=== PATIENT | female | born 1950 | race Caucasian/White ===

== ENCOUNTER 2019-10-27 09:37 | Outpatient (CLI) | payer MEDICARE, SELFPAY ==
[2019-10-27 09:59] LABS: Appearance Urine Clear (Clear); Bilirubin Urine Negative (Negative); Color Urine Yellow (Yellow); Glucose Urine UA Negative (Negative); Ketones Urine Negative (Negative); Leukocyte Esterase Ur 1+ (Negative); Nitrate Urine Negative (Negative); Protein Urine Negative (Negative); Specific Grav Ur 1.025 (1.010-1.020); Urobilinogen Urine 0.2 mg/dL (0.2-1.0); pH Urine 5.5 (5.0-8.0)
[2019-10-27 10:12] LABS: Add Urine Microscopic? YES; Blood Urine Trace (Negative); RBC Urine 0-2 /hpf (0-2)
[2019-10-27 10:13] LABS: Bacteria Urine Trace /hpf; Squamous Epithelial Cell Urine Few /hpf (Few)
[2019-10-27 10:50] LABS: Alanine Aminotransferase 30 U/L (14-59); Albumin Level 3.7 g/dL (3.4-5.0); Alkaline Phosphatase 85 U/L (46-116); Anion Gap 8 mmol/L (8-16); Aspartate Amino Transferase 23 U/L (15-37); Bilirubin,Total 0.8 mg/dL (0.00-1.00); Blood Urea Nitrogen 20 mg/dL (7-18); Calcium 9.7 mg/dL (8.5-10.1); Carbon Dioxide 28 mmol/L (21-32); Chloride 105 mmol/L (98-108); Cholesterol 165 mg/dL (0-200); Creatine Kinase 69 U/L (26-192); Estimated Glomerular Filt Rate 40; Glucose 103 mg/dL (70-99); HDL Direct 41 mg/dL (40-60); LDL Cholesterol Calculated 94 mg/dL (<130); Osmolality Calculated 294 mOsm/kg (285-295); Potassium 4.4 mmol/L (3.5-5.1); Sodium 141 mmol/L (136-145); Total Protein 6.5 g/dL (6.4-8.2); Triglycerides 152 mg/dL (0-150)
== END 2019-10-27 09:38 | disposition home or self-care (01) ==
LOC: CHSLAB 09:40
PROVIDERS: PCP Internal Medicine; Visit Provider Internal Medicine
DX: N18.2 Chronic kidney disease, stage 2 (mild) (principal); I12.9 Hypertensive chronic kidney disease with stage 1 through stage 4 chronic kidney disease, or unspecified chronic kidney disease; E78.2 Mixed hyperlipidemia; R73.01 Impaired fasting glucose
CPT/HCPCS: 36415; 80053; 80061; 81001; 82550; 83036

== ENCOUNTER 2020-05-10 10:01 | Outpatient (CLI) | payer MEDICARE, SELFPAY ==
[2020-05-10 10:23] LABS: Basophils Absolute Auto 0.07 K/mm3 (0.00-0.10); Eosinophils Absolute Auto 0.27 K/mm3 (0.02-0.50); Hematocrit 42.9 % (35.0-42.0); Hemoglobin 14.4 g/dL (11.7-13.8); Immature Granulocyte Absolute 0.02 K/mm3 (0.00-0.00); Immature Granulocyte Percent A 0.3 % (0.0-0.0); Lymphocytes Absolute Auto 1.61 K/mm3 (1.10-4.50); Lymphocytes Percent Auto 23.9 % (18.0-42.0); Mean Corpuscular HGB Conc 33.6 g/dL (32.0-36.0); Mean Corpuscular Volume 89.4 fL (78.0-102.0); Monocytes Absolute Auto 0.53 K/mm3 (0.10-0.90); Monocytes Percent Auto 7.9 % (2.0-11.0); Neutrophils Absolute Auto 4.2 K/mm3 (1.7-7.2); Neutrophils Percent Auto 62.9 % (50.0-70.0); Platelet Count Result 168 K/mm3 (150-420); Red Cell Distribution Width 13.3 % (11.6-14.4); White Blood Count 6.7 K/mm3 (4.8-10.8)
[2020-05-10 10:33] LABS: Hemoglobin A1C 5.4 % (<5.7)
[2020-05-10 10:40] LABS: Add Urine Microscopic? NO; Appearance Urine Clear (Clear); Bilirubin Urine Negative (Negative); Blood Urine Negative (Negative); Color Urine Yellow (Yellow); Glucose Urine UA Negative (Negative); Ketones Urine Negative (Negative); Leukocyte Esterase Ur Negative (Negative); Nitrate Urine Negative (Negative); Protein Urine Negative (Negative); Specific Grav Ur 1.015 (1.010-1.020); Urobilinogen Urine 0.2 mg/dL (0.2-1.0)
[2020-05-10 11:13] LABS: Alanine Aminotransferase 29 U/L (14-59); Albumin Level 3.9 g/dL (3.4-5.0); Alkaline Phosphatase 87 U/L (46-116); Anion Gap 6 mmol/L (8-16); Aspartate Amino Transferase 16 U/L (15-37); Bilirubin,Total 0.8 mg/dL (0.00-1.00); Blood Urea Nitrogen 15 mg/dL (7-18); Calcium 10.2 mg/dL (8.5-10.1); Carbon Dioxide 32 mmol/L (21-32); Chloride 103 mmol/L (98-108); Cholesterol 168 mg/dL (0-200); Creatine Kinase 52 U/L (26-192); Estimated Glomerular Filt Rate 47; Glucose 106 mg/dL (70-99); HDL Direct 41 mg/dL (40-60); LDL Cholesterol Calculated 98 mg/dL (<130); Osmolality Calculated 292 mOsm/kg (285-295); Potassium 4.7 mmol/L (3.5-5.1); Sodium 141 mmol/L (136-145); Total Protein 6.4 g/dL (6.4-8.2); Triglycerides 143 mg/dL (0-150)
[2020-05-14 12:11] LABS: Parathyroid Intact 49 pg/mL (14-64)
== END 2020-05-10 10:02 | disposition home or self-care (01) ==
LOC: CHSLAB 10:05
PROVIDERS: PCP Internal Medicine; Visit Provider Internal Medicine
DX: E78.2 Mixed hyperlipidemia (principal); R73.01 Impaired fasting glucose; I12.9 Hypertensive chronic kidney disease with stage 1 through stage 4 chronic kidney disease, or unspecified chronic kidney disease; E21.0 Primary hyperparathyroidism; N18.2 Chronic kidney disease, stage 2 (mild)
CPT/HCPCS: 36415; 80053; 80061; 81003; 82550; 83036; 83970; 85025

== ENCOUNTER 2021-01-13 10:59 | Outpatient (CLI) | payer MEDICARE, SELFPAY ==
[2021-01-13 11:27] LABS: Hemoglobin A1C 5.7 % (<5.7)
[2021-01-13 11:39] LABS: Add Urine Microscopic? YES; Appearance Urine Clear (Clear); Bilirubin Urine Negative (Negative); Blood Urine Negative (Negative); Color Urine Light Yellow (Yellow); Glucose Urine UA Negative (Negative); Ketones Urine Negative (Negative); Leukocyte Esterase Ur 2+ (Negative); Nitrate Urine Negative (Negative); Protein Urine Negative (Negative); Urobilinogen Urine 0.2 mg/dL (0.2-1.0)
[2021-01-13 11:45] LABS: RBC Urine None seen /hpf (0-2); Squamous Epithelial Cell Urine Moderate /hpf (Few)
[2021-01-13 11:46] LABS: Bacteria Urine Trace /hpf
[2021-01-13 11:54] LABS: Alanine Aminotransferase 36 U/L (14-59); Albumin Level 3.9 g/dL (3.4-5.0); Alkaline Phosphatase 98 U/L (46-116); Anion Gap 7 mmol/L (8-16); Aspartate Amino Transferase 22 U/L (15-37); Bilirubin,Total 0.9 mg/dL (0.00-1.00); Blood Urea Nitrogen 17 mg/dL (7-18); Calcium 10.1 mg/dL (8.5-10.1); Carbon Dioxide 30 mmol/L (21-32); Chloride 103 mmol/L (98-108); Cholesterol 175 mg/dL (0-200); Creatine Kinase 50 U/L (26-192); Estimated Glomerular Filt Rate 44; Glucose 100 mg/dL (70-99); HDL Direct 40 mg/dL (40-60); LDL Cholesterol Calculated 105 mg/dL (<130); Osmolality Calculated 291 mOsm/kg (285-295); Potassium 4.3 mmol/L (3.5-5.1); Sodium 140 mmol/L (136-145); Total Protein 6.5 g/dL (6.4-8.2); Triglycerides 148 mg/dL (0-150)
[2021-01-16 11:58] LABS: Parathyroid Intact 58 pg/mL (14-64)
== END 2021-01-13 11:00 | disposition home or self-care (01) ==
LOC: CHSLAB 11:02
PROVIDERS: PCP Internal Medicine; Visit Provider Internal Medicine
DX: R73.01 Impaired fasting glucose (principal); I12.9 Hypertensive chronic kidney disease with stage 1 through stage 4 chronic kidney disease, or unspecified chronic kidney disease; N18.2 Chronic kidney disease, stage 2 (mild); E21.0 Primary hyperparathyroidism
CPT/HCPCS: 36415; 80053; 80061; 81001; 82550; 83036; 83970

== ENCOUNTER 2021-02-04 08:20 | Outpatient (CLI) | payer MEDICARE, SELFPAY ==
--- NOTE | ~2021-02-04 | MM_ITS ---
EXAMINATION: MM screening edward BI w maribel HISTORY: Screening mammogram TECHNIQUE: Craniocaudal and mediolateral oblique 3-D tomosynthesis images were obtained and synthetic 2-D images were generated. CAD analysis was submitted and interpreted. COMPARISON: 09/14/2018, 09/13/2017 screening mammogram examinations BREAST PARENCHYMAL COMPOSITION: The breasts are heterogeneously dense, which may obscure small masses . FINDINGS: There is no evidence of suspicious mass, calcification, or architectural distortion to sugg est malignancy in either breast. There has been no suspicious interval change. IMPRESSION: 1. No mammographic evidence of malignancy. 2. Recommend routine screening mammography in one year. BI-RADS Category 1: Negative Reviewed, dictated and finalized at location A. 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
== END 2021-02-04 08:21 | disposition home or self-care (01) ==
LOC: CHSIMG 08:22
PROVIDERS: PCP Internal Medicine; Visit Provider Internal Medicine
DX: Z12.31 Encounter for screening mammogram for malignant neoplasm of breast (principal)
CPT/HCPCS: 77063; 77067

== ENCOUNTER 2021-08-10 09:46 | Outpatient (CLI) | payer MEDICARE, SELFPAY ==
[2021-08-10 10:06] LABS: Add Urine Microscopic? NO; Appearance Urine Clear (Clear); Bilirubin Urine Negative (Negative); Blood Urine Negative (Negative); Color Urine Light Yellow (Yellow); Glucose Urine UA Negative (Negative); Ketones Urine Negative (Negative); Leukocyte Esterase Ur Negative (Negative); Nitrate Urine Negative (Negative); Protein Urine Negative (Negative); Specific Grav Ur 1.015 (1.010-1.020); Urobilinogen Urine 0.2 mg/dL (0.2-1.0)
[2021-08-10 10:15] LABS: Hemoglobin A1C 5.8 % (<5.7)
[2021-08-10 10:19] LABS: Alanine Aminotransferase 25 U/L (14-59); Albumin Level 3.7 g/dL (3.4-5.0); Alkaline Phosphatase 88 U/L (46-116); Anion Gap 5 mmol/L (8-16); Aspartate Amino Transferase 28 U/L (15-37); Bilirubin,Total 0.7 mg/dL (0.00-1.00); Blood Urea Nitrogen 24 mg/dL (7-18); Calcium 9.8 mg/dL (8.5-10.1); Carbon Dioxide 29 mmol/L (21-32); Chloride 104 mmol/L (98-108); Estimated Glomerular Filt Rate 44; Glucose 111 mg/dL (70-99); Osmolality Calculated 291 mOsm/kg (285-295); Potassium 4.1 mmol/L (3.5-5.1); Sodium 138 mmol/L (136-145); Total Protein 6.9 g/dL (6.4-8.2)
[2021-08-13 15:25] LABS: Parathyroid Intact 89 pg/mL (14-64)
== END 2021-08-10 09:47 | disposition home or self-care (01) ==
LOC: CHSLAB 09:49
PROVIDERS: PCP Internal Medicine; Visit Provider Internal Medicine
DX: R73.01 Impaired fasting glucose (principal); I10 Essential (primary) hypertension; E21.0 Primary hyperparathyroidism
CPT/HCPCS: 36415; 80053; 81003; 83036; 83970

== ENCOUNTER 2022-03-02 12:01 | Outpatient (CLI) | payer MEDICARE, SELFPAY ==
--- NOTE | ~2022-03-02 | MM_ITS ---
EXAMINATION: MM screening edward BI w maribel HISTORY: Screening mammogram TECHNIQUE: Craniocaudal and mediolateral oblique 3-D tomosynthesis images were obtained and synthetic 2-D images were generated. CAD analysis was submitted and interpreted. COMPARISON: 02/04/2021, 09/14/2018, 09/13/2017 bilateral screening mammogram examinations BREAST PARENCHYMAL COMPOSITION: The breasts are heterogeneously dense, which may obscure small masses . FINDINGS: There is no evidence of suspicious mass, calcification, or architectural distortion to sugg est malignancy in either breast. There has been no suspicious interval change. IMPRESSION: 1. No mammographic evidence of malignancy. 2. Recommend routine screening mammography in one year. BI-RADS Category 1: Negative Reviewed, dictated and finalized at location A. 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
--- NOTE | ~2022-03-02 | DEXA_ITS ---
Bone Density Report Name: PEYMAN LOJA Age: 71 Sex: Female Ethnicity: White Date of : 1950 Indication: postmenopausal; screening for osteoporosis; height loss; hysterectomy; Referring Provider: Jayashree Alan Study: Bone densitometry was performed. Exam Date: March 02, 2022 Accession number: [id number] Bone Density: Region BMD T-score Z-score Classification AP Spine(L1, L2, L3) 1.116 0.9 3.1 Normal Femoral Neck (Left) 0.689 -1.4 0.5 Osteopenia Total Hip (Left) 0.854 -0.7 1.0 Normal Femoral Neck (Right) 0.758 -0.8 1.2 Normal Total Hip (Right) 0.863 -0.7 1.0 Normal Femoral Neck Mean 0.723 -1.1 0.9 Osteopenia Total Hip Mean 0.858 -0.7 1.0 Normal World Health Organization criteria for BMD impression classify patients as: Normal (T-score at or above -1.0), Osteopenia (T-score between -1.0 and -2.5), or Osteoporosis (T-score at or below -2.5). 10-year Fracture Risk(1): Major Osteoporotic Fracture 9.5% Hip Fracture 1.5% Reported Risk Factors: [place] (), Neck BMD=0.689, BMI=38.6 (1) FRAX(R) Version 3.08. Fracture probability calculated for an untreated patient. Fracture probability may be lower if the patient has received treatment. Clinical Information Provided by Patient: Has used the following medications: Vitamin D, multivit Has the following medical conditions: Hysterectomy Patient maximum height was 65 Menopause Age: 48 No regular weight bearing exercise Drinks caffeinated beverages Onset of menses at age 12 Number of children 3 Missed period for more than 6 months in a row Impression: The patient has low bone mass, based on the Left Femoral Neck T-score. Discussion: BONE DENSITY IS LOW AT ONE OR MORE SKELETAL SITES. This patient's lowest T-score is low at one or more skeletal sites. It meets the World Health Organization's (WHO) criteria for ?low bone mass? (T-score between -1.0 and -2.5). The patient's 10-year risk of fracture as calculated by FRAX is less than the threshold where pharmacological therapy is recommended by the National Osteoporosis Foundation (NOF). However, all treatment decisions require clinical judgment and consideration of individual patient factors, including patient preferences, comorbidities, previous drug use, risk factors not captured in the FRAX model (e.g., frailty, falls, vitamin D deficiency, increased bone turnover, interval significant decline in bone density) and possible under or overestimation of fracture risk by FRAX. The patient should follow a healthful lifestyle (good nutrition with adequate calcium and vitamin D, and appropriate weight-bearing exercise). Follow-Up: Consider repeating this study in 2 to 3 years to reassess this patient's status, or sooner if there is some new clinical indica
[2022-03-02 12:39] LABS: Add Urine Microscopic? YES; Appearance Urine Clear (Clear); Basophils Absolute Auto 0.04 K/mm3 (0.00-0.10); Basophils Percent Auto 0.7 % (0.0-1.0); Bilirubin Urine Negative (Negative); Blood Urine Trace-Intact (Negative); Color Urine Light Yellow (Yellow); Eosinophils Absolute Auto 0.24 K/mm3 (0.02-0.50); Eosinophils Percent Auto 3.9 % (1.0-6.0); Glucose Urine UA Negative (Negative); Hematocrit 41.3 % (35.0-42.0); Immature Granulocyte Absolute 0.04 K/mm3 (0.00-0.00); Immature Granulocyte Percent A 0.7 % (0.0-0.0); Ketones Urine Negative (Negative); Leukocyte Esterase Ur 1+ (Negative); Lymphocytes Absolute Auto 1.56 K/mm3 (1.10-4.50); Lymphocytes Percent Auto 25.7 % (18.0-42.0); Mean Corpuscular HGB Conc 33.9 g/dL (32.0-36.0); Mean Corpuscular Hemoglobin 30.4 pg (27.0-31.0); Mean Corpuscular Volume 89.6 fL (78.0-102.0); Monocytes Percent Auto 8.2 % (2.0-11.0); Neutrophils Absolute Auto 3.7 K/mm3 (1.7-7.2); Neutrophils Percent Auto 60.8 % (50.0-70.0); Nitrate Urine Negative (Negative); Platelet Count Result 162 K/mm3 (150-420); Protein Urine Negative (Negative); Red Blood Count 4.61 M/mm3 (4.20-5.40); Red Cell Distribution Width 13.5 % (11.6-14.4); Urobilinogen Urine 0.2 mg/dL (0.2-1.0); White Blood Count 6.1 K/mm3 (4.8-10.8)
[2022-03-02 12:44] LABS: Bacteria Urine Trace /hpf; RBC Urine None seen /hpf (0-2); Squamous Epithelial Cell Urine Few /hpf (Few); WBC Urine 0-3 /hpf (0-3)
[2022-03-02 12:50] LABS: Hemoglobin A1C 5.9 % (<5.7)
[2022-03-02 13:18] LABS: Alanine Aminotransferase 28 U/L (14-59); Albumin Level 3.8 g/dL (3.4-5.0); Alkaline Phosphatase 83 U/L (46-116); Anion Gap 4 mmol/L (8-16); Aspartate Amino Transferase 22 U/L (15-37); Bilirubin,Total 0.6 mg/dL (0.00-1.00); Blood Urea Nitrogen 14 mg/dL (7-18); Calcium 9.7 mg/dL (8.5-10.1); Carbon Dioxide 33 mmol/L (21-32); Chloride 106 mmol/L (98-108); Cholesterol 185 mg/dL (0-200); Estimated Glomerular Filt Rate 51; Free T3 2.24 pg/mL (2.18-3.98); Free T4 Free Thyroxine 0.92 ng/dL (0.76-1.46); Glucose 108 mg/dL (70-99); HDL Direct 46 mg/dL (40-60); LDL Cholesterol Calculated 112 mg/dL (<130); Osmolality Calculated 297 mOsm/kg (285-295); Potassium 4.9 mmol/L (3.5-5.1); Sodium 143 mmol/L (136-145); Thyroid Stimulating Hormone 0.92 uIU/mL (0.36-3.74); Total Protein 6.4 g/dL (6.4-8.2); Triglycerides 135 mg/dL (0-150)
[2022-03-04 20:43] LABS: Parathyroid Intact 88 pg/mL (14-64)
== END 2022-03-02 12:02 | disposition home or self-care (01) ==
LOC: CHSIMG 12:04
PROVIDERS: PCP Internal Medicine; Visit Provider Internal Medicine
DX: Z12.31 Encounter for screening mammogram for malignant neoplasm of breast (principal); Z78.0 Asymptomatic menopausal state; R73.01 Impaired fasting glucose; M81.0 Age-related osteoporosis without current pathological fracture; E21.0 Primary hyperparathyroidism; E78.2 Mixed hyperlipidemia; I10 Essential (primary) hypertension; M85.89 Other specified disorders of bone density and structure, multiple sites
CPT/HCPCS: 36415; 77063; 77067; 77080; 80053; 80061; 81001; 83036; 83970; 84439; 84443; 84481; 85025

== ENCOUNTER 2022-09-03 09:12 | Outpatient (CLI) | payer MEDICARE, SELFPAY ==
[2022-09-03 09:38] LABS: Basophils Absolute Auto 0.05 K/mm3 (0.00-0.10); Basophils Percent Auto 0.8 % (0.0-1.0); Eosinophils Absolute Auto 0.22 K/mm3 (0.02-0.50); Eosinophils Percent Auto 3.5 % (1.0-6.0); Hematocrit 42.4 % (35.0-42.0); Hemoglobin 14.3 g/dL (11.7-13.8); Immature Granulocyte Absolute 0.01 K/mm3 (0.00-0.00); Immature Granulocyte Percent A 0.2 % (0.0-0.0); Immature Platelet Fraction Pct 6.1 % (1.0-7.0); Lymphocytes Absolute Auto 1.47 K/mm3 (1.10-4.50); Lymphocytes Percent Auto 23.7 % (18.0-42.0); Mean Corpuscular HGB Conc 33.7 g/dL (32.0-36.0); Mean Corpuscular Hemoglobin 30.4 pg (27.0-31.0); Mean Platelet Volume 11.6 fl (9.2-11.8); Monocytes Absolute Auto 0.71 K/mm3 (0.10-0.90); Monocytes Percent Auto 11.5 % (2.0-11.0); Neutrophils Absolute Auto 3.7 K/mm3 (1.7-7.2); Neutrophils Percent Auto 60.3 % (50.0-70.0); Platelet Count Result 138 K/mm3 (150-420); Red Blood Count 4.71 M/mm3 (4.20-5.40); Red Cell Distribution Width 13.1 % (11.6-14.4); White Blood Count 6.2 K/mm3 (4.8-10.8)
[2022-09-03 09:43] LABS: Appearance Urine Clear (Clear); Bilirubin Urine Negative (Negative); Blood Urine Negative (Negative); Color Urine Light Yellow (Yellow); Glucose Urine UA Negative (Negative); Ketones Urine Negative (Negative); Leukocyte Esterase Ur 3+ (Negative); Nitrate Urine Negative (Negative); Protein Urine Negative (Negative); Urobilinogen Urine 0.2 mg/dL (0.2-1.0)
[2022-09-03 09:52] LABS: Add Urine Microscopic? YES; RBC Urine 0-2 /hpf (0-2); Squamous Epithelial Cell Urine Few /hpf (Few)
[2022-09-03 09:53] LABS: Bacteria Urine 1+ /hpf
[2022-09-03 09:56] LABS: Hemoglobin A1C 5.7 % (<5.7)
[2022-09-03 10:32] LABS: Alanine Aminotransferase 30 U/L (14-59); Albumin Level 3.7 g/dL (3.4-5.0); Alkaline Phosphatase 93 U/L (46-116); Anion Gap 6 mmol/L (8-16); Aspartate Amino Transferase 15 U/L (15-37); Bilirubin,Total 0.7 mg/dL (0.00-1.00); Blood Urea Nitrogen 18 mg/dL (7-18); Calcium 10.1 mg/dL (8.5-10.1); Carbon Dioxide 32 mmol/L (21-32); Chloride 103 mmol/L (98-108); Cholesterol 161 mg/dL (0-200); Estimated Glomerular Filt Rate 50; Glucose 102 mg/dL (70-99); HDL Direct 42 mg/dL (40-60); LDL Cholesterol Calculated 90 mg/dL (<130); Osmolality Calculated 293 mOsm/kg (285-295); Potassium 4.6 mmol/L (3.5-5.1); Sodium 141 mmol/L (136-145); Total Protein 6.3 g/dL (6.4-8.2); Triglycerides 146 mg/dL (0-150)
[2022-09-07 03:54] LABS: Parathyroid Intact 73 pg/mL (14-64)
== END 2022-09-03 09:13 | disposition home or self-care (01) ==
LOC: CHSLAB 09:15
PROVIDERS: PCP Internal Medicine; Visit Provider Internal Medicine
DX: I10 Essential (primary) hypertension (principal); R73.01 Impaired fasting glucose; E21.0 Primary hyperparathyroidism; E78.2 Mixed hyperlipidemia
CPT/HCPCS: 36415; 80053; 80061; 81001; 83036; 83970; 85025; 85055

== ENCOUNTER 2023-04-05 13:10 | Outpatient (CLI) | payer MEDICARE, SELFPAY ==
--- NOTE | ~2023-04-05 | MM_ITS ---
EXAMINATION: MM screening edward BI w maribel HISTORY: Screening TECHNIQUE: Craniocaudal and mediolateral oblique 3-D tomosynthesis images were obtained and synthetic 2-D images were generated. CAD analysis was submitted and interpreted. COMPARISON: Comparison to multiple prior studies sequentially, with oldest reviewed study dated 09/13. BREAST PARENCHYMAL COMPOSITION: There are scattered areas of fibroglandular density. FINDINGS: There is asymmetric soft tissue abnormality subareolar location of the left breast. The rig ht breast is stable without evidence for malignancy. IMPRESSION: 1. Left breast asymmetry. 2. Additional mammographic views and possible breast ultrasound are recommended. BI-RADS Category 0: Incomplete: Needs additional imaging evaluation. Reviewed, dictated and finalized at location A. 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 Left breast asymmetry. 2. Additional mammographic views and possible breast ultrasound are recommended . BI-RADS Category 0: Incomplete: Needs additional imaging evaluation.
== END 2023-04-05 13:11 | disposition home or self-care (01) ==
LOC: CHSIMG 13:15
PROVIDERS: PCP Internal Medicine; Visit Provider Internal Medicine
DX: Z12.31 Encounter for screening mammogram for malignant neoplasm of breast (principal); R92.8 Other abnormal and inconclusive findings on diagnostic imaging of breast
CPT/HCPCS: 77063; 77067

== ENCOUNTER 2023-04-15 09:19 | Outpatient (CLI) | payer MEDICARE, SELFPAY ==
--- NOTE | ~2023-04-15 | MMUS_ITS ---
EXAMINATION: MM diagnostic edward LT w maribel, US breast LT complete HISTORY: Abnormal screening mammogram TECHNIQUE: Additional 3-D tomosynthesis images of the left breast were performed and synthetic 2-D im ages were generated. CAD analysis was submitted and interpreted. High resolution complete left breast ultrasound examination including all 4 quadrants and subareolar area was performed. COMPARISON: 04/05/2023, 03/02/2022, 02/04/2021 bilateral screening mammogram examinations FINDINGS: MAMMOGRAPHIC FINDINGS: There is asymmetry in the lateral mid left breast at mid depth. ULTRASOUND: . 3:00 5 cm from nipple: Irregular poorly marginated hypoechoic area measuring up to approximately 1. 8 cm dimension is noted, without internal vascularity. There is some through transmission and posteri or enhancement. This is indeterminate, but the irregular margins and hypoechogenicity or suspicious. Ultrasound-guided biopsy is recommended. No other suspicious finding is noted. IMPRESSION: 1. Indeterminate irregular hypoechoic area with through transmission posterior enhancement at 3:00 5 cm from nipple 2. Ultrasound-guided biopsy is recommended BI-RADS category 4, suspicious findings. Dr. Soler telephoned the report and ultrasound-guided biopsy recommendation to Dr. Jose bah's voice mail on April 15, 2023 at 1025 hours. Reviewed, dictated and finalized at location A. ESS TRAINER IMPRESSION: 1. Indeterminate irregular hypoechoic area with through transmission posterior enhancement at 3:00 5 cm from nipple 2. Ultrasound-guided biopsy is recommended BI-RADS category 4, suspicious findings. Dr. Soler telephoned the report and ultrasound-guided biopsy recommendation to Olivia Garcia nurse's voicemail on April 15, 2023 at 1025 hours.
[2023-04-15 09:40] LABS: Basophils Absolute Auto 0.06 K/mm3 (0.00-0.10); Basophils Percent Auto 0.8 % (0.0-1.0); Eosinophils Absolute Auto 0.14 K/mm3 (0.02-0.50); Eosinophils Percent Auto 1.8 % (1.0-6.0); Hemoglobin 15.2 g/dL (11.7-13.8); Immature Granulocyte Absolute 0.05 K/mm3 (0.00-0.00); Immature Granulocyte Percent A 0.6 % (0.0-0.0); Lymphocytes Absolute Auto 1.53 K/mm3 (1.10-4.50); Lymphocytes Percent Auto 19.6 % (18.0-42.0); Mean Corpuscular HGB Conc 33.8 g/dL (32.0-36.0); Mean Corpuscular Hemoglobin 29.8 pg (27.0-31.0); Mean Corpuscular Volume 88.2 fL (78.0-102.0); Mean Platelet Volume 11.9 fl (9.2-11.8); Monocytes Absolute Auto 0.68 K/mm3 (0.10-0.90); Monocytes Percent Auto 8.7 % (2.0-11.0); Neutrophils Absolute Auto 5.4 K/mm3 (1.7-7.2); Neutrophils Percent Auto 68.5 % (50.0-70.0); Platelet Count Result 167 K/mm3 (150-420); Red Cell Distribution Width 13.1 % (11.6-14.4); White Blood Count 7.8 K/mm3 (4.8-10.8)
[2023-04-15 09:50] LABS: Appearance Urine Clear (Clear); Bilirubin Urine Negative (Negative); Blood Urine Negative (Negative); Color Urine Light Yellow (Yellow); Glucose Urine UA Negative (Negative); Ketones Urine Negative (Negative); Leukocyte Esterase Ur 1+ LEU/UL (Negative); Nitrate Urine Negative (Negative); Protein Urine Negative (Negative); Urobilinogen Urine 0.2 mg/dL (0.2-1.0)
[2023-04-15 09:54] LABS: Hemoglobin A1C 5.9 % (<5.7)
[2023-04-15 09:58] LABS: Add Urine Microscopic? YES; Bacteria Urine 3+ /hpf; RBC Urine None seen /hpf (0-2); Squamous Epithelial Cell Urine Few /hpf (Few); WBC Urine 0-5 /hpf (0-3)
[2023-04-15 10:33] LABS: Alanine Aminotransferase 31 U/L (14-59); Alkaline Phosphatase 88 U/L (46-116); Anion Gap 9 mmol/L (8-16); Aspartate Amino Transferase 28 U/L (15-37); Bilirubin,Total 0.9 mg/dL (0.00-1.00); Blood Urea Nitrogen 17 mg/dL (7-18); Calcium 10.4 mg/dL (8.5-10.1); Carbon Dioxide 29 mmol/L (21-32); Chloride 99 mmol/L (98-108); Cholesterol 164 mg/dL (0-200); Creatine Kinase 71 U/L (26-192); Estimated Glomerular Filt Rate 53; Free T3 2.28 pg/mL (2.18-3.98); Free T4 Free Thyroxine 1.26 ng/dL (0.76-1.46); Glucose 132 mg/dL (70-99); HDL Direct 48 mg/dL (40-60); LDL Cholesterol Calculated 93 mg/dL (<130); Osmolality Calculated 287 mOsm/kg (285-295); Potassium 4.5 mmol/L (3.5-5.1); Sodium 137 mmol/L (136-145); Thyroid Stimulating Hormone 1.06 uIU/mL (0.36-3.74); Total Protein 6.7 g/dL (6.4-8.2); Triglycerides 115 mg/dL (0-150)
== END 2023-04-15 09:20 | disposition home or self-care (01) ==
LOC: CHSIMG 09:21
PROVIDERS: PCP Internal Medicine; Visit Provider Internal Medicine
DX: N39.0 Urinary tract infection, site not specified (principal); I10 Essential (primary) hypertension; E21.0 Primary hyperparathyroidism; R73.01 Impaired fasting glucose; E78.5 Hyperlipidemia, unspecified; R92.8 Other abnormal and inconclusive findings on diagnostic imaging of breast
CPT/HCPCS: 36415; 76641; 77061; 77065; 80053; 80061; 81001; 82550; 83036; 84439; 84443; 84481; 85025; 87077; 87086; 87088; 87186; G0279

== ENCOUNTER 2023-04-27 12:30 | Outpatient (CLI) | payer MEDICARE, SELFPAY ==
[2023-04-27 12:54] LABS: Appearance Urine Clear (Clear); Bilirubin Urine Negative (Negative); Blood Urine Negative (Negative); Color Urine Light Yellow (Yellow); Glucose Urine UA Negative (Negative); Ketones Urine Negative (Negative); Leukocyte Esterase Ur Trace LEU/UL (Negative); Nitrate Urine Negative (Negative); Protein Urine Negative (Negative); Urobilinogen Urine 0.2 mg/dL (0.2-1.0)
[2023-04-27 13:01] LABS: Add Urine Microscopic? YES; Bacteria Urine Rare /hpf; RBC Urine None seen /hpf (0-2); Squamous Epithelial Cell Urine Occasional /hpf (Few); WBC Urine 0-3 /hpf (0-3)
== END 2023-04-27 12:31 | disposition home or self-care (01) ==
LOC: CHSLAB 12:31
PROVIDERS: PCP Internal Medicine; Visit Provider Internal Medicine
DX: N39.0 Urinary tract infection, site not specified (principal)
CPT/HCPCS: 81001

== ENCOUNTER 2024-04-25 12:37 | Outpatient (CLI) | payer MEDICARE, SELFPAY ==
--- NOTE | ~2024-04-25 | DEXA_ITS ---
Bone Density Report Name: PEYMAN LOJA Age: 73 Sex: Female Ethnicity: White Date of : 1950 Indication: postmenopausal; screening for osteoporosis; cancer; hysterectomy; Referring Provider: UNKNOWN, UNKNOWN Study: Bone densitometry was performed. Exam Date: April 25, 2024 Accession number: [id number] Bone Density: Region BMD T-score Z-score Classification AP Spine(L2, L3) 1.076 0.2 2.6 Normal Femoral Neck (Left) 0.711 -1.2 0.9 Osteopenia Total Hip (Left) 0.901 -0.3 1.5 Normal Femoral Neck (Right) 0.790 -0.5 1.6 Normal Total Hip (Right) 0.922 -0.2 1.6 Normal Femoral Neck Mean 0.750 -0.9 1.2 Normal Total Hip Mean 0.912 -0.2 1.6 Normal World Health Organization criteria for BMD impression classify patients as: Normal (T-score at or above -1.0), Osteopenia (T-score between -1.0 and -2.5), or Osteoporosis (T-score at or below -2.5). 10-year Fracture Risk(1): Major Osteoporotic Fracture 9.4% Hip Fracture 1.5% Reported Risk Factors: [place] (), Neck BMD=0.711, BMI=38.0 (1) FRAX(R) Version 3.08. Fracture probability calculated for an untreated patient. Fracture probability may be lower if the patient has received treatment. Previous Exams: Region Exam Age BMD T-score BMD Change BMD Change Date g/cm2 vs Baseline vs Previous AP Spine (L2-L3) 04/25/2024 73 1.076 0.2 -0.028 (-2.6%) -0.028 (-2.6%) 03/02/2022 71 1.105 0.4 Total Hip(Left) 04/25/2024 73 0.901 -0.3 0.047 (5.5%)# 0.047 (5.5%)# 03/02/2022 71 0.854 -0.7 Total Hip(Right) 04/25/2024 73 0.922 -0.2 0.059 (6.9%)# 0.059 (6.9%)# 03/02/2022 71 0.863 -0.7 *Denotes significance at 95% confidence level, LSC for AP Spine = 0.022 g/cm2, LSC for Total Hip = 0.027 g/cm2 # Denotes dissimilar scan types or analysis methods Clinical Information Provided by Patient: Has used the following medications: HRT (i.e. estrogen/hormone therapy), Vitamin D Has the following medical conditions: Cancer, Hysterectomy Patient maximum height was 65 Menopause Age: 48 No regular weight bearing exercise Does not regularly consume dairy products Drinks caffeinated beverages Onset of menses at age 12 Number of children 3 Impression: The patient has low bone mass, based on the Left Femoral Neck T-score. No significant bone loss was observed. Discussion: BONE DENSITY IS LOW AT ONE OR MORE SKELETAL SITES. This patient's lowest T-score is low at one or more skeletal sites. It meets the World Health Organization's (WHO) criteria for ?low bone mass? (T-score between -1.0 and -2.5). The patient's 10-year risk of fracture as calculated by FRAX is less than the threshold where pharmacological therapy is recommended by the National Osteoporosis Foundation (NOF). However, all treatment decisions require clinical judgment and consideration of individual patient factors, including patient preferences, comorbidities, previous drug use, risk factors not captured in the FRAX model (e.g., frailty, falls, vitamin D deficiency, increased bone turnover, interval significant decline in bone density) and possible under or overestimation of fracture risk by FRAX. The patient should follow a healthful lifestyle (good nutrition with adequate calcium and vitamin D, and appropriate weight-bearing exercise). Follow-Up: Consider repeating this study in 2 to 3 years to reassess this patient's status, or sooner if there is some new clinical indication. Reported by: SANTANA on 04/25/2024 1:21:00 PM. Reviewed, dictated and finalized at location A.
--- OUTSIDE RECORDS SUMMARY | 2024-04-25 12:43 | XMS_ITS | Clinical Summary ---
Author Organization [place] [id number] [facility] Address [address] [place] [address] Care Team Providers Care Icer Air Conditioning Name Role Phone Jayashree Alan MD Primary Care Provider + [phone] Arpan Zamora MD Unavailable Victoria Connolly MD PhD Unavailable [phone] Allergies Active Allergy Reactions Criticality Noted Date Comments Adhesive Blisters High 05/23/2023 Sulfa Nausea only Low 10/19/2023 Medications carvediloL (COREG) 25 mg tabletIndications: hypertension Take 1 tablet (25 mg total) by mouth 2 (two) times a day 02/28/20 23 Active losartan-hydrochlo rothiazide (HYZAAR) 100-25 mg per tabletIndications: hypertension Take 1 tablet by mouth every morning 02/28/20 23 Active spironolactone (ALDACTONE) 25 mg tabletIndications: hypertension Take 0.5 tablets (12.5 mg total) by mouth every morning 02/28/20 23 Active cetirizine (ZyrTEC) 10 mg tabletIndications: Perennial Allergic Rhinitis Take 1 tablet (10 mg total) by mouth every morning Active ALPRAZolam (NIRAVAM) 0.25 mg disintegrating tabletIndications: anxiety,and sleep Take 0.125 mg by mouth 2 (two) times a day Active ipratropium (ATROVENT) 21 mcg (0.03 %) nasal spray Administer 2 sprays into each nostril 2 (two) times a day as needed for rhinitis Active MULTIVITAMIN ORALIndications:Fo r supplement Take by mouth every morning Active hydrocortisone 1 % creamIndications:M alignant neoplasm of upper-outer quadrant of left breast in female, estrogen receptor positive (HCC) Apply 1 Application topically nightly Apply to left breast/chest at bedtime. 56 g 10/06/19 24 Active losartan (COZAAR) 100 mg tablet Take 1 tablet (100 mg total) by mouth daily 02/28/20 24 Active anastrozole (ARIMIDEX) 1 mg tabletIndications: Malignant neoplasm of central portion of left breast in female, estrogen receptor positive (HCC) Take 1 tablet (1 mg total) by mouth daily ; to begin taking 2 weeks after the completion of radiation therapy 30 tablet 11 04/11/19 25 026 Active anastrozole (ARIMIDEX) 1 mg tabletIndications: Malignant neoplasm of central portion of left breast in female, estrogen receptor positive (HCC) Take 1 tablet (1 mg total) by mouth daily ; to begin taking 2 weeks after the completion of radiation therapy 30 tablet 11 09/16/19 24 025 Discontin ued(Reord er) Active Problems Problem Noted Date Diagnosed Date Malignant neoplasm of centra l portion of left breast in female, estrogen receptor positive 08/05/2023 Cancer Staging:Clinical:Stage IB(cT1c, cN1, cM0, G2, ER+, ND+, HER2-) - Unsigned Abnormal mammogram 07/08/2023 Mass of left breast 05/23/2023 Abnormal mammogram of left breast 05/23/2023 Encounters Date Type Department Care Team Description 04/11/2024 9:30 AM CASTING PLUG ASSEMBLER Office Visit [facility] Oncology [address] [place] [address] [address] [place] [id number] Arpan Zamora MD Malignant neoplasm of central portion of left breast in female, estrogen receptor positive (HCC) (Primary Dx); [facility] (current) use of aromatase inhibitors; Malignant neoplasm of upper-outer quadrant of left breast in female, estrogen receptor positive (HCC) 03/22/2024 9:45 AM CASTING PLUG ASSEMBLER - 03/22/2024 11:59 PM CASTING PLUG ASSEMBLER Hospital Encounter [facility] - Breast Imaging [address] [place] [address] [address] [place] [address] Malignant neoplasm of upper-outer quadrant of left breast in female, estrogen receptor positive (HCC) Discharge Disposition: Discharge to home or self care 03/22/2024 8:30 AM CASTING PLUG ASSEMBLER Office Visit [facility] Surgery [address] [facility] Floor [address] [place] [address] Tamar Prakash MD PhD Encounter for follow-up surveillance of breast cancer (Primary Dx); History of partial mastectomy of left breast; Malignant neoplasm of upper-outer quadrant of left breast in female, estrogen receptor positive (HCC) 03/22/2024 8:17 AM CASTING PLUG ASSEMBLER - 03/22/2024 11:59 PM CASTING PLUG ASSEMBLER Hospital Encounter [facility] - Breast Imaging [address] [facility] [address] [place] [address] Malignant neoplasm of upper-outer quadrant of left breast in female, estrogen receptor positive (HCC) Discharge Disposition: Discharge to home or self care from Last 3 Months Immunizations Immunization Administration Dates Next Due Influenza, Quad, Adjuvantated, Intramuscular 05/2022,01/13/2022 Influenza, Quadrivalent, Spl it, Preservative Free, Intramuscular 11/07/2019,03/06/2019 Pneumococcal Conjugate PCV 13 09/28/2017 Pneumococcal Polysaccharide PPV23 03/24/2018 Tdap 09/01/2022 Surgical History Surgery Date Site/Laterality Comments SECTION 03/07/1974 - 03/06/1975 SECTION 03/07/1977 - 03/06/1978 HYSTERECTOMY 03/07/1980 - 03/06/1981 BREAST BIOPSY 05/25/2023 Left TONSILLECTOMY as a teenager MASTECTOMY, PARTIAL 08/05/2023 Left Medical History Medical History Date Comments Hypertension Depression Breast cancer (HCC) Family History Medical History Relation Name Comments Throat cancer Father Relation Name Status Comments Father Social History Tobacco Use Types Packs/Day Years Used Date Smoking Tobacco: Never Smokeless Tobacco: Never Tobacco Cessation:Counseling Given: Not Answered AUDIT-C Answer Date Recorded Q1: How often do you have a drink containing alc ohol? Monthly or less 08/05/2023 Q2: How many drinks containi ng alcohol do you have on a typical day when you are drinking? 1 or 2 08/05/2023 Q3: How often do you have si x or more drinks on one occasion? Never 08/05/2023 Personal Safety Answer Date Recorded Have you ever been in or are you currently in a harmful physical or emotional relationship or is someone making you feel afraid or unsafe? Denies 08/05/2023 Comments No Sex and Gender Information Value Date Recorded Sex Assigned at Not on file Legal Sex Female 2:40 PM CASTING PLUG ASSEMBLER Gender Identity Not on file Sexual Orientation Not on file Obstetrics History Last Filed Vital Signs Vital Sign Reading Time Taken Comments Blood Pressure 159/130 04/11/2024 9:26 AM CASTING PLUG ASSEMBLER Pulse 62 04/11/2024 9:26 AM CASTING PLUG ASSEMBLER Temperature 36.9 C (98.5 F) 04/11/2024 9:26 AM CASTING PLUG ASSEMBLER Respiratory Rate 16 04/11/2024 9:26 AM CASTING PLUG ASSEMBLER Oxygen Saturation 96% 04/11/2024 9:26 AM CASTING PLUG ASSEMBLER Inhaled Oxygen Concentration - - Weight 101.6 kg (224 lb) 04/11/2024 9:26 AM CASTING PLUG ASSEMBLER Height 165.1 cm (5' 5 ) 03/22/2024 8:36 AM CASTING PLUG ASSEMBLER Body Mass Index 37.28 03/22/2024 8:36 AM CASTING PLUG ASSEMBLER Plan of Treatment Health Maintenance Due Date Last Done Comments Colon Cancer Screening-Colonoscopy 1950 Depression Screening 1950 Hepatitis C Screening 1950 Osteoporosis Screening-Bone Density Scan 1948 Hepatitis B Screening 1966 Zoster Vaccine (1 of 2) 11/11/1967 Well Visit 65+ 2013 Covid-19 Vaccine (2023-2 5 season) 2023 12/07/2022, 01/13/2022, 07/24/2021, Additional history exists Influenza Vaccine (#1) 2023 , 01/13/2022, 11/07/2019, Additional history exists Fall Risk Assessment 09/11/2024 09/12/2023, 08/05/19 24 DTaP/Tdap/Td Vaccine (2 - Td or Tdap) 09/01/2032 09/01/2022 Pneumococcal vaccine 65+ Completed 03/24/2018, 09/05 Breast Cancer Screening-Mammogram Discontinued 025 Medical Devices Implanted Type Area Machine Whitener Device Identifier Shelf Expiration Date Model / Serial / Lot Bard Peripheral Vascular Ultraclip Bard 17ga 10cm 2 Trigger Permanent Ultrasound [id number] - [id number] Implanted:Qty: 1 on 05/25/2023 at [facility] Left: Breast Bard Peripheral Vascular [id number] / / [employer] [place] 20ga 7.5cm 2 Part Stabilizer Repositionable Depth Uday [id number] - [id number] Implanted:Qty: 1 on 08/05/2023 at [facility] [employer] [id number] 12/31/2027 [id number] / / [id number] Procedures Procedure Name Priority Date/Time Associated Diagnosis Comments US BREAST RIGHT LIMITED Schedule Routine, Read Routine (OP Routine) 03/22/2024 10:01 AM CASTING PLUG ASSEMBLER Malignant neoplasm of upper-outer quadrant of left breast in female, estrogen receptor positive (HCC) DIAGNOSTIC MAMMOGRAM BILATERAL W MIGUEL Schedule Routine, Read Routine (OP Routine) 03/22/2024 9:46 AM CASTING PLUG ASSEMBLER Malignant neoplasm of upper-outer quadrant of left breast in female, estrogen receptor positive (HCC) from Last 3 Months Results * US Breast Right Limited (03/22/2024 10:01 AM CASTING PLUG ASSEMBLER) Anatomical Region Laterality Modality Breast Right Ultrasound 03/22/2024 10:2 2 AM CASTING PLUG ASSEMBLER Impressions 03/22/2024 10:22 AM CASTING PLUG ASSEMBLER 1. Post breast conservation therapy changes within the LEFT breast without mammographic evidence of malignancy in the LEFT breast. 2. No suspicious mammographic or sonographic abnormality in the area of palpable concern in the RIGHT breast. No graphic evidence of malignancy within the RIGHT breast. OVERALL FINAL ASSESSMENT: BI-RADS Category 2: Benign. RECOMMENDATION: Annual diagnostic mammography is recommended. Dr. Armstrong discussed the above findings and recommendations with the patient, who expressed her understanding of the management plan. Electronically signed by: Papito Armstrong MD Narrative 03/22/2024 10:22 AM CASTING PLUG ASSEMBLER EXAMINATION: BILATERAL DIGITAL DIAGNOSTIC MAMMOGRAM INCLUDING CAD AND BILATERAL DIGITAL BREAST TOMOSYNTHESIS; RIGHT BREAST SONOGRAM HISTORY: 73-year-old woman with history of LEFT breast conservation therapy for invasive ductal carcinoma in 2023 presenting for 1st postsurgical follow-up. Of note, during physical examination, physician palpated an area of palpable concern in the RIGHT breast. COMPARISON: Multiple priors dating back to 2020, most recent diagnostic mammogram and ultrasound 04/15/2023 and screening mammogram 04/05/2023 TECHNIQUE: Full field digital mammographic views of BOTH breasts were performed, including computer aided detection (CAD) and BILATERAL digital breast tomosynthesis (DBT). Directed ultrasound evaluation of the RIGHT breast was performed by a trained suspension cord tier and by Dr. Armstrong. BREAST PARENCHYMAL COMPOSITION: There are scattered areas of fibroglandular density. MAMMOGRAM FINDINGS: Post breast conservation therapy changes within the LEFT breast. No new suspicious mass, distortion, or conservation. A triangle shaped skin marker is placed overlying the area of palpable concern in the RIGHT breast. No new suspicious mammographic abnormality underlying this palpable marker. No suspicious mass, distortion, or calcification within the RIGHT breast. SONOGRAM FINDINGS: Targeted ultrasound at the area of palpable concern in the RIGHT breast at 12:00, 7-8 cm from the nipple demonstrates benign breast tissue with scattered dense fibroglandular elements. Procedure Note Papito Armstrong MD - 03/22/2024 EXAMINATION: BILATERAL DIGITAL DIAGNOSTIC MAMMOGRAM INCLUDING CAD AND BILATERAL DIGITAL BREAST TOMOSYNTHESIS; RIGHT BREAST SONOGRAM HISTORY: 73-year-old woman with history of LEFT breast conservation therapy for invasive ductal carcinoma in 2023 presenting for 1st postsurgical follow-up. Of note, during physical examination, physician palpated an area of palpable concern in the RIGHT breast. COMPARISON: Multiple priors dating back to 2020, most recent diagnostic mammogram and ultrasound 04/15/2023 and screening mammogram 04/05/2023 TECHNIQUE: Full field digital mammographic views of BOTH breasts were performed, including computer aided detection (CAD) and BILATERAL digital breast tomosynthesis (DBT). Directed ultrasound evaluation of the RIGHT breast was performed by a trained suspension cord tier and by Dr. Armstrong. BREAST PARENCHYMAL COMPOSITION: There are scattered areas of fibroglandular density. MAMMOGRAM FINDINGS: Post breast conservation therapy changes within the LEFT breast. No new suspicious mass, distortion, or conservation. A triangle shaped skin marker is placed overlying the area of palpable concern in the RIGHT breast. No new suspicious mammographic abnormality underlying this palpable marker. No suspicious mass, distortion, or calcification within the RIGHT breast. SONOGRAM FINDINGS: Targeted ultrasound at the area of palpable concern in the RIGHT breast at 12:00, 7-8 cm from the nipple demonstrates benign breast tissue with scattered dense fibroglandular elements. IMPRESSION: 1. Post breast conservation therapy changes within the LEFT breast without mammographic evidence of malignancy in the LEFT breast. 2. No suspicious mammographic or sonographic abnormality in the area of palpable concern in the RIGHT breast. No graphic evidence of malignancy within the RIGHT breast. OVERALL FINAL ASSESSMENT: BI-RADS Category 2: Benign. RECOMMENDATION: Annual diagnostic mammography is recommended. Dr. Armstrong discussed the above findings and recommendations with the patient, who expressed her understanding of the management plan. Electronically signed by: Papito Armstrong MD Tamar Prakash MD PhD IMG MAMMO PROCEDURES Final Result * Diagnostic Mammogram Bilateral W Miguel (03/22/2024 9:46 AM CASTING PLUG ASSEMBLER) Anatomical Region Laterality Modality Breast Bilateral Mammography 03/22/2024 10:2 2 AM CASTING PLUG ASSEMBLER Impressions 03/22/2024 10:22 AM CASTING PLUG ASSEMBLER 1. Post breast conservation therapy changes within the LEFT breast without mammographic evidence of malignancy in the LEFT breast. 2. No suspicious mammographic or sonographic abnormality in the area of palpable concern in the RIGHT breast. No graphic evidence of malignancy within the RIGHT breast. OVERALL FINAL ASSESSMENT: BI-RADS Category 2: Benign. RECOMMENDATION: Annual diagnostic mammography is recommended. Dr. Armstrong discussed the above findings and recommendations with the patient, who expressed her understanding of the management plan. Electronically signed by: Papito Armstrong MD Narrative 03/22/2024 10:22 AM CASTING PLUG ASSEMBLER EXAMINATION: BILATERAL DIGITAL DIAGNOSTIC MAMMOGRAM INCLUDING CAD AND BILATERAL DIGITAL BREAST TOMOSYNTHESIS; RIGHT BREAST SONOGRAM HISTORY: 73-year-old woman with history of LEFT breast conservation therapy for invasive ductal carcinoma in 2023 presenting for 1st postsurgical follow-up. Of note, during physical examination, physician palpated an area of palpable concern in the RIGHT breast. COMPARISON: Multiple priors dating back to 2020, most recent diagnostic mammogram and ultrasound 04/15/2023 and screening mammogram 04/05/2023 TECHNIQUE: Full field digital mammographic views of BOTH breasts were performed, including computer aided detection (CAD) and BILATERAL digital breast tomosynthesis (DBT). Directed ultrasound evaluation of the RIGHT breast was performed by a trained suspension cord tier and by Dr. Armstrong. BREAST PARENCHYMAL COMPOSITION: There are scattered areas of fibroglandular density. MAMMOGRAM FINDINGS: Post breast conservation therapy changes within the LEFT breast. No new suspicious mass, distortion, or conservation. A triangle shaped skin marker is placed overlying the area of palpable concern in the RIGHT breast. No new suspicious mammographic abnormality underlying this palpable marker. No suspicious mass, distortion, or calcification within the RIGHT breast. SONOGRAM FINDINGS: Targeted ultrasound at the area of palpable concern in the RIGHT breast at 12:00, 7-8 cm from the nipple demonstrates benign breast tissue with scattered dense fibroglandular elements. Procedure Note Papito Armstrong MD - 03/22/2024 EXAMINATION: BILATERAL DIGITAL DIAGNOSTIC MAMMOGRAM INCLUDING CAD AND BILATERAL DIGITAL BREAST TOMOSYNTHESIS; RIGHT BREAST SONOGRAM HISTORY: 73-year-old woman with history of LEFT breast conservation therapy for invasive ductal carcinoma in 2023 presenting for 1st postsurgical follow-up. Of note, during physical examination, physician palpated an area of palpable concern in the RIGHT breast. COMPARISON: Multiple priors dating back to 2020, most recent diagnostic mammogram and ultrasound 04/15/2023 and screening mammogram 04/05/2023 TECHNIQUE: Full field digital mammographic views of BOTH breasts were performed, including computer aided detection (CAD) and BILATERAL digital breast tomosynthesis (DBT). Directed ultrasound evaluation of the RIGHT breast was performed by a trained suspension cord tier and by Dr. Armstrong. BREAST PARENCHYMAL COMPOSITION: There are scattered areas of fibroglandular density. MAMMOGRAM FINDINGS: Post breast conservation therapy changes within the LEFT breast. No new suspicious mass, distortion, or conservation. A triangle shaped skin marker is placed overlying the area of palpable concern in the RIGHT breast. No new suspicious mammographic abnormality underlying this palpable marker. No suspicious mass, distortion, or calcification within the RIGHT breast. SONOGRAM FINDINGS: Targeted ultrasound at the area of palpable concern in the RIGHT breast at 12:00, 7-8 cm from the nipple demonstrates benign breast tissue with scattered dense fibroglandular elements. IMPRESSION: 1. Post breast conservation therapy changes within the LEFT breast without mammographic evidence of malignancy in the LEFT breast. 2. No suspicious mammographic or sonographic abnormality in the area of palpable concern in the RIGHT breast. No graphic evidence of malignancy within the RIGHT breast. OVERALL FINAL ASSESSMENT: BI-RADS Category 2: Benign. RECOMMENDATION: Annual diagnostic mammography is recommended. Dr. Armstrong discussed the above findings and recommendations with the patient, who expressed her understanding of the management plan. Electronically signed by: Papito Armstrong MD Tamar Prakash MD PhD IMG MAMMO PROCEDURES Final Result from Last 3 Months Insurance MEDICARE [facility] MEDICARE SUPPLEMENT MEDICARE [employer] MEDICARE SUPPLEMENT Care Teams Icer Air Conditioning Relationship Specialty Start Date End Date Jayashree Alan MD [address] [place] [address] PCP - General Internal Medicine 04/18/23 Arpan Zamora MD [address] [place] [address] Consulting Physician Medical Oncology 08/19/23 Victoria Connolly MD PhD [id number] [facility] [address] [place] [address] Radiation Oncologist Radiation Oncology 10/10/23
--- OUTSIDE RECORDS SUMMARY | 2024-04-25 12:43 | XMS_ITS | Clinical Summary ---
Author Organization [facility] Address [address] [place] [address] Care Team Providers Care Electric Motor Tester Name Role Phone Unavailable Primary Care Provider Unavailabl e Social History Tobacco Use Types Packs/Day Years Used Date Smoking Tobacco: Never Assessed Comments Unknown Sex and Gender Information Value Date Recorded Sex Assigned at Not on file Legal Sex Female 9:43 AM CDT Gender Identity Not on file Sexual Orientation Not on file Plan of Treatment Health Maintenance Due Date Last Done Comments Colorectal Cancer Screening Colonoscopy (10 Years) 1950 Hepatitis C 1966 DTaP, Tdap and Td Vaccines ( 1 - Tdap) 11/11/1967 Zoster Vaccines (1 of 2) 1998 Annual Medicare Wellness Visit 2013 Dexa Scan (General) 2013 Pneumococcal Vaccine: 65+ Ye ars (1 of 1 - PCV) 2013 COVID-19 Vaccine (2023-2 5 season) 2023 RSV Immunization or 60+ Years (1 - 1-dose 75+ series) 11/11/2023 Influenza Adult (#1) 2023 Meningococcal B Vaccine Aged Out No l onger eligible based on patient's age to complete this topic Meningococcal Vaccine Aged Out No anika alejandra eligible based on patient's age to complete this topic RSV Immunizations Under 20 Months Aged Out No longer eligible based on patient's age to complete this topic Insurance MEDICARE [employer]
--- OUTSIDE RECORDS SUMMARY | 2024-04-25 12:43 | XMS_ITS | Encounter Summary ---
Author Organization [facility] Address [address] [place] [address] Phone Care Team Providers Care Pipeline Engineer Name Role Phone Jayashree Alan MD Primary Care Provider + [phone] Arpan Zamora MD Unavailable Victoria Connolly MD PhD Unavailable [phone] Encounter Details Date Type Department Care Team (Latest Contact Info) Description 03/02/2022 Orders Only [facility] Scanning, Provider Social History Tobacco Use Types Packs/Day Years Used Date Smoking Tobacco: Never Assessed Comments Unknown Sex and Gender Information Value Date Recorded Sex Assigned at Not on file Legal Sex Female 2:40 PM CONSTRUCTION SUPERINTENDENT Gender Identity Not on file Sexual Orientation Not on file documented as of this encounter Plan of Treatment Not on file documented as of this encounter Procedures Procedure Name Priority Date/Time Associated Diagnosis Comments SCAN - RADIOLOGY/IMAGING 03/02/2022 documented in this encounter Results * SCAN - RADIOLOGY/IMAGING (03/02/2022) Anatomical Region Laterality Modality Other us Provider Scanning Final Result documented in this encounter Visit Diagnoses Not on filedocumented in this encounter Care Teams Pipeline Engineer Relationship Specialty Start Date End Date Jayashree Alan MD [address] [place] [address] PCP - General Internal Medicine 04/18/23 Arpan Zamora MD [address] [place] [address] Consulting Physician Medical Oncology 08/19/23 Victoria Connolly MD PhD [id number] [facility] [address] [place] [address] Radiation Oncologist Radiation Oncology 10/10/23 documented as of this encounter
--- OUTSIDE RECORDS SUMMARY | 2024-04-25 12:43 | XMS_ITS | Clinical Summary ---
Author Organization [facility] Address [address] [place] [address] Care Team Providers Care Hospital Pharmacy Director Name Role Phone Jayashree Alan MD Primary Care Provider [phone] Source Comments [facility],non-owned Affiliates and Associated Physician Practices is amultiple site organization consisting of ambulatory clinics and hospital sitesin [place], [place], [place] and [place]. This disclosure is being madepursuant to the Care Everywhere program and may not contain all information available regarding this patient. Last updated 17.[facility] [employer] Allergies Active Allergy Reactions Criticality Noted Date Comments Sulfa Drugs 04/28/2016 Medications * Be aware that medications may not be up to date on this document. Alwaysverify current medications with the patient. Medication Sig Dispensed Refills Start Date End Date Status Pseudoephedrine HCl (SUDAFED CONGESTION PO) Active Fluticasone Propionate (FLONASE NA) Active Social History Tobacco Use Types Packs/Day Years Used Date Smoking Tobacco: Never Sex and Gender Information Value Date Recorded Sex Assigned at Not on file Gender Identity Not on file Sexual Orientation Not on file Last Filed Vital Signs Vital Sign Reading Time Taken Comments Blood Pressure 142/98 04/28/2016 9:54 AM FOOD SERVICE DRIVER Pulse 88 04/28/2016 9:54 AM FOOD SERVICE DRIVER Temperature 36.8 C (98.3 F) 04/28/2016 9:54 AM FOOD SERVICE DRIVER Respiratory Rate 16 04/28/2016 9:54 AM FOOD SERVICE DRIVER Oxygen Saturation 96% 04/28/2016 9:54 AM FOOD SERVICE DRIVER Inhaled Oxygen Concentration - - Weight 90.7 kg (200 lb) 04/28/2016 9:54 AM FOOD SERVICE DRIVER Height 166.4 cm (5' 5.5 ) 04/28/2016 9:54 AM FOOD SERVICE DRIVER Body Mass Index 32.78 04/28/2016 9:54 AM FOOD SERVICE DRIVER Plan of Treatment Health Maintenance Due Date Last Done Comments BONE DENSITY TESTING 1950 COLOGUARD (AGES 45-75) - COL ON CA SCREENING 1950 COLON MONITORING 1948 COLONOSCOPY - COLON CA SCREENING 1948 CT COLONOGRAPHY - COLON CA SCREENING 1950 Colorectal Cancer Screening 1950 FIT - COLON CA SCREENING 1950 FLEX SIG - COLON CA SCREENING 1950 LIPID TESTING 1950 MAMMOGRAM 1950 MEDICARE AWV 12 MONTHS 1950 HEPATITIS C SCREENING 11/06/1966 DTAP/TDAP/TD VACCINES (1 - Tdap) 11/11/1967 PNEUMOCOCCAL VACCINE 50+ (1 of 1 - PCV) 1998 ZOSTER VACCINE (1 of 2) 1998 COVID-19 VACCINE (1 - 2023-2 5 season) 2023 INFLUENZA VACCINE (#1) 2023 Respiratory Syncytial Virus (RSV) Vaccine Pt: or over 60 yrs (1 - 1-dose 75+ series) 11/11/2023 DEPRESSION SCREENING 03/07/2024 HEPATITIS B VACCINE Aged Out No longe r eligible based on patient's age to complete this topic HIB VACCINE Aged Out No longer eligi ble based on patient's age to complete this topic HPV VACCINE Aged Out No longer eligi ble based on patient's age to complete this topic MENINGOCOCCAL (Group B) VACCINE Aged Out No longer eligible based on patient's age to complete this topic MENINGOCOCCAL VACCINE Aged Out No anika alejandra eligible based on patient's age to complete this topic Care Teams Hospital Pharmacy Director Relationship Specialty Start Date End Date Jayashree Alan MD PCP - General Internal Medicine 04/28/16
--- OUTSIDE RECORDS SUMMARY | 2024-04-25 12:43 | XMS_ITS | Patient Health Summary ---
Author Organization [facility] Address [facility] [facility] [place] [address] Care Team Providers Care Director Of Corporate Responsibility Name Role Phone Jayashree Alan MD Primary Care Provider Note from [facility],non-owned Affiliates and Associated Physician Practices is amultiple site organization consisting of ambulatory clinics and hospital sitesin [place], [place], [place] and [place]. This disclosure is being madepursuant to the Care Everywhere program and may not contain all information available regarding this patient. Last updated 17.[facility] Allergies * Sulfa Drugs Medications * Be aware that medications may not be up to date on this document. Alwaysverify current medications with the patient. * Pseudoephedrine HCl (SUDAFED CONGESTION PO) * Fluticasone Propionate (FLONASE NA) Social History Tobacco Use Types Packs/Day Years Used Date Smoking Tobacco: Never Sex and Gender Information Value Date Recorded Sex Assigned at Not on file Gender Identity Not on file Sexual Orientation Not on file Last Filed Vital Signs Vital Sign Reading Time Taken Comments Blood Pressure 142/98 04/28/2016 9:54 AM TALENT SCOUT Pulse 88 04/28/2016 9:54 AM TALENT SCOUT Temperature 36.8 C (98.3 F) 04/28/2016 9:54 AM TALENT SCOUT Respiratory Rate 16 04/28/2016 9:54 AM TALENT SCOUT Oxygen Saturation 96% 04/28/2016 9:54 AM TALENT SCOUT Inhaled Oxygen Concentration - - Weight 90.7 kg (200 lb) 04/28/2016 9:54 AM TALENT SCOUT Height 166.4 cm (5' 5.5 ) 04/28/2016 9:54 AM TALENT SCOUT Body Mass Index 32.78 04/28/2016 9:54 AM TALENT SCOUT Care Teams Director Of Corporate Responsibility Relationship Specialty Start Date End Date Jayashree Alan MD PCP - General Internal Medicine 04/28/16
--- OUTSIDE RECORDS SUMMARY | 2024-04-25 12:43 | XMS_ITS | Referral Summary ---
Author Organization [facility] Address [address] [place] [address] Care Team Providers Care Sumatra Opener Name Role Phone Jayashree Alan MD Primary Care Provider [phone] Source Comments [facility],non-owned Affiliates and Associated Physician Practices is amultiple site organization consisting of ambulatory clinics and hospital sitesin [place], [place], [place] and [place]. This disclosure is being madepursuant to the Care Everywhere program and may not contain all information available regarding this patient. Last updated 17.[facility] [employer] Allergies Active Allergy Reactions Criticality Noted Date [...] Comments Blood Pressure 142/98 04/28/2016 9:54 AM BELL VALET Pulse 88 04/28/2016 9:54 AM BELL VALET Temperature 36.8 C (98.3 F) 04/28/2016 9:54 AM BELL VALET Respiratory Rate 16 04/28/2016 9:54 AM BELL VALET Oxygen Saturation 96% 04/28/2016 9:54 AM BELL VALET Inhaled Oxygen Concentration - - Weight 90.7 kg (200 lb) 04/28/2016 9:54 AM BELL VALET Height 166.4 cm (5' 5.5 ) 04/28/2016 9:54 AM BELL VALET Body Mass Index 32.78 04/28/2016 9:54 AM BELL VALET Plan of Treatment Not on file Care Teams Sumatra Opener Relationship Specialty Start Date End Date Jayashree Alan MD PCP - General Internal Medicine 04/28/16
--- OUTSIDE RECORDS SUMMARY | 2024-04-25 12:43 | XMS_ITS | Referral Summary ---
Author Organization [facility] [address] [facility] Address [address] [place] [address] Care Team Providers Care Supervisor Looping Name Role Phone Jayashree Alan MD Primary Care Provider [phone] Arpan Zamora MD Unavailable Victoria Connolly MD PhD Unavailable [phone] Encounters Date Type Department Care Team Description 04/11/2024 9:30 AM SAMPLE HAND Office Visit 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; Malignant neoplasm of upper-outer quadrant of left breast in female, estrogen receptor positive (HCC) 03/22/2024 9:45 AM SAMPLE HAND - 03/22/2024 11:59 PM SAMPLE HAND Hospital Encounter [facility] - Breast Imaging [address] [place] [address] Malignant neoplasm of upper-outer quadrant of left breast in female, estrogen receptor positive (HCC) Discharge Disposition: Discharge to home or self care 03/22/2024 8:17 AM SAMPLE HAND - 03/22/2024 11:59 PM SAMPLE HAND Hospital Encounter [facility] - Breast Imaging [address] [place] [address] Malignant neoplasm of upper-outer quadrant of left breast in female, estrogen receptor positive (HCC) Discharge Disposition: Discharge to home or self care 03/22/2024 8:30 AM SAMPLE HAND Office Visit [facility] Surgery [address] [place] [address] [place] [phone] Tamar Prakash MD PhD Encounter for follow-up surveillance of breast cancer (Primary Dx); History of partial mastectomy of left breast; Malignant neoplasm of upper-outer quadrant of left breast in female, estrogen receptor positive (HCC) from Last 3 Months Allergies Active Allergy Reactions Criticality Noted Date [...] Cancer Staging:Clinical:Stage IB(cT1c, cN1, cM0, G2, ER+, NJ+, HER2-) - Unsigned Abnormal mammogram 07/08/2023 Mass of left breast 05/23/2023 Abnormal mammogram of left breast 05/23/2023 Immunizations Immunization Administration Dates Next Due Influenza, Quad, Adjuvantated, Intramuscular 05/2022,01/13/2022 Influenza, Quadrivalent, Spl it, Preservative Free, Intramuscular 11/07/2019,03/06/2019 Pneumococcal Conjugate PCV 13 09/28/2017 Pneumococcal Polysaccharide PPV23 03/24/2018 Tdap 09/01/2022 Social History Tobacco Use Types Packs/Day Years [...] on file Legal Sex Female 2:40 PM SAMPLE HAND Gender Identity Not on file Sexual Orientation Not on file Last Filed Vital Signs Vital Sign Reading Time Taken Comments Blood Pressure 159/130 04/11/2024 9:26 AM SAMPLE HAND Pulse 62 04/11/2024 9:26 AM SAMPLE HAND Temperature 36.9 C (98.5 F) 04/11/2024 9:26 AM SAMPLE HAND Respiratory Rate 16 04/11/2024 9:26 AM SAMPLE HAND Oxygen Saturation 96% 04/11/2024 9:26 AM SAMPLE HAND Inhaled Oxygen Concentration - - Weight 101.6 kg (224 lb) 04/11/2024 9:26 AM SAMPLE HAND Height 165.1 cm (5' 5 ) 03/22/2024 8:36 AM SAMPLE HAND Body Mass Index 37.28 03/22/2024 8:36 AM SAMPLE HAND Plan of Treatment Not on file Medical Devices Implanted Type Area Sander Portable Machine Device Identifier Shelf Expiration Date Model / Serial / Lot Bard Peripheral Vascular Ultraclip Bard 17ga 10cm 2 Trigger Permanent Ultrasound [id number] - [id number] Implanted:Qty: 1 on 05/25/2023 at [facility] Left: Breast Bard Peripheral Vascular [id number] / / [employer] [place] 20ga 7.5cm 2 Part Stabilizer Repositionable Depth Uday [id number] - [id number] Implanted:Qty: 1 on 08/05/2023 at [facility] [employer] [id number] 12/31/2027 [id number] / / [id number] Procedures Procedure Name Priority Date/Time Associated Diagnosis Comments US BREAST RIGHT LIMITED Schedule Routine, Read Routine (OP Routine) 03/22/2024 10:01 AM SAMPLE HAND Malignant neoplasm of upper-outer quadrant of left breast in female, estrogen receptor positive (HCC) DIAGNOSTIC MAMMOGRAM BILATERAL W MIGUEL Schedule Routine, Read Routine (OP Routine) 03/22/2024 9:46 AM SAMPLE HAND Malignant neoplasm of upper-outer quadrant of left breast in female, estrogen receptor positive (HCC) from Last 3 Months Results * US Breast Right Limited (03/22/2024 10:01 AM SAMPLE HAND) Anatomical Region Laterality Modality Breast Right Ultrasound 03/22/2024 10:2 2 AM SAMPLE HAND Impressions 03/22/2024 10:22 AM SAMPLE HAND 1. Post breast conservation therapy changes within [...] Papito Armstrong MD Narrative 03/22/2024 10:22 AM SAMPLE HAND EXAMINATION: BILATERAL DIGITAL DIAGNOSTIC MAMMOGRAM INCLUDING CAD [...] RIGHT breast was performed by a trained rooming house operator and by Dr. Armstrong. BREAST PARENCHYMAL COMPOSITION: [...] RIGHT breast was performed by a trained rooming house operator and by Dr. Armstrong. BREAST PARENCHYMAL COMPOSITION: [...] Mammogram Bilateral W Miguel (03/22/2024 9:46 AM SAMPLE HAND) Anatomical Region Laterality Modality Breast Bilateral Mammography 03/22/2024 10:2 2 AM SAMPLE HAND Impressions 03/22/2024 10:22 AM SAMPLE HAND 1. Post breast conservation therapy changes within [...] Papito Armstrong MD Narrative 03/22/2024 10:22 AM SAMPLE HAND EXAMINATION: BILATERAL DIGITAL DIAGNOSTIC MAMMOGRAM INCLUDING CAD [...] RIGHT breast was performed by a trained rooming house operator and by Dr. Armstrong. BREAST PARENCHYMAL COMPOSITION: [...] RIGHT breast was performed by a trained rooming house operator and by Dr. Armstrong. BREAST PARENCHYMAL COMPOSITION: [...] Result from Last 3 Months Insurance MEDICARE [facility] MEDICARE SUPPLEMENT MEDICARE [employer] MEDICARE SUPPLEMENT Care Teams Supervisor Looping Relationship Specialty Start Date End Date Jayashree Alan MD [address] [place] [address] PCP - General Internal Medicine 04/18/23 Arpan Zamora MD [address] [place] [address] Consulting Physician Medical Oncology 08/19/23 Victoria Connolly MD PhD [address] [facility] [address] [place] [address] Radiation Oncologist Radiation Oncology 8/5/24
--- OUTSIDE RECORDS SUMMARY | 2024-04-25 12:43 | XMS_ITS ---
Author Organization [place] [address] [facility] Address [address] [place] [address] Care Team Providers Care Research Neuropsychologist Name Role Phone Jayashree Alan MD Primary Care Provider [phone] Arpan Zamora MD Unavailable Victoria Connolly MD PhD Unavailable [phone] Active Problems Problem Noted Date Diagnosed Date Malignant neoplasm of centra l portion of left breast in female, estrogen receptor positive 08/05/2023 Cancer Staging:Clinical:Stage IB(cT1c, cN1, cM0, G2, ER+, RI+, HER2-) - Unsigned Abnormal mammogram 07/08/2023 Mass of left breast 05/23/2023 Abnormal mammogram of left breast 05/23/2023 Current Treatment and Therapy Plans No current plan information found. Past Treatment and Therapy Plans No past plan information found. Radiation Treatments * Course [id number]/28/2023 - 10/04/2023 Treatment Period Energy Fraction Dose Fractions Total Dose Plans Planned LT BREAST_PRN 09/28/2023 - 10/04/2023 520 5 / 2,600 Reference Points Delivered LT BREAST_2600 09/28/2023 - 10/04/2023 2,600
[2024-04-25 14:24] LABS: Alanine Aminotransferase 28 U/L (14-59); Alkaline Phosphatase 120 U/L (46-116); Anion Gap 6 mmol/L (4-12); Aspartate Amino Transferase 19 U/L (15-37); Bilirubin,Total 0.9 mg/dL (0.00-1.00); Blood Urea Nitrogen 13 mg/dL (7-18); Calcium 10.7 mg/dL (8.5-10.1); Carbon Dioxide 30 mmol/L (21-32); Chloride 106 mmol/L (98-108); Estimated Glomerular Filt Rate 45; Glucose 109 mg/dL (70-99); Osmolality Calculated 295 mOsm/kg (285-295); Potassium 5.1 mmol/L (3.5-5.1); Sodium 142 mmol/L (136-145); Total Protein 6.6 g/dL (6.4-8.2)
== END 2024-04-25 12:38 | disposition home or self-care (01) ==
PROVIDERS: PCP Internal Medicine
DX: E86.0 Dehydration (principal); E83.52 Hypercalcemia; Z78.0 Asymptomatic menopausal state; M85.88 Other specified disorders of bone density and structure, other site
CPT/HCPCS: 36415; 77080; 80053

== ENCOUNTER 2024-06-21 12:54 | Outpatient (CLI) | payer MEDICARE, SELFPAY ==
--- OUTSIDE RECORDS SUMMARY | 2024-06-21 13:11 | XMS_ITS | Clinical Summary ---
Author Organization [place] [address] [facility] Address [address] [place] [address] Care Team Providers Care Rehab Aid Name Role Phone Jayashree Alan MD Primary Care Provider + [phone] Arpan Zamora MD Unavailable Victoria Connolly MD PhD Unavailable [phone] Allergies Active Allergy Reactions Criticality Noted Date [...] 30 tablet 11 04/11/19 25 026 Active fluconazole (DIFLUCAN) 150 mg tablet Take 1 now and repeat in 72 hours 2 tablet 06/05/19 25 Active Active Problems Problem Noted Date Diagnosed Date Malignant neoplasm of centra l portion of left breast in female, estrogen receptor positive 08/05/2023 Cancer Staging:Clinical:Stage IB(cT1c, cN1, cM0, G2, ER+, NJ+, HER2-) - Unsigned Abnormal mammogram 07/08/2023 Mass of left breast 05/23/2023 Abnormal mammogram of left breast 05/23/2023 Encounters Date Type Department Care Team Description 06/04/2024 8:40 AM CDT Office Visit [facility] Advanced Medicine Radiation Oncology [facility] [place] [address] Gertrude Marquez PA Malignant neoplasm of upper-outer quadrant of left breast in female, estrogen receptor positive (HCC) 04/26/2024 Orders Only [facility] Oncology [address] [place] [address] Arpan Zamora MD 04/11/2024 9:30 AM TELEPHONE MAINTAINER Office Visit [facility] Oncology [address] [facility] [address] [place] [phone] Arpan Zamora MD Malignant neoplasm of central portion of left breast in female, estrogen receptor positive (HCC) (Primary Dx); 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; Malignant neoplasm of upper-outer quadrant of left breast in female, estrogen receptor positive (HCC) from Last 3 Months Immunizations Immunization Administration [...] on file Legal Sex Female 2:40 PM TELEPHONE MAINTAINER Gender Identity Not on file Sexual Orientation Not on file Obstetrics History Last Filed Vital Signs Vital Sign Reading Time Taken Comments Blood Pressure 159/130 04/11/2024 9:26 AM TELEPHONE MAINTAINER Pulse 62 04/11/2024 9:26 AM TELEPHONE MAINTAINER Temperature 36.9 C (98.5 F) 04/11/2024 9:26 AM TELEPHONE MAINTAINER Respiratory Rate 16 04/11/2024 9:26 AM TELEPHONE MAINTAINER Oxygen Saturation 96% 04/11/2024 9:26 AM TELEPHONE MAINTAINER Inhaled Oxygen Concentration - - Weight 99.8 kg (220 lb 1.6 oz) 06/04/2024 8:35 A M CDT Height 165.1 cm (5' 5 ) 03/22/2024 8:36 AM TELEPHONE MAINTAINER Body Mass Index 36.63 03/22/2024 8:36 AM TELEPHONE MAINTAINER Plan of Treatment Health Maintenance Due Date Last Done Comments Colon Cancer Screening-Colonoscopy 1950 Depression Screening 1950 Hepatitis C Screening 1950 Hepatitis B Screening 1966 Zoster Vaccine (1 of 2) 11/11/1967 Well Visit 65+ 2013 Covid-19 Vaccine (2023- 5 season) 2023 12/07/2022, 01/13/2022, 07/24/2021, Additional history exists Fall Risk Assessment 09/11/2024 09/12/2023, 08/05/19 Influenza Vaccine (Season Ended) 2024 12/07/2022, 01/13/2022, 11/07/2019, Additional history exists Osteoporosis Screening-Bone Density Scan 04/25/2026 04/25/2024 DTaP/Tdap/Td Vaccine (2 - Td or Tdap) 09/01/2032 09/01/2022 Pneumococcal vaccine 65+ Completed 03/24/2018, 09/05 Breast Cancer Screening-Mammogram Discontinued 025 Medical Devices Implanted Type Area Tail Dogger Device Identifier Shelf Expiration Date Model / Serial / Lot Bard Peripheral Vascular Ultraclip Bard 17ga 10cm 2 Trigger Permanent Ultrasound [id number] - [id number] Implanted:Qty: 1 on 05/25/2023 at [facility] Left: Breast Bard Peripheral Vascular [id number] / / [employer] [place] 20ga 7.5cm 2 Part Stabilizer Repositionable Depth Uday [id number] - [id number] Implanted:Qty: 1 on 08/05/2023 at [facility] [employer] [id number] 12/31/2027 [id number] / / [id number] Procedures Procedure Name Priority Date/Time Associated Diagnosis Comments DEXA AXIAL SKELETON BONE DENSITY 1 OR MORE SITES Schedule Routine, Read Routine (OP Routine) 04/25/2024 2:16 PM TELEPHONE MAINTAINER DIAGNOSTIC MAMMOGRAM BILATERAL W MIGUEL Schedule Routine, Read Routine (OP Routine) 03/22/2024 9:46 AM TELEPHONE MAINTAINER Malignant neoplasm of upper-outer quadrant of left breast in female, estrogen receptor positive (HCC) from Last 3 Months or Most Recently Relevant to Health Maintenance Results * Dexa Axial Skeleton Bone Density 1 or 2 Site (04/25/2024 2:16 PM TELEPHONE MAINTAINER) Anatomical Region Laterality Modality Body N/A Radiographic Siobhan ging us Arpan Zamora MD IMG DXA PROCEDURE S Final Result * Diagnostic Mammogram Bilateral W Miguel (03/22/2024 9:46 AM TELEPHONE MAINTAINER) Anatomical Region Laterality Modality Breast Bilateral Mammography 03/22/2024 10:2 2 AM TELEPHONE MAINTAINER Impressions 03/22/2024 10:22 AM TELEPHONE MAINTAINER 1. Post breast conservation therapy changes within [...] Papito Armstrong MD Narrative 03/22/2024 10:22 AM TELEPHONE MAINTAINER EXAMINATION: BILATERAL DIGITAL DIAGNOSTIC MAMMOGRAM INCLUDING CAD [...] RIGHT breast was performed by a trained mortgage loan coordinator and by Dr. Armstrong. BREAST PARENCHYMAL COMPOSITION: [...] RIGHT breast was performed by a trained mortgage loan coordinator and by Dr. Armstrong. BREAST PARENCHYMAL COMPOSITION: [...] PROCEDURES Final Result from Last 3 Months or Most Recently Relevant to Health Maintenance Insurance MEDICARE [facility] MEDICARE SUPPLEMENT MEDICARE [facility] MEDICARE SUPPLEMENT Care Teams Rehab Aid Relationship Specialty Start Date End Date Jayashree Alan MD [address] [place] [address] PCP - General Internal Medicine 04/18/23 Arpan Zamora MD [address] [place] [address] Consulting Physician Medical Oncology 08/19/23 Victoria Connolly MD PhD [address] [facility] [address] [place] [address] Radiation Oncologist Radiation Oncology 10/10/23
--- OUTSIDE RECORDS SUMMARY | 2024-06-21 13:11 | XMS_ITS | Referral Summary ---
Author Organization [place] [id number] [facility] Address [address] [place] [address] Care Team Providers Care Pillowcase Turner Name Role Phone Jayashree Alan MD Primary Care Provider + [phone] Arpan Zamora MD Unavailable Victoria Connolly MD PhD Unavailable [phone] Encounters Date Type Department Care Team Description 06/04/2024 8:40 AM CDT Office Visit [facility] Advanced Medicine Radiation Oncology [address] [facility] [place] [address] Gertrude Marquez PA Malignant neoplasm of upper-outer quadrant of left breast in female, estrogen receptor positive (HCC) 04/26/2024 Orders Only [facility] Oncology [address] [place] [address] Arpan Zamora MD 04/11/2024 9:30 AM REAL ESTATE BROKER ASSOCIATE Office Visit [facility] Oncology [address] [facility] Floor [address] [place] [id number] Arpan Zamora MD Malignant neoplasm of central portion of left breast in female, estrogen receptor positive (HCC) (Primary Dx); 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; Malignant neoplasm [...] Cancer Staging:Clinical:Stage IB(cT1c, cN1, cM0, G2, ER+, KS+, HER2-) - Unsigned Abnormal mammogram 07/08/2023 Mass [...] on file Legal Sex Female 2:40 PM REAL ESTATE BROKER ASSOCIATE Gender Identity Not on file Sexual Orientation Not on file Last Filed Vital Signs Vital Sign Reading Time Taken Comments Blood Pressure 159/130 04/11/2024 9:26 AM REAL ESTATE BROKER ASSOCIATE Pulse 62 04/11/2024 9:26 AM REAL ESTATE BROKER ASSOCIATE Temperature 36.9 C (98.5 F) 04/11/2024 9:26 AM REAL ESTATE BROKER ASSOCIATE Respiratory Rate 16 04/11/2024 9:26 AM REAL ESTATE BROKER ASSOCIATE Oxygen Saturation 96% 04/11/2024 9:26 AM REAL ESTATE BROKER ASSOCIATE Inhaled Oxygen Concentration - - Weight 99.8 kg (220 lb 1.6 oz) 06/04/2024 8:35 A M CDT Height 165.1 cm (5' 5 ) 03/22/2024 8:36 AM REAL ESTATE BROKER ASSOCIATE Body Mass Index 36.63 03/22/2024 8:36 AM REAL ESTATE BROKER ASSOCIATE Plan of Treatment Not on file Medical Devices Implanted Type Area Lead Performance Support Analyst Device Identifier Shelf Expiration Date Model / Serial / Lot Bard Peripheral Vascular Ultraclip Bard 17ga 10cm 2 Trigger Permanent Ultrasound [id number] - [id number] Implanted:Qty: 1 on 05/25/2023 at [facility] Left: Breast Bard Peripheral Vascular [id number] / / Hotel [employer] [place] 20ga 7.5cm 2 Part Stabilizer Repositionable Depth Uday [id number] - [id number] Implanted:Qty: 1 on 08/05/2023 at [facility] [employer] [id number] 12/31/2027 [id number] / / [id number] Procedures Procedure Name Priority Date/Time Associated Diagnosis Comments DEXA AXIAL SKELETON BONE DENSITY 1 OR MORE SITES Schedule Routine, Read Routine (OP Routine) 04/25/2024 2:16 PM REAL ESTATE BROKER ASSOCIATE DIAGNOSTIC MAMMOGRAM BILATERAL W MIGUEL Schedule Routine, Read Routine (OP Routine) 03/22/2024 9:46 AM REAL ESTATE BROKER ASSOCIATE Malignant neoplasm of upper-outer quadrant of left breast in female, estrogen receptor positive (HCC) from Last 3 Months or Most Recently Relevant to Health Maintenance Results * Dexa Axial Skeleton Bone Density 1 or 2 Site (04/25/2024 2:16 PM REAL ESTATE BROKER ASSOCIATE) Anatomical Region Laterality Modality Body N/A Radiographic Siobhan ging us Arpan Zamora MD IMG DXA PROCEDURE S Final Result * Diagnostic Mammogram Bilateral W Miguel (03/22/2024 9:46 AM REAL ESTATE BROKER ASSOCIATE) Anatomical Region Laterality Modality Breast Bilateral Mammography 03/22/2024 10:2 2 AM REAL ESTATE BROKER ASSOCIATE Impressions 03/22/2024 10:22 AM REAL ESTATE BROKER ASSOCIATE 1. Post breast conservation therapy changes within [...] Papito Armstrong MD Narrative 03/22/2024 10:22 AM REAL ESTATE BROKER ASSOCIATE EXAMINATION: BILATERAL DIGITAL DIAGNOSTIC MAMMOGRAM INCLUDING CAD [...] RIGHT breast was performed by a trained continuous mining machine lode miner and by Dr. Armstrong. BREAST PARENCHYMAL COMPOSITION: [...] RIGHT breast was performed by a trained continuous mining machine lode miner and by Dr. Armstrong. BREAST PARENCHYMAL COMPOSITION: [...] Recently Relevant to Health Maintenance Insurance MEDICARE [facility] MEDICARE SUPPLEMENT MEDICARE [employer] MEDICARE SUPPLEMENT Care Teams Pillowcase Turner Relationship Specialty Start Date End Date Jayashree Alan MD [address] [place] [address] PCP - General Internal Medicine 04/18/23 Arpan Zamora MD [address] [place] [address] Consulting Physician Medical Oncology 08/19/23 Victoria Connolly MD PhD [address] [facility] [address] [place] [address] Radiation Oncologist Radiation Oncology 10/10/23
--- OUTSIDE RECORDS SUMMARY | 2024-06-21 13:11 | XMS_ITS ---
Author Organization [place] [address] [facility] Address [address] [place] [address] Care Team Providers Care Core Drilling Supervisor Name Role Phone Jayashree Alan MD Primary Care Provider + [phone] Arpan Zamora MD Unavailable Victoria Connolly MD PhD Unavailable [phone] Active Problems Problem Noted Date Diagnosed Date Malignant neoplasm of centra l portion of left breast in female, estrogen receptor positive 08/05/2023 Cancer Staging:Clinical:Stage IB(cT1c, cN1, cM0, G2, ER+, SD+, HER2-) - Unsigned Abnormal mammogram 07/08/2023 Mass [...]
--- OUTSIDE RECORDS SUMMARY | 2024-06-21 13:11 | XMS_ITS | Clinical Summary ---
Author Organization [facility] Address [address] [facility] [place] [address] Care Team Providers Care Mine Captain Name Role Phone Jayashree Alan MD Primary Care Provider Source Comments [facility],non-owned Affiliates and Associated Physician Practices is amultiple site organization consisting of ambulatory clinics and hospital sitesin [place], [place]. This disclosure is being madepursuant to the Care Everywhere program and may not contain all information available regarding this patient. Last updated 17.[facility] [employer] Allergies Active Allergy Reactions Criticality Noted Date Comments Sulfa Drugs 04/28/2016 Medications * Be aware that medications may not be up to date on this document. Alwaysverify current medications with the patient. Pseudoephedrine HCl (SUDAFED CONGESTION PO) Activ e Fluticasone Propionate (FLONASE NA) Active Social History Tobacco Use Types Packs/Day Years Used Date Smoking Tobacco: Never Comments Unknown Sex and Gender Information Value Date Recorded Sex Assigned at Not on file Legal Sex Female 9:37 AM STABLE HAND Gender Identity Not on file Sexual Orientation Not on file Last Filed Vital Signs Vital Sign Reading Time Taken Comments Blood Pressure 142/98 04/28/2016 9:54 AM STABLE HAND Pulse 88 04/28/2016 9:54 AM STABLE HAND Temperature 36.8 C (98.3 F) 04/28/2016 9:54 AM STABLE HAND Respiratory Rate 16 04/28/2016 9:54 AM STABLE HAND Oxygen Saturation 96% 04/28/2016 9:54 AM STABLE HAND Inhaled Oxygen Concentration - - Weight 90.7 kg (200 lb) 04/28/2016 9:54 AM STABLE HAND Height 166.4 cm (5' 5.5 ) 04/28/2016 9:54 AM STABLE HAND Body Mass Index 32.78 04/28/2016 9:54 AM STABLE HAND Plan of Treatment Health Maintenance Due Date [...] VACCINE (1 of 2) 1998 COVID-19 VACCINE ( - 2023-2 5 season) 2023 Respiratory Syncytial Virus (RSV) Vaccine Pt: or over 60 yrs (1 - 1-dose 75+ series) 11/11/2023 DEPRESSION SCREENING 03/07/2024 INFLUENZA VACCINE (Season Ended) 2024 HEPATITIS B VACCINE Aged Out No longe r eligible based on patient's age to complete this topic HIB VACCINE Aged Out No longer eligi ble based on patient's age to complete this topic HPV VACCINE Aged Out No longer eligi ble based on patient's age to complete this topic MENINGOCOCCAL (Group B) VACC INE SHARED DECISION-MAKING Aged Out No longer eligibl e based on patient's age to complete this topic MENINGOCOCCAL GROUPS A/C/Y/W VACCINE Aged Out No longer eligible b ased on patient's age to complete this topic Insurance [employer] [place] MEDICARE MEDICARE Care Teams Mine Captain Relationship Specialty Start Date End Date Jayashree Alan MD PCP - General Internal Medicine 04/28/16
--- OUTSIDE RECORDS SUMMARY | 2024-06-21 13:11 | XMS_ITS | Clinical Summary ---
Author Organization [facility] Address [address] [place] [address] Care Team Providers Care Machine Records Units Supervisor Name Role Phone Unavailable Primary Care Provider [...] 2013 Dexa Scan (General) 2013 Pneumococcal Vaccine: 50+ Ye ars (1 of 1 - PCV) 2013 COVID-19 Vaccine (2023-2 5 season) 2023 RSV Immunization or 60+ Years (1 - 1-dose 75+ series) 11/11/2023 Meningococcal B Vaccine Aged Out No l onger eligible based on patient's age to complete this topic Meningococcal Vaccine Aged Out No anika alejandra eligible based on patient's age to complete this topic RSV Immunizations Under 20 Months Aged Out No longer eligible based on patient's age to complete this topic Insurance MEDICARE [employer]
--- OUTSIDE RECORDS SUMMARY | 2024-06-21 13:11 | XMS_ITS | Encounter Summary ---
Author Organization [facility] Address [address] [place] [address] Phone Care Team Providers Care Public Safety Police Name Role Phone Jayashree Alan MD Primary Care Provider + [phone] Arpan Zamora MD Unavailable Victoria Connolly MD PhD Unavailable [phone] Encounter Details Date Type Department Care Team (Latest Contact Info) Description 03/02/2022 Orders Only [facility] Scanning, Provider Social History Tobacco Use Types Packs/Day Years Used Date Smoking Tobacco: Never Assessed Comments Unknown Sex and Gender Information Value Date Recorded Sex Assigned at Not on file Legal Sex Female 2:40 PM TEACHERS' ASSISTANT Gender Identity Not on file Sexual Orientation [...] on filedocumented in this encounter Care Teams Public Safety Police Relationship Specialty Start Date End Date Jayashree Alan MD [address] [place] [address] PCP - General Internal Medicine 04/18/23 Arpan Zamora MD [address] [place] [address] Consulting Physician Medical Oncology 08/19/23 Victoria Connolly MD PhD [address] [facility] [address] [place] [address] Radiation Oncologist Radiation Oncology 10/10/23 documented as of this encounter
[2024-06-21 13:27] LABS: Hematocrit 43.9 % (35.0-42.0); Hemoglobin 14.5 g/dL (11.7-13.8); Mean Corpuscular Hemoglobin 29.4 pg (27.0-31.0); Mean Corpuscular Volume 88.9 fL (78.0-102.0); Mean Platelet Volume 11.5 fl (9.2-11.8); Platelet Count Result 163 K/mm3 (150-420); Red Blood Count 4.94 M/mm3 (4.20-5.40); Red Cell Distribution Width 13.2 % (11.6-14.4); White Blood Count 5.7 K/mm3 (4.8-10.8)
[2024-06-21 13:32] LABS: Add Urine Microscopic? YES; Appearance Urine Clear (Clear); Bilirubin Urine Negative (Negative); Blood Urine Negative (Negative); Color Urine Light Yellow (Yellow); Glucose Urine UA Negative (Negative); Ketones Urine Negative (Negative); Leukocyte Esterase Ur 2+ (Negative); Nitrate Urine Negative (Negative); Protein Urine Negative (Negative); Specific Grav Ur 1.015 (1.010-1.020); Urobilinogen Urine 0.2 mg/dL (0.2-1.0); pH Urine 6.5 (5.0-8.0)
[2024-06-21 13:46] LABS: Creatinine Urine 111.65 mg/dL (40-278); Total Protein Urine Random 21.9 mg/dL (0.0-11.9)
[2024-06-21 13:54] LABS: Bacteria Urine 1+ /hpf; RBC Urine 0-2 /hpf (0-2); Squamous Epithelial Cell Urine Few /hpf (Few); WBC Urine 16-20 /hpf (0-3)
[2024-06-21 14:17] LABS: Anion Gap 9 mmol/L (4-12); Blood Urea Nitrogen 18 mg/dL (7-18); Carbon Dioxide 28 mmol/L (21-32); Chloride 105 mmol/L (98-108); Creatine Kinase 45 U/L (26-192); Estimated Glomerular Filt Rate 47; Glucose 106 mg/dL (70-99); Osmolality Calculated 295 mOsm/kg (285-295); Phosphorus 3.4 mg/dL (2.6-4.7); Potassium 4.5 mmol/L (3.5-5.1); Sodium 142 mmol/L (136-145)
[2024-06-21 14:27] LABS: Erythrocyte Sedimentation Rate 16 mm/hr (0-20)
[2024-06-22 13:39] LABS: Complement C3 133 mg/dL (83-193)
[2024-06-22 13:58] LABS: Parathyroid Intact 50 pg/mL (16-77)
[2024-06-22 15:29] LABS: Complement Total CH50 37 U/mL (31-60)
[2024-06-23 04:19] LABS: Vitamin D 25 Hydroxy 35 ng/mL (30-100)
[2024-06-23 11:03] LABS: Calcium/Creatinine Ratio, Ur 285 mg/g creat (10-320); Urine Calcium, Random 30.2 mg/dL; Urine Creatinine, Random 106 mg/dL (20-275)
== END 2024-06-21 12:55 | disposition home or self-care (01) ==
PROVIDERS: PCP Internal Medicine; Visit Provider Internal Medicine Nephrology
DX: E83.52 Hypercalcemia (principal); I10 Essential (primary) hypertension; C50.919 Malignant neoplasm of unspecified site of unspecified female breast; N18.31 Chronic kidney disease, stage 3a
CPT/HCPCS: 36415; 80069; 81001; 82164; 82306; 82310; 82550; 82570; 82652; 83519; 83883; 83970; 84156; 84590; 85027; 85652; 86038; 86039; 86160; 86162; 86334

== ENCOUNTER 2024-06-23 08:41 | Outpatient (CLI) | payer MEDICARE, SELFPAY ==
--- OUTSIDE RECORDS SUMMARY | 2024-06-23 08:45 | XMS_ITS | Encounter Summary ---
Author Organization [facility] Address [address] [place] [address] Phone Care Team Providers Care Dye Maker Name Role Phone Jayashree Alan MD Primary Care Provider + [phone] Arpan Zamora MD Unavailable Victoria Connolly MD PhD Unavailable Encounter Details Date Type Department Care Team (Latest Contact Info) Description 03/02/2022 Orders Only [facility] Scanning, Provider Social History Tobacco Use Types Packs/Day Years Used Date Smoking Tobacco: Never Assessed Comments Unknown Sex and Gender Information Value Date Recorded Sex Assigned at Not on file Legal Sex Female 2:40 PM SLATE CUTTER Gender Identity Not on file Sexual Orientation [...] on filedocumented in this encounter Care Teams Dye Maker Relationship Specialty Start Date End Date Jayashree Alan MD [address] [place] [address] PCP - General Internal Medicine 04/18/23 Arpan Zamora MD [address] [place] [address] Consulting Physician Medical Oncology 08/19/23 Victoria Connolly MD PhD [address] [facility] [address] [place] [address] Radiation Oncologist Radiation Oncology 10/10/23 documented as of this encounter
--- OUTSIDE RECORDS SUMMARY | 2024-06-23 08:45 | XMS_ITS | Clinical Summary ---
Author Organization [place] [address] [facility] Address [address] [place] [address] Care Team Providers Care Handstitching Machine Armhole Feller Name Role Phone Jayashree Alan MD Primary Care Provider + [phone] Arpan Zamora MD Unavailable Victoria Connolly MD PhD Unavailable [phone] Allergies Active Allergy Reactions Criticality Noted Date [...] Cancer Staging:Clinical:Stage IB(cT1c, cN1, cM0, G2, ER+, [place]+, HER2-) - Unsigned Abnormal mammogram 07/08/2023 Mass of left breast 05/23/2023 Abnormal mammogram of left breast 05/23/2023 Encounters Date Type Department Care Team Description 06/04/2024 8:40 AM CDT Office Visit [facility] Advanced Medicine Radiation Oncology 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; Malignant neoplasm [...] on file Legal Sex Female 2:40 PM DEBEAKER Gender Identity Not on file Sexual Orientation Not on file Obstetrics History Last Filed Vital Signs Vital Sign Reading Time Taken Comments Blood Pressure 159/130 04/11/2024 9:26 AM DEBEAKER Pulse 62 04/11/2024 9:26 AM DEBEAKER Temperature 36.9 C (98.5 F) 04/11/2024 9:26 AM DEBEAKER Respiratory Rate 16 04/11/2024 9:26 AM DEBEAKER Oxygen Saturation 96% 04/11/2024 9:26 AM DEBEAKER Inhaled Oxygen Concentration - - Weight 99.8 kg (220 lb 1.6 oz) 06/04/2024 8:35 A M CDT Height 165.1 cm (5' 5 ) 03/22/2024 8:36 AM DEBEAKER Body Mass Index 36.63 03/22/2024 8:36 AM DEBEAKER Plan of Treatment Health Maintenance Due Date [...] Discontinued 025 Medical Devices Implanted Type Area Digital Computer Systems Analyst Device Identifier Shelf Expiration Date Model / Serial / Lot Bard Peripheral Vascular Ultraclip Bard 17ga 10cm 2 Trigger Permanent Ultrasound [id number] - [id number] Implanted:Qty: 1 on 05/25/2023 at [facility] Left: Breast Bard Peripheral Vascular [id number] / / Lockstitch Lining Setter [employer] [place] 20ga 7.5cm 2 Part Stabilizer Repositionable Depth Uday [id number] - [id number] Implanted:Qty: 1 on 08/05/2023 at [facility] [employer] [id number] 12/31/2027 [id number] / / [id number] Procedures Procedure Name Priority Date/Time Associated Diagnosis Comments DEXA AXIAL SKELETON BONE DENSITY 1 OR MORE SITES Schedule Routine, Read Routine (OP Routine) 04/25/2024 2:16 PM DEBEAKER DIAGNOSTIC MAMMOGRAM BILATERAL W MIGUEL Schedule Routine, Read Routine (OP Routine) 03/22/2024 9:46 AM DEBEAKER Malignant neoplasm of upper-outer quadrant of left breast in female, estrogen receptor positive (HCC) from Last 3 Months or Most Recently Relevant to Health Maintenance Results * Dexa Axial Skeleton Bone Density 1 or 2 Site (04/25/2024 2:16 PM DEBEAKER) Anatomical Region Laterality Modality Body N/A Radiographic Siobhan ging us Arpan Zamora MD IMG DXA PROCEDURE S Final Result * Diagnostic Mammogram Bilateral W Miguel (03/22/2024 9:46 AM DEBEAKER) Anatomical Region Laterality Modality Breast Bilateral Mammography 03/22/2024 10:2 2 AM DEBEAKER Impressions 03/22/2024 10:22 AM DEBEAKER 1. Post breast conservation therapy changes within [...] Papito Armstrong MD Narrative 03/22/2024 10:22 AM DEBEAKER EXAMINATION: BILATERAL DIGITAL DIAGNOSTIC MAMMOGRAM INCLUDING CAD [...] RIGHT breast was performed by a trained screen room operator and by Dr. Armstrong. BREAST PARENCHYMAL [...] RIGHT breast was performed by a trained screen room operator and by Dr. Armstrong. BREAST PARENCHYMAL [...] Recently Relevant to Health Maintenance Insurance MEDICARE Member Subscriber Plan / Payer ( fective 2013-Present) Name:Radha Castañeda Member ID:[id number] Relation to Subscriber:Self Name:Radha Castañeda Subscriber ID:[id number] Payer ID:[id number] Group ID:Not on file Type:MEDICARE TRADITIONAL Address: [address] [address] [facility] MEDICARE SUPPLEMENT MEDICARE [facility] MEDICARE SUPPLEMENT Care Teams Handstitching Machine Armhole Feller Relationship Specialty Start Date End Date Jayashree Alan MD [address] [place] [address] PCP - General Internal Medicine 04/18/23 Arpan Zamora MD [address] [place] [address] Consulting Physician Medical Oncology 08/19/23 Victoria Connolly MD PhD [address] [facility] [address] [place] [address] Radiation Oncologist Radiation Oncology 10/10/23
--- OUTSIDE RECORDS SUMMARY | 2024-06-23 08:45 | XMS_ITS | Clinical Summary ---
Author Organization [facility] Address [address] [facility] [place] [address] Care Team Providers Care Gear Tester Name Role Phone Jayashree Alan MD Primary Care Provider [phone] Source Comments [facility],non-owned Affiliates and Associated Physician Practices is amultiple site organization consisting of ambulatory clinics and hospital sitesin [place], [place], [place] and [place]. This disclosure is being madepursuant to the Care Everywhere program and may not contain all information available regarding this patient. Last updated 17.[facility] [employer] Allergies Active Allergy Reactions Criticality Noted Date [...] on file Legal Sex Female 9:37 AM HEAD AND NECK SURGEON Gender Identity Not on file Sexual Orientation Not on file Last Filed Vital Signs Vital Sign Reading Time Taken Comments Blood Pressure 142/98 04/28/2016 9:54 AM HEAD AND NECK SURGEON Pulse 88 04/28/2016 9:54 AM HEAD AND NECK SURGEON Temperature 36.8 C (98.3 F) 04/28/2016 9:54 AM HEAD AND NECK SURGEON Respiratory Rate 16 04/28/2016 9:54 AM HEAD AND NECK SURGEON Oxygen Saturation 96% 04/28/2016 9:54 AM HEAD AND NECK SURGEON Inhaled Oxygen Concentration - - Weight 90.7 kg (200 lb) 04/28/2016 9:54 AM HEAD AND NECK SURGEON Height 166.4 cm (5' 5.5 ) 04/28/2016 9:54 AM HEAD AND NECK SURGEON Body Mass Index 32.78 04/28/2016 9:54 AM HEAD AND NECK SURGEON Plan of Treatment Health Maintenance Due Date [...] patient's age to complete this topic Insurance [employer] [place] MEDICARE MEDICARE Care Teams Gear Tester Relationship Specialty Start Date End Date Jayashree Alan MD PCP - General Internal Medicine 04/28/16
--- OUTSIDE RECORDS SUMMARY | 2024-06-23 08:45 | XMS_ITS | Referral Summary ---
Author Organization [place] [address] [facility] Address [address] [place] [address] Care Team Providers Care Chiller Hand Name Role Phone Jayashree Alan MD Primary Care Provider + [phone] Arpan Zamora MD Unavailable Victoria Connolly MD PhD Unavailable Encounters Date Type Department Care Team Description 06/04/2024 8:40 AM CDT Office Visit [facility] Advanced Medicine Radiation Oncology [address] [facility] [place] [address] Gertrude Marquez PA Malignant neoplasm of upper-outer quadrant of left breast in female, estrogen receptor positive (HCC) 04/26/2024 Orders Only [facility] Oncology [address] [place] [address] Arpan Zamora MD 04/11/2024 9:30 AM PROJECT CONTROLS SPECIALIST Office Visit [facility] Oncology [address] 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) use of aromatase inhibitors; Malignant neoplasm [...] Cancer Staging:Clinical:Stage IB(cT1c, cN1, cM0, G2, ER+, [place]+, HER2-) - Unsigned Abnormal mammogram 07/08/2023 Mass [...] on file Legal Sex Female 2:40 PM PROJECT CONTROLS SPECIALIST Gender Identity Not on file Sexual Orientation Not on file Last Filed Vital Signs Vital Sign Reading Time Taken Comments Blood Pressure 159/130 04/11/2024 9:26 AM PROJECT CONTROLS SPECIALIST Pulse 62 04/11/2024 9:26 AM PROJECT CONTROLS SPECIALIST Temperature 36.9 C (98.5 F) 04/11/2024 9:26 AM PROJECT CONTROLS SPECIALIST Respiratory Rate 16 04/11/2024 9:26 AM PROJECT CONTROLS SPECIALIST Oxygen Saturation 96% 04/11/2024 9:26 AM PROJECT CONTROLS SPECIALIST Inhaled Oxygen Concentration - - Weight 99.8 kg (220 lb 1.6 oz) 06/04/2024 8:35 A M CDT Height 165.1 cm (5' 5 ) 03/22/2024 8:36 AM PROJECT CONTROLS SPECIALIST Body Mass Index 36.63 03/22/2024 8:36 AM PROJECT CONTROLS SPECIALIST Plan of Treatment Not on file Medical Devices Implanted Type Area Automotive Parts Counter Associate Device Identifier Shelf Expiration Date Model / Serial / Lot Bard Peripheral Vascular Ultraclip Bard 17ga 10cm 2 Trigger Permanent Ultrasound [id number] - [id number] Implanted:Qty: 1 on 05/25/2023 at [facility] Left: Breast Bard Peripheral Vascular [id number] / / Acute Care Nurse [employer] [place] 20ga 7.5cm 2 Part Stabilizer Repositionable Depth Uday [id number] - [id number] Implanted:Qty: 1 on 08/05/2023 at [facility] [employer] [id number] 12/31/2027 [id number] / / [id number] Procedures Procedure Name Priority Date/Time Associated Diagnosis Comments DEXA AXIAL SKELETON BONE DENSITY 1 OR MORE SITES Schedule Routine, Read Routine (OP Routine) 04/25/2024 2:16 PM PROJECT CONTROLS SPECIALIST DIAGNOSTIC MAMMOGRAM BILATERAL W MIGUEL Schedule Routine, Read Routine (OP Routine) 03/22/2024 9:46 AM PROJECT CONTROLS SPECIALIST Malignant neoplasm of upper-outer quadrant of left breast in female, estrogen receptor positive (HCC) from Last 3 Months or Most Recently Relevant to Health Maintenance Results * Dexa Axial Skeleton Bone Density 1 or 2 Site (04/25/2024 2:16 PM PROJECT CONTROLS SPECIALIST) Anatomical Region Laterality Modality Body N/A Radiographic Siobhan ging us Arpan Zamora MD IMG DXA PROCEDURE S Final Result * Diagnostic Mammogram Bilateral W Miguel (03/22/2024 9:46 AM PROJECT CONTROLS SPECIALIST) Anatomical Region Laterality Modality Breast Bilateral Mammography 03/22/2024 10:2 2 AM PROJECT CONTROLS SPECIALIST Impressions 03/22/2024 10:22 AM PROJECT CONTROLS SPECIALIST 1. Post breast conservation therapy changes within [...] Papito Armstrong MD Narrative 03/22/2024 10:22 AM PROJECT CONTROLS SPECIALIST EXAMINATION: BILATERAL DIGITAL DIAGNOSTIC MAMMOGRAM INCLUDING CAD [...] RIGHT breast was performed by a trained shadowgraph operator and by Dr. Armstrong. BREAST PARENCHYMAL [...] RIGHT breast was performed by a trained shadowgraph operator and by Dr. Armstrong. BREAST PARENCHYMAL [...] Relevant to Health Maintenance Insurance MEDICARE [facility] MEDICARE SUPPLEMENT MEDICARE [employer] MEDICARE SUPPLEMENT Care Teams Chiller Hand Relationship Specialty Start Date End Date Jayashree Alan MD [address] [place] [address] PCP - General Internal Medicine 04/18/23 Arpan Zamora MD [address] [place] [address] Consulting Physician Medical Oncology 08/19/23 Victoria Connolly MD PhD [address] [facility] [address] [place] [address] Radiation Oncologist Radiation Oncology 10/10/23
--- OUTSIDE RECORDS SUMMARY | 2024-06-23 08:45 | XMS_ITS | Clinical Summary ---
Author Organization [facility] Address [address] [place] [address] Care Team Providers Care Automotive Mechanical Engineer Name Role Phone Unavailable Primary Care Provider [...] Td Vaccines ( 1 - Tdap) 11/11/1967 Pneumococcal Vaccine: 50+ Ye ars (1 of 1 - PCV) 1998 Zoster Vaccines (1 of 2) 1998 Annual Medicare Wellness Visit 2013 Dexa Scan (General) 2013 COVID-19 Vaccine ( - 2023-2 5 season) 2023 RSV Immunization or 60+ [...]
--- OUTSIDE RECORDS SUMMARY | 2024-06-23 08:45 | XMS_ITS ---
Author Organization [place] [id number] [facility] Address [address] [place] [address] Care Team Providers Care Film Process Operator Name Role Phone Jayashree Alan MD Primary Care Provider + [phone] Arpan Zamora MD Unavailable Victoria Connolly MD PhD Unavailable [phone] Active Problems Problem Noted Date Diagnosed Date Malignant neoplasm of centra l portion of left breast in female, estrogen receptor positive 08/05/2023 Cancer Staging:Clinical:Stage IB(cT1c, cN1, cM0, G2, ER+, [place]+, HER2-) - Unsigned Abnormal mammogram 07/08/2023 Mass [...]
[2024-06-23 09:20] LABS: Total Volume 24 Hour Urine 2100 ml; Urea Nitrogen 24 Hour Urine 6.4 g/Day (7-20)
[2024-06-24 06:43] LABS: Creat 24 Hr 1.18 g/24 h (0.50-2.15); Pro/Creat Ratio 161 mg/g creat (<150); Pro/Creat Ratio mg/mg 0.161 (<0.150); Protein,total, 24 Hr Ur 189 mg/24 h (<150)
[2024-06-26 14:58] LABS: Albumin 100 %
== END 2024-06-23 08:42 | disposition home or self-care (01) ==
PROVIDERS: PCP Internal Medicine; Visit Provider Internal Medicine Nephrology
DX: E83.52 Hypercalcemia (principal); I10 Essential (primary) hypertension; C50.919 Malignant neoplasm of unspecified site of unspecified female breast
CPT/HCPCS: 81050; 84540; 86335

== ENCOUNTER 2024-06-28 12:19 | Outpatient (CLI) | payer MEDICARE, SELFPAY ==
--- NOTE | ~2024-06-28 | XR_ITS ---
Supine and upright views of the abdomen Clinical history: Hypercalcemia Findings: Bowel gas pattern is nonspecific. No evidence for obstruction or free air. Questionable tin y left renal stone versus bowel contents. Osseous structures are intact. Impression: Questionable small left renal stone versus bowel contents. Reviewed, dictated and finalized at [facility]. Impression: Questionable small left renal stone versus bowel contents.
--- NOTE | ~2024-06-28 | US_ITS ---
Renal-Bladder ultrasound Clinical History: Hypercalcemia Technique: Real-time sonographic imaging of the kidneys and urinary bladder was performed. Findings: The right kidney measures 10.9 cm in length and the left kidney measures 11.5 cm. There is no hydronephrosis or renal calculus identified. Renal cortical echogenicity is within normal limits. Small bilateral renal cysts are present. The urinary bladder is moderately distended at the time of this exam. No intraluminal echoes are iden tified. No abnormal wall thickening is seen. Impression: Small bilateral renal cysts, otherwise unremarkable exam. Reviewed, dictated and finalized at location M. Impression: Small bilateral renal cysts, otherwise unremarkable exam.
--- OUTSIDE RECORDS SUMMARY | 2024-06-28 13:25 | XMS_ITS ---
Author Organization [place] [id number] [facility] Address [address] [place] [address] Care Team Providers Care Bag Machine Operator Helper Name Role Phone Jayashree Alan MD Primary Care Provider + [phone] Arpan Zamora MD Unavailable Victoria Connolly MD PhD Unavailable [phone] Active Problems Problem Noted Date Diagnosed Date Malignant neoplasm of centra l portion of left breast in female, estrogen receptor positive 08/05/2023 Cancer Staging:Clinical:Stage IB(cT1c, cN1, cM0, G2, ER+, [place]+, HER2-) - Unsigned Abnormal mammogram 07/08/2023 Mass [...]
--- OUTSIDE RECORDS SUMMARY | 2024-06-28 13:25 | XMS_ITS | Clinical Summary ---
Author Organization [facility] Address [address] [place] [address] Care Team Providers Care Budget Technician Name Role Phone Unavailable Primary Care Provider [...]
--- OUTSIDE RECORDS SUMMARY | 2024-06-28 13:25 | XMS_ITS | Clinical Summary ---
Author Organization [place] [id number] [facility] Address [address] [place] [address] Care Team Providers Care Cable Inspector Name Role Phone Jayashree Alan MD Primary Care Provider + [phone] Arpan Zamora MD Unavailable Victoria Connolly MD PhD Unavailable [phone] Allergies Active Allergy Reactions Criticality Noted Date [...] Cancer Staging:Clinical:Stage IB(cT1c, cN1, cM0, G2, ER+, [place]+, HER2-) - Unsigned Abnormal mammogram 07/08/2023 Mass of left breast 05/23/2023 Abnormal mammogram of left breast 05/23/2023 Encounters Date Type Department Care Team Description 06/04/2024 8:40 AM CDT Office Visit [facility] Advanced Medicine Radiation Oncology [facility] [place] [address] Gertrude Marquez PA Malignant neoplasm of upper-outer quadrant of left breast in female, estrogen receptor positive (HCC) 04/26/2024 Orders Only [facility] Oncology [address] [place] [address] Arpan Zamora MD 04/11/2024 9:30 AM JANITORIAL MAINTENANCE WORKER Office Visit [facility] Oncology [address] [facility] [address] [place] [address] Arpan Zamora MD Malignant neoplasm of central portion of left breast in female, estrogen receptor positive (HCC) (Primary Dx); 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; Malignant neoplasm [...] on file Legal Sex Female 2:40 PM JANITORIAL MAINTENANCE WORKER Gender Identity Not on file Sexual Orientation Not on file Obstetrics History Last Filed Vital Signs Vital Sign Reading Time Taken Comments Blood Pressure 159/130 04/11/2024 9:26 AM JANITORIAL MAINTENANCE WORKER Pulse 62 04/11/2024 9:26 AM JANITORIAL MAINTENANCE WORKER Temperature 36.9 C (98.5 F) 04/11/2024 9:26 AM JANITORIAL MAINTENANCE WORKER Respiratory Rate 16 04/11/2024 9:26 AM JANITORIAL MAINTENANCE WORKER Oxygen Saturation 96% 04/11/2024 9:26 AM JANITORIAL MAINTENANCE WORKER Inhaled Oxygen Concentration - - Weight 99.8 kg (220 lb 1.6 oz) 06/04/2024 8:35 A M CDT Height 165.1 cm (5' 5 ) 03/22/2024 8:36 AM JANITORIAL MAINTENANCE WORKER Body Mass Index 36.63 03/22/2024 8:36 AM JANITORIAL MAINTENANCE WORKER Plan of Treatment Health Maintenance Due Date [...] Discontinued 025 Medical Devices Implanted Type Area Vice Investigator Device Identifier Shelf Expiration Date Model / Serial / Lot Bard Peripheral Vascular Ultraclip Bard 17ga 10cm 2 Trigger Permanent Ultrasound [id number] - [id number] Implanted:Qty: 1 on 05/25/2023 at [facility] Left: Breast Bard Peripheral Vascular [id number] / / Manager [employer] Victor 20ga 7.5cm 2 Part Stabilizer Repositionable Depth Uday [id number] - [id number] Implanted:Qty: 1 on 08/05/2023 at [facility] Manager [employer] [id number] 12/31/2027 [id number] / / [id number] Procedures Procedure Name Priority Date/Time Associated Diagnosis Comments DEXA AXIAL SKELETON BONE DENSITY 1 OR MORE SITES Schedule Routine, Read Routine (OP Routine) 04/25/2024 2:16 PM JANITORIAL MAINTENANCE WORKER DIAGNOSTIC MAMMOGRAM BILATERAL W MIGUEL Schedule Routine, Read Routine (OP Routine) 03/22/2024 9:46 AM JANITORIAL MAINTENANCE WORKER Malignant neoplasm of upper-outer quadrant of left breast in female, estrogen receptor positive (HCC) from Last 3 Months or Most Recently Relevant to Health Maintenance Results * Dexa Axial Skeleton Bone Density 1 or 2 Site (04/25/2024 2:16 PM JANITORIAL MAINTENANCE WORKER) Anatomical Region Laterality Modality Body N/A Radiographic Siobhan ging us Arpan Zamora MD IMG DXA PROCEDURE S Final Result * Diagnostic Mammogram Bilateral W Miguel (03/22/2024 9:46 AM JANITORIAL MAINTENANCE WORKER) Anatomical Region Laterality Modality Breast Bilateral Mammography 03/22/2024 10:2 2 AM JANITORIAL MAINTENANCE WORKER Impressions 03/22/2024 10:22 AM JANITORIAL MAINTENANCE WORKER 1. Post breast conservation therapy changes within [...] Papito Armstrong MD Narrative 03/22/2024 10:22 AM JANITORIAL MAINTENANCE WORKER EXAMINATION: BILATERAL DIGITAL DIAGNOSTIC MAMMOGRAM INCLUDING CAD [...] RIGHT breast was performed by a trained manager internal and by Dr. Armstrong. BREAST PARENCHYMAL COMPOSITION: [...] RIGHT breast was performed by a trained manager internal and by Dr. Armstrong. BREAST PARENCHYMAL COMPOSITION: [...] Recently Relevant to Health Maintenance Insurance MEDICARE [facility] MEDICARE SUPPLEMENT MEDICARE [facility] MEDICARE SUPPLEMENT Care Teams Cable Inspector Relationship Specialty Start Date End Date Jayashree Alan MD [address] [place] [address] PCP - General Internal Medicine 04/18/23 Arpan Zamora MD [address] [place] [address] Consulting Physician Medical Oncology 08/19/23 Victoria Connolly MD PhD [address] [facility] [address] [place] [address] Radiation Oncologist Radiation Oncology 10/10/23
--- OUTSIDE RECORDS SUMMARY | 2024-06-28 13:25 | XMS_ITS | Encounter Summary ---
Author Organization [facility] Address [address] [place] [address] Phone Care Team Providers Care Product Engineer Name Role Phone Jayashree Alan MD Primary Care Provider + [phone] Arpan Zamora MD Unavailable Victoria Connolly MD PhD Unavailable [phone] Encounter Details Date Type Department Care Team (Latest Contact Info) Description 03/02/2022 Orders Only [facility] Scanning, Provider Social History Tobacco Use Types Packs/Day Years Used Date Smoking Tobacco: Never Assessed Comments Unknown Sex and Gender Information Value Date Recorded Sex Assigned at Not on file Legal Sex Female 2:40 PM QUALITY ASSURANCE SPECIALIST Gender Identity Not on file Sexual [...] on filedocumented in this encounter Care Teams Product Engineer Relationship Specialty Start Date End Date Jayashree Alan MD [address] [place] [address] PCP - General Internal Medicine 04/18/23 Arpan Zamora MD [address] [place] [address] Consulting Physician Medical Oncology 08/19/23 Victoria Connolly MD PhD [address] [facility] [address] [place] [address] Radiation Oncologist Radiation Oncology 10/10/23 documented as of this encounter
--- OUTSIDE RECORDS SUMMARY | 2024-06-28 13:25 | XMS_ITS | Clinical Summary ---
Author Organization [facility] Address [address] [place] [address] Care Team Providers Care Testing Tech Name Role Phone Jayashree Alan MD Primary Care Provider [phone] Source Comments [facility],non-owned Affiliates and Associated Physician Practices is amultiple site organization consisting of ambulatory clinics and hospital sitesin [place] and [place]. This disclosure is being madepursuant to the Care Everywhere program and may not contain all information available regarding this patient. Last updated 17.[facility] [employer] Allergies Active Allergy Reactions Criticality Noted Date [...] on file Legal Sex Female 9:37 AM DIRECTOR HEALTH Gender Identity Not on file Sexual Orientation Not on file Last Filed Vital Signs Vital Sign Reading Time Taken Comments Blood Pressure 142/98 04/28/2016 9:54 AM DIRECTOR HEALTH Pulse 88 04/28/2016 9:54 AM DIRECTOR HEALTH Temperature 36.8 C (98.3 F) 04/28/2016 9:54 AM DIRECTOR HEALTH Respiratory Rate 16 04/28/2016 9:54 AM DIRECTOR HEALTH Oxygen Saturation 96% 04/28/2016 9:54 AM DIRECTOR HEALTH Inhaled Oxygen Concentration - - Weight 90.7 kg (200 lb) 04/28/2016 9:54 AM DIRECTOR HEALTH Height 166.4 cm (5' 5.5 ) 04/28/2016 9:54 AM DIRECTOR HEALTH Body Mass Index 32.78 04/28/2016 9:54 AM DIRECTOR HEALTH Plan of Treatment Health Maintenance Due Date Last Done Comments BONE DENSITY TESTING 1950 COLOGUARD (AGES 45-75) - COL ON CA SCREENING 1948 COLON MONITORING 1948 COLONOSCOPY - COLON CA SCREENING 1948 CT COLONOGRAPHY - COLON CA SCREENING 1950 Colorectal Cancer Screening 1948 FIT - COLON CA SCREENING 1948 FLEX SIG - COLON CA SCREENING 1948 LIPID TESTING 1950 MAMMOGRAM 1950 HEPATITIS C SCREENING 11/06/1966 DTAP/TDAP/TD VACCINES [...] patient's age to complete this topic Insurance [employer] [place] MEDICARE MEDICARE Care Teams Testing Tech Relationship Specialty Start Date End Date Jayashree Alan MD PCP - General Internal Medicine 04/28/16
--- OUTSIDE RECORDS SUMMARY | 2024-06-28 13:25 | XMS_ITS | Referral Summary ---
Author Organization [place] [address] [facility] Address [address] [place] [address] Care Team Providers Care Manager E Commerce Name Role Phone Jayashree Alan MD Primary Care Provider + [phone] Arpan Zamora MD Unavailable Victoria Connolly MD PhD Unavailable Encounters Date Type Department Care Team Description 06/04/2024 8:40 AM CDT Office Visit [facility] Advanced Medicine Radiation Oncology [address] [facility] [place] [address] Gertrude Marquez PA Malignant neoplasm of upper-outer quadrant of left breast in female, estrogen receptor positive (HCC) 04/26/2024 Orders Only [facility] Oncology [address] [place] [address] Arpan Zamora MD 04/11/2024 9:30 AM SENIOR JAVA SOFTWARE DEVELOPER Office Visit [facility] Oncology [address] [facility] Floor [address] [place] [address] Arpan Zamora MD Malignant neoplasm of central portion of left breast in female, estrogen receptor positive (HCC) (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); 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; Malignant neoplasm [...] Cancer Staging:Clinical:Stage IB(cT1c, cN1, cM0, G2, ER+, [place]+, HER2-) - Unsigned Abnormal mammogram 07/08/2023 Mass [...] on file Legal Sex Female 2:40 PM SENIOR JAVA SOFTWARE DEVELOPER Gender Identity Not on file Sexual Orientation Not on file Last Filed Vital Signs Vital Sign Reading Time Taken Comments Blood Pressure 159/130 04/11/2024 9:26 AM SENIOR JAVA SOFTWARE DEVELOPER Pulse 62 04/11/2024 9:26 AM SENIOR JAVA SOFTWARE DEVELOPER Temperature 36.9 C (98.5 F) 04/11/2024 9:26 AM SENIOR JAVA SOFTWARE DEVELOPER Respiratory Rate 16 04/11/2024 9:26 AM SENIOR JAVA SOFTWARE DEVELOPER Oxygen Saturation 96% 04/11/2024 9:26 AM SENIOR JAVA SOFTWARE DEVELOPER Inhaled Oxygen Concentration - - Weight 99.8 kg (220 lb 1.6 oz) 06/04/2024 8:35 A M CDT Height 165.1 cm (5' 5 ) 03/22/2024 8:36 AM SENIOR JAVA SOFTWARE DEVELOPER Body Mass Index 36.63 03/22/2024 8:36 AM SENIOR JAVA SOFTWARE DEVELOPER Plan of Treatment Not on file Medical Devices Implanted Type Area Overhead Crane Inspector Device Identifier Shelf Expiration Date Model / Serial / Lot Bard Peripheral Vascular Ultraclip Bard 17ga 10cm 2 Trigger Permanent Ultrasound [id number] - [id number] Implanted:Qty: 1 on 05/25/2023 at [facility] Left: Breast Bard Peripheral Vascular [id number] / / Diabetes [employer] Wiley [place] 20ga 7.5cm 2 Part Stabilizer Repositionable Depth Uday [id number] - [id number] Implanted:Qty: 1 on 08/05/2023 at [facility] Diabetes [employer] [id number] 12/31/2027 [id number] / / [id number] Procedures Procedure Name Priority Date/Time Associated Diagnosis Comments DEXA AXIAL SKELETON BONE DENSITY 1 OR MORE SITES Schedule Routine, Read Routine (OP Routine) 04/25/2024 2:16 PM SENIOR JAVA SOFTWARE DEVELOPER DIAGNOSTIC MAMMOGRAM BILATERAL W MIGUEL Schedule Routine, Read Routine (OP Routine) 03/22/2024 9:46 AM SENIOR JAVA SOFTWARE DEVELOPER Malignant neoplasm of upper-outer quadrant of left breast in female, estrogen receptor positive (HCC) from Last 3 Months or Most Recently Relevant to Health Maintenance Results * Dexa Axial Skeleton Bone Density 1 or 2 Site (04/25/2024 2:16 PM SENIOR JAVA SOFTWARE DEVELOPER) Anatomical Region Laterality Modality Body N/A Radiographic Siobhan ging us Apran Zamora MD IMG DXA PROCEDURE S Final Result * Diagnostic Mammogram Bilateral W Miguel (03/22/2024 9:46 AM SENIOR JAVA SOFTWARE DEVELOPER) Anatomical Region Laterality Modality Breast Bilateral Mammography 03/22/2024 10:2 2 AM SENIOR JAVA SOFTWARE DEVELOPER Impressions 03/22/2024 10:22 AM SENIOR JAVA SOFTWARE DEVELOPER 1. Post breast conservation therapy changes within [...] Papito Armstrong MD Narrative 03/22/2024 10:22 AM SENIOR JAVA SOFTWARE DEVELOPER EXAMINATION: BILATERAL DIGITAL DIAGNOSTIC MAMMOGRAM INCLUDING CAD [...] RIGHT breast was performed by a trained stope miner and by Dr. Armstrong. BREAST PARENCHYMAL [...] RIGHT breast was performed by a trained stope miner and by Dr. Armstrong. BREAST PARENCHYMAL [...] Recently Relevant to Health Maintenance Insurance MEDICARE [facility] MEDICARE SUPPLEMENT MEDICARE [employer] MEDICARE SUPPLEMENT Care Teams Manager E Commerce Relationship Specialty Start Date End Date Jayashree Alan MD [address] [place] [address] PCP - General Internal Medicine 04/18/23 Arpan Zamora MD [address] [place] [address] Consulting Physician Medical Oncology 08/19/23 Victoria Connolly MD PhD [address] [facility] [address] [place] [address] Radiation Oncologist Radiation Oncology 10/10/23
== END 2024-06-28 12:20 | disposition home or self-care (01) ==
LOC: CHSIMG 12:21
PROVIDERS: PCP Internal Medicine; Visit Provider Internal Medicine Nephrology
DX: R82.81 Pyuria (principal); C50.919 Malignant neoplasm of unspecified site of unspecified female breast; E83.52 Hypercalcemia; N18.31 Chronic kidney disease, stage 3a; I10 Essential (primary) hypertension; N28.1 Cyst of kidney, acquired
CPT/HCPCS: 74018; 76775; 87086; 87186

== ENCOUNTER 2024-07-09 08:46 | Outpatient (CLI) | payer MEDICARE, SELFPAY ==
--- NOTE | ~2024-07-09 | NM_ITS ---
EXAMINATION: NM bone scan whole body DATE: 07/09/2024 12:06 INDICATION: Right breast cancer. Hypercalcemia. TECHNIQUE: 29.6 mCi Tc-99m HDP was administered intravenously. Delayed whole-body scintigrams were o btained. COMPARISON: There are no relevant imaging studies at our institution. FINDINGS: Typical distribution of mild likely degenerative joint centered uptake at the bilateral acromioclavic ular joints, the medial compartment of the right knee and at the bilateral feet, right greater than l eft. No other suspicious foci of abnormal bone uptake to suggest metastatic disease. Mild lumbar levo curvature. IMPRESSION: 1. No evident metastatic disease. Reviewed, dictated and finalized at location A.
--- OUTSIDE RECORDS SUMMARY | 2024-07-09 09:10 | XMS_ITS ---
Author Organization [facility] [address] [facility] Address [address] [place] [address] Care Team Providers Care Scleroscope Tester Name Role Phone Jayashree Alan MD Primary Care Provider + [phone] Arpan Zamora MD Unavailable Victoria Connolly MD PhD Unavailable [phone] Active Problems Problem Noted Date Diagnosed Date Malignant neoplasm of centra l portion of left breast in female, estrogen receptor positive 08/05/2023 Cancer Staging:Clinical:Stage IB(cT1c, cN1, cM0, G2, ER+, [place]+, HER2-) - Unsigned Abnormal mammogram 07/08/2023 Mass [...]
--- OUTSIDE RECORDS SUMMARY | 2024-07-09 09:10 | XMS_ITS | Clinical Summary ---
Author Organization [facility] Address [address] [facility] [place] [address] Care Team Providers Care Nutrition Educator Name Role Phone Jayashree Alan MD Primary Care Provider [phone] Source Comments [facility],non-owned Affiliates and Associated Physician Practices is amultiple site organization consisting of ambulatory clinics and hospital sitesin [place], [place], [place] and [place]. This disclosure is being madepursuant to the Care Everywhere program and may not contain all information available regarding this patient. Last updated 17.[facility] [place] Allergies Active Allergy Reactions Criticality Noted Date [...] on file Legal Sex Female 9:37 AM MICA SPLITTER Gender Identity Not on file Sexual Orientation Not on file Last Filed Vital Signs Vital Sign Reading Time Taken Comments Blood Pressure 142/98 04/28/2016 9:54 AM MICA SPLITTER Pulse 88 04/28/2016 9:54 AM MICA SPLITTER Temperature 36.8 C (98.3 F) 04/28/2016 9:54 AM MICA SPLITTER Respiratory Rate 16 04/28/2016 9:54 AM MICA SPLITTER Oxygen Saturation 96% 04/28/2016 9:54 AM MICA SPLITTER Inhaled Oxygen Concentration - - Weight 90.7 kg (200 lb) 04/28/2016 9:54 AM MICA SPLITTER Height 166.4 cm (5' 5.5 ) 04/28/2016 9:54 AM MICA SPLITTER Body Mass Index 32.78 04/28/2016 9:54 AM MICA SPLITTER Plan of Treatment Health Maintenance Due Date [...] patient's age to complete this topic Insurance [employer] [place] MEDIC[place] MEDICARE Care Teams Nutrition Educator Relationship Specialty Start Date End Date Jayashree Alan MD PCP - General Internal Medicine 04/28/16
--- OUTSIDE RECORDS SUMMARY | 2024-07-09 09:10 | XMS_ITS | Referral Summary ---
Author Organization [place] [id number] [facility] Address [address] [place] [address] Care Team Providers Care Online Health And Fitness Coach Name Role Phone Jayashree Alan MD Primary Care Provider + [phone] Arpan Zamora MD Unavailable Victoria Connolly MD PhD Unavailable [phone] Encounters Date Type Department Care Team Description 06/04/2024 8:40 AM CDT Office Visit [facility] Advanced Medicine Radiation Oncology [address] [facility] [place] [address] Gertrude Marquez PA Malignant neoplasm of upper-outer quadrant of left breast in female, estrogen receptor positive (HCC) 04/26/2024 Orders Only [facility] Oncology [address] [place] [address] Arpan Zamora MD 04/11/2024 9:30 AM FIELD LIABILITY GENERALIST Office Visit [facility] Oncology [address] [facility] [address] [place] [address] Arpan Zamora MD Malignant neoplasm of central portion of left breast in female, estrogen receptor positive (HCC) (Primary Dx); 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; Malignant neoplasm [...] Cancer Staging:Clinical:Stage IB(cT1c, cN1, cM0, G2, ER+, [place]+, HER2-) - Unsigned Abnormal mammogram 07/08/2023 Mass [...] on file Legal Sex Female 2:40 PM FIELD LIABILITY GENERALIST Gender Identity Not on file Sexual Orientation Not on file Last Filed Vital Signs Vital Sign Reading Time Taken Comments Blood Pressure 159/130 04/11/2024 9:26 AM FIELD LIABILITY GENERALIST Pulse 62 04/11/2024 9:26 AM FIELD LIABILITY GENERALIST Temperature 36.9 C (98.5 F) 04/11/2024 9:26 AM FIELD LIABILITY GENERALIST Respiratory Rate 16 04/11/2024 9:26 AM FIELD LIABILITY GENERALIST Oxygen Saturation 96% 04/11/2024 9:26 AM FIELD LIABILITY GENERALIST Inhaled Oxygen Concentration - - Weight 99.8 kg (220 lb 1.6 oz) 06/04/2024 8:35 A M CDT Height 165.1 cm (5' 5 ) 03/22/2024 8:36 AM FIELD LIABILITY GENERALIST Body Mass Index 36.63 03/22/2024 8:36 AM FIELD LIABILITY GENERALIST Plan of Treatment Not on file Medical Devices Implanted Type Area Us Customs And Border Officer Device Identifier Shelf Expiration Date Model / Serial / Lot Bard Peripheral Vascular Ultraclip Bard 17ga 10cm 2 Trigger Permanent Ultrasound [id number] - [id number] Implanted:Qty: 1 on 05/25/2023 at [facility] Left: Breast Bard Peripheral Vascular [id number] / / Field Artillery Officer [employer] [place] 20ga 7.5cm 2 Part Stabilizer Repositionable Depth Uday [id number] - [id number] Implanted:Qty: 1 on 08/05/2023 at [facility] Field Artillery [employer] [id number] 12/31/2027 [id number] / / [id number] Procedures Procedure Name Priority Date/Time Associated Diagnosis Comments DEXA AXIAL SKELETON BONE DENSITY 1 OR MORE SITES Schedule Routine, Read Routine (OP Routine) 04/25/2024 2:16 PM FIELD LIABILITY GENERALIST DIAGNOSTIC MAMMOGRAM BILATERAL W MIGUEL Schedule Routine, Read Routine (OP Routine) 03/22/2024 9:46 AM FIELD LIABILITY GENERALIST Malignant neoplasm of upper-outer quadrant of left breast in female, estrogen receptor positive (HCC) from Last 3 Months or Most Recently Relevant to Health Maintenance Results * Dexa Axial Skeleton Bone Density 1 or 2 Site (04/25/2024 2:16 PM FIELD LIABILITY GENERALIST) Anatomical Region Laterality Modality Body N/A Radiographic Siobhan ging us Arpan Zamora MD IMG DXA PROCEDURE S Final Result * Diagnostic Mammogram Bilateral W Miguel (03/22/2024 9:46 AM FIELD LIABILITY GENERALIST) Anatomical Region Laterality Modality Breast Bilateral Mammography 03/22/2024 10:2 2 AM FIELD LIABILITY GENERALIST Impressions 03/22/2024 10:22 AM FIELD LIABILITY GENERALIST 1. Post breast conservation therapy changes within [...] Papito Armstrong MD Narrative 03/22/2024 10:22 AM FIELD LIABILITY GENERALIST EXAMINATION: BILATERAL DIGITAL DIAGNOSTIC MAMMOGRAM INCLUDING CAD [...] RIGHT breast was performed by a trained clinical research director and by Dr. Armstrong. BREAST PARENCHYMAL COMPOSITION: [...] RIGHT breast was performed by a trained clinical research director and by Dr. Armstrong. BREAST PARENCHYMAL COMPOSITION: [...] Recently Relevant to Health Maintenance Insurance MEDICARE [facility] MEDICARE SUPPLEMENT MEDICARE [employer] MEDICARE SUPPLEMENT Care Teams Online Health And Fitness Coach Relationship Specialty Start Date End Date Jayashree Alan MD [address] [place] [address] PCP - General Internal Medicine 04/18/23 Arpan Zamora MD [address] [place] [address] Consulting Physician Medical Oncology 08/19/23 Victoria Connolly MD PhD [address] [facility] [address] [place] [address] Radiation Oncologist Radiation Oncology 10/10/23
--- OUTSIDE RECORDS SUMMARY | 2024-07-09 09:10 | XMS_ITS | Clinical Summary ---
Author Organization [facility] Address [address] [place] [address] Care Team Providers Care Copper Miner Blasting Name Role Phone Unavailable Primary Care Provider [...]
--- OUTSIDE RECORDS SUMMARY | 2024-07-09 09:10 | XMS_ITS | Encounter Summary ---
Author Organization [facility] Address [address] [place] [address] Phone Care Team Providers Care Management Accounts Manager Name Role Phone Jayashree Alan MD Primary Care Provider + [phone] Arpan Zamora MD Unavailable Victoria Connolly MD PhD Unavailable [phone] Encounter Details Date Type Department Care Team (Latest Contact Info) Description 03/02/2022 Orders Only [facility] Scanning, Provider Social History Tobacco Use Types Packs/Day Years Used Date Smoking Tobacco: Never Assessed Comments Unknown Sex and Gender Information Value Date Recorded Sex Assigned at Not on file Legal Sex Female 2:40 PM BUILDINGS AND GROUNDS COORDINATOR Gender Identity Not on file Sexual Orientation [...] on filedocumented in this encounter Care Teams Management Accounts Manager Relationship Specialty Start Date End Date Jayashree Alan MD [address] [place] [address] PCP - General Internal Medicine 04/18/23 Arpan Zamora MD [address] [place] [address] Consulting Physician Medical Oncology 08/19/23 Victoria Connolly MD PhD [address] [facility] [address] [place] [address] Radiation Oncologist Radiation Oncology 10/10/23 documented as of this encounter
--- OUTSIDE RECORDS SUMMARY | 2024-07-09 09:10 | XMS_ITS | Clinical Summary ---
Author Organization [place] [id number] [facility] Address [address] [place] [address] Care Team Providers Care Blood Bank Business Manager Name Role Phone Jayashree Alan MD Primary Care Provider + [phone] Arpan Zamora MD Unavailable Victoria Connolly MD PhD Unavailable [phone] Allergies Active Allergy Reactions Criticality Noted Date [...] Cancer Staging:Clinical:Stage IB(cT1c, cN1, cM0, G2, ER+, PA+, HER2-) - Unsigned Abnormal mammogram 07/08/2023 Mass of left breast 05/23/2023 Abnormal mammogram of left breast 05/23/2023 Encounters Date Type Department Care Team Description 06/04/2024 8:40 AM CDT Office Visit [facility] Advanced [facility] Radiation Oncology [facility] [place] [address] Gertrude Marquez PA Malignant neoplasm of upper-outer quadrant of left breast in female, estrogen receptor positive (HCC) 04/26/2024 Orders Only [facility] Oncology [address] [place] [address] Arpan Zamora MD 04/11/2024 9:30 AM CHIEF SPECIALIST LEED Office Visit [facility] Oncology [address] [facility] [address] [place] [address] Arpan Zamora MD Malignant neoplasm of central portion of left breast in female, estrogen receptor positive (HCC) (Primary Dx); care home (current) use of aromatase inhibitors; Malignant neoplasm [...] on file Legal Sex Female 2:40 PM CHIEF SPECIALIST LEED Gender Identity Not on file Sexual Orientation Not on file Obstetrics History Last Filed Vital Signs Vital Sign Reading Time Taken Comments Blood Pressure 159/130 04/11/2024 9:26 AM CHIEF SPECIALIST LEED Pulse 62 04/11/2024 9:26 AM CHIEF SPECIALIST LEED Temperature 36.9 C (98.5 F) 04/11/2024 9:26 AM CHIEF SPECIALIST LEED Respiratory Rate 16 04/11/2024 9:26 AM CHIEF SPECIALIST LEED Oxygen Saturation 96% 04/11/2024 9:26 AM CHIEF SPECIALIST LEED Inhaled Oxygen Concentration - - Weight 99.8 kg (220 lb 1.6 oz) 06/04/2024 8:35 A M CDT Height 165.1 cm (5' 5 ) 03/22/2024 8:36 AM CHIEF SPECIALIST LEED Body Mass Index 36.63 03/22/2024 8:36 AM CHIEF SPECIALIST LEED Plan of Treatment Health Maintenance Due Date [...] Discontinued 025 Medical Devices Implanted Type Area Pm Technician Device Identifier Shelf Expiration Date Model / Serial / Lot Bard Peripheral Vascular Ultraclip Bard 17ga 10cm 2 Trigger Permanent Ultrasound [id number] - [id number] Implanted:Qty: 1 on 05/25/2023 at [facility] Left: Breast Bard Peripheral Vascular [id number] / / [employer] [place] 20ga 7.5cm 2 Part Stabilizer Repositionable Depth Uday [id number] - [id number] Implanted:Qty: 1 on 08/05/2023 at [facility] [employer] [id number] 12/31/2027 [id number] / / [id number] Procedures Procedure Name Priority Date/Time Associated Diagnosis Comments DEXA AXIAL SKELETON BONE DENSITY 1 OR MORE SITES Schedule Routine, Read Routine (OP Routine) 04/25/2024 2:16 PM CHIEF SPECIALIST LEED DIAGNOSTIC MAMMOGRAM BILATERAL W MIGUEL Schedule Routine, Read Routine (OP Routine) 03/22/2024 9:46 AM CHIEF SPECIALIST LEED Malignant neoplasm of upper-outer quadrant of left breast in female, estrogen receptor positive (HCC) from Last 3 Months or Most Recently Relevant to Health Maintenance Results * Dexa Axial Skeleton Bone Density 1 or 2 Site (04/25/2024 2:16 PM CHIEF SPECIALIST LEED) Anatomical Region Laterality Modality Body N/A Radiographic Siobhan ging us Arpan Zamora MD IMG DXA PROCEDURE S Final Result * Diagnostic Mammogram Bilateral W Miguel (03/22/2024 9:46 AM CHIEF SPECIALIST LEED) Anatomical Region Laterality Modality Breast Bilateral Mammography 03/22/2024 10:2 2 AM CHIEF SPECIALIST LEED Impressions 03/22/2024 10:22 AM CHIEF SPECIALIST LEED 1. Post breast conservation therapy changes within [...] Papito Armstrong MD Narrative 03/22/2024 10:22 AM CHIEF SPECIALIST LEED EXAMINATION: BILATERAL DIGITAL DIAGNOSTIC MAMMOGRAM INCLUDING CAD [...] RIGHT breast was performed by a trained sportspersons and by Dr. Armstrong. BREAST PARENCHYMAL COMPOSITION: [...] RIGHT breast was performed by a trained sportspersons and by Dr. Armstrong. BREAST PARENCHYMAL COMPOSITION: [...] to Health Maintenance Insurance MEDICARE [facility] MEDICARE SUPPLEMENT MEDICARE [facility] MEDICARE SUPPLEMENT Care Teams Blood Bank Business Manager Relationship Specialty Start Date End Date Jayashree Alan MD [address] [place] [address] PCP - General Internal Medicine 04/18/23 Arpan Zamora MD [address] [place] [address] Consulting Physician Medical Oncology 08/19/23 Victoria Connolly MD PhD [address] [facility] [address] [place] [address] Radiation Oncologist Radiation Oncology 10/10/23
== END 2024-07-09 08:47 | disposition home or self-care (01) ==
LOC: CHSIMG 08:47
PROVIDERS: PCP Internal Medicine; Visit Provider Internal Medicine Nephrology
DX: C50.919 Malignant neoplasm of unspecified site of unspecified female breast (principal); E83.52 Hypercalcemia; N18.31 Chronic kidney disease, stage 3a; R82.81 Pyuria
CPT/HCPCS: 78306; A9561

== ENCOUNTER 2024-07-26 10:55 | Outpatient (CLI) | payer MEDICARE, SELFPAY ==
--- OUTSIDE RECORDS SUMMARY | 2024-07-26 10:59 | XMS_ITS | Clinical Summary ---
Author Organization [place] [id number] [facility] Address [address] [place] [address] Care Team Providers Care Automation Lead Name Role Phone Jayashree Alan MD Primary Care Provider + [phone] Arpan Zamora MD Unavailable Victoria Connolly MD PhD Unavailable [phone] Allergies Active Allergy Reactions Criticality Noted Date [...] Cancer Staging:Clinical:Stage IB(cT1c, cN1, cM0, G2, ER+, MS+, HER2-) - Unsigned Abnormal mammogram 07/08/2023 Mass of left breast 05/23/2023 Abnormal mammogram of left breast 05/23/2023 Encounters Date Type Department Care Team Description 07/11/2024 Telephone [facility] Oncology [address] [facility] Floor [address] [place] [address] Mis Travis, RN apt cancellation 07/10/2024 Orders Only [facility] Oncology [address] [place] [phone] Mis Travis, RN Malignant neoplasm of central portion of left breast in female, estrogen receptor positive (HCC) (Primary Dx); 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 Radiation Oncology [facility] [place] [address] Gertrude Marquez PA Malignant neoplasm of upper-outer [...] on file Legal Sex Female 2:40 PM PRODUCT OPERATIONS ASSOCIATE Gender Identity Not on file Sexual Orientation Not on file Obstetrics History Last Filed Vital Signs Vital Sign Reading Time Taken Comments Blood Pressure 159/130 04/11/2024 9:26 AM PRODUCT OPERATIONS ASSOCIATE Pulse 62 04/11/2024 9:26 AM PRODUCT OPERATIONS ASSOCIATE Temperature 36.9 C (98.5 F) 04/11/2024 9:26 AM PRODUCT OPERATIONS ASSOCIATE Respiratory Rate 16 04/11/2024 9:26 AM PRODUCT OPERATIONS ASSOCIATE Oxygen Saturation 96% 04/11/2024 9:26 AM PRODUCT OPERATIONS ASSOCIATE Inhaled Oxygen Concentration - - Weight 99.8 kg (220 lb 1.6 oz) 06/04/2024 8:35 A M CDT Height 165.1 cm (5' 5 ) 03/22/2024 8:36 AM PRODUCT OPERATIONS ASSOCIATE Body Mass Index 36.63 03/22/2024 8:36 AM PRODUCT OPERATIONS ASSOCIATE Plan of Treatment Health Maintenance Due Date Last Done Comments Colon Cancer Screening-Colonoscopy 1950 Depression Screening 1950 Hepatitis C Screening 1948 Hepatitis B Screening 1966 Zoster Vaccine (1 of 2) 11/11/1967 Well Visit 65+ 2013 Covid-19 Vaccine (7 2023-2 5 season) 2023 12/07/2022, 01/13/2022, 07/24/2021, Additional history exists Fall Risk Assessment 09/11/2024 09/12/2023, 08/05/19 Influenza Vaccine (Season Ended) 2024 12/07/2022, 01/13/2022, 11/07/2019, Additional history exists Osteoporosis Screening-Bone Density Scan 04/25/2026 04/25/2024 DTaP/Tdap/Td Vaccine (2 - Td or Tdap) 09/01/2032 09/01/2022 Pneumococcal vaccine 65+ Completed 03/24/2018, 09/05 Breast Cancer Screening-Mammogram Discontinued 025 Medical Devices Implanted Type Area Block Cuber Device Identifier Shelf Expiration Date Model / Serial / Lot Bard Peripheral Vascular Ultraclip Bard 17ga 10cm 2 Trigger Permanent Ultrasound [id number] - [id number] Implanted:Qty: 1 on 05/25/2023 at [facility] Left: Breast Bard Peripheral Vascular [id number] / / [employer] [place] 20ga 7.5cm 2 Part Stabilizer Repositionable Depth Uday [id number] - [id number] Implanted:Qty: 1 on 08/05/2023 at [facility] [employer] [id number] 12/31/2027 [id number] / / [id number] Procedures Procedure Name Priority Date/Time Associated Diagnosis Comments DEXA AXIAL SKELETON BONE DENSITY 1 OR MORE SITES Schedule Routine, Read Routine (OP Routine) 04/25/2024 2:16 PM PRODUCT OPERATIONS ASSOCIATE DIAGNOSTIC MAMMOGRAM BILATERAL W MIGUEL Schedule Routine, Read Routine (OP Routine) 03/22/2024 9:46 AM PRODUCT OPERATIONS ASSOCIATE Malignant neoplasm of upper-outer quadrant of left breast in female, estrogen receptor positive (HCC) from Last 3 Months or Most Recently Relevant to Health Maintenance Results * Dexa Axial Skeleton Bone Density 1 or 2 Site (04/25/2024 2:16 PM PRODUCT OPERATIONS ASSOCIATE) Anatomical Region Laterality Modality Body N/A Radiographic Siobhan ging us Arpan Zamora MD IMG DXA PROCEDURE S Final Result * Diagnostic Mammogram Bilateral W Miguel (03/22/2024 9:46 AM PRODUCT OPERATIONS ASSOCIATE) Anatomical Region Laterality Modality Breast Bilateral Mammography 03/22/2024 10:2 2 AM PRODUCT OPERATIONS ASSOCIATE Impressions 03/22/2024 10:22 AM PRODUCT OPERATIONS ASSOCIATE 1. Post breast conservation therapy changes [...] Papito Armstrong MD Narrative 03/22/2024 10:22 AM PRODUCT OPERATIONS ASSOCIATE EXAMINATION: BILATERAL DIGITAL DIAGNOSTIC MAMMOGRAM INCLUDING [...] RIGHT breast was performed by a trained bevel face stoner and polisher and by Dr. Armstrong. BREAST PARENCHYMAL COMPOSITION: [...] RIGHT breast was performed by a trained bevel face stoner and polisher and by Dr. Armstrong. BREAST PARENCHYMAL COMPOSITION: [...] plan. Electronically signed by: Papito Armstrong MD us Tamar Prakash MD PhD IMG MAMMO PROCEDURES Final Result from Last 3 Months or Most Recently Relevant to Health Maintenance Insurance MEDICARE [facility] MEDICARE SUPPLEMENT MEDICARE [facility] MEDICARE SUPPLEMENT Care Teams Automation Lead Relationship Specialty Start Date End Date Jayashree Alan MD [address] [place] [address] PCP - General Internal Medicine 04/18/23 Arpan Zamora MD [address] [place] [address] Consulting Physician Medical Oncology 08/19/23 Victoria Connolly MD PhD [address] [facility] [address] [place] [address] Radiation Oncologist Radiation Oncology 10/10/23
--- OUTSIDE RECORDS SUMMARY | 2024-07-26 10:59 | XMS_ITS ---
Author Organization [facility] [address] [facility] Address [address] [place] [address] Care Team Providers Care Machine Operator Slitter Technician Name Role Phone Jayashree Alan MD Primary Care Provider + [phone] Arpan Zamora MD Unavailable Victoria Connolly MD PhD Unavailable [phone] Active Problems Problem Noted Date Diagnosed Date Malignant neoplasm of centra l portion of left breast in female, estrogen receptor positive 08/05/2023 Cancer Staging:Clinical:Stage IB(cT1c, cN1, cM0, G2, ER+, [place]+, HER2-) - Unsigned Abnormal mammogram 07/08/2023 Mass [...]
--- OUTSIDE RECORDS SUMMARY | 2024-07-26 10:59 | XMS_ITS | Encounter Summary ---
Author Organization [facility] Address [address] [place] [address] Phone Care Team Providers Care Certified Real Estate Appraiser Name Role Phone Jayashree Alan MD Primary Care Provider + [phone] Arpan Zamora MD Unavailable Victoria Connolly MD PhD Unavailable [phone] Encounter Details Date Type Department Care Team (Latest Contact Info) Description 03/02/2022 Orders Only [facility] Scanning, Provider Social History Tobacco Use Types Packs/Day Years Used Date Smoking Tobacco: Never Assessed Comments Unknown Sex and Gender Information Value Date Recorded Sex Assigned at Not on file Legal Sex Female 2:40 PM TELEGRAPH LINEMAN Gender Identity Not on file Sexual Orientation [...] on filedocumented in this encounter Care Teams Certified Real Estate Appraiser Relationship Specialty Start Date End Date Jayashree Alan MD [address] [place] [address] PCP - General Internal Medicine 04/18/23 Arpan Zamora MD [address] [place] [address] Consulting Physician Medical Oncology 08/19/23 Victoria Connolly MD PhD [address] [facility] [address] [place] [address] Radiation Oncologist Radiation Oncology 10/10/23 documented as of this encounter
--- OUTSIDE RECORDS SUMMARY | 2024-07-26 10:59 | XMS_ITS | Clinical Summary ---
Author Organization [facility] Address [address] [place] [address] Care Team Providers Care Family Preservation Officer Name Role Phone Jayashree Alan MD Primary Care Provider [phone] Source Comments [facility],non-owned Affiliates and Associated Physician Practices is amultiple site organization consisting of ambulatory clinics and hospital sitesin [place], [place], [place]. This disclosure is being madepursuant to the Care Everywhere program and may not contain all information available regarding this patient. Last updated 17.[facility] [employer] Allergies Active Allergy Reactions Criticality Noted Date [...] on file Legal Sex Female 9:37 AM EVALUATION ADVISOR Gender Identity Not on file Sexual Orientation Not on file Last Filed Vital Signs Vital Sign Reading Time Taken Comments Blood Pressure 142/98 04/28/2016 9:54 AM EVALUATION ADVISOR Pulse 88 04/28/2016 9:54 AM EVALUATION ADVISOR Temperature 36.8 C (98.3 F) 04/28/2016 9:54 AM EVALUATION ADVISOR Respiratory Rate 16 04/28/2016 9:54 AM EVALUATION ADVISOR Oxygen Saturation 96% 04/28/2016 9:54 AM EVALUATION ADVISOR Inhaled Oxygen Concentration - - Weight 90.7 kg (200 lb) 04/28/2016 9:54 AM EVALUATION ADVISOR Height 166.4 cm (5' 5.5 ) 04/28/2016 9:54 AM EVALUATION ADVISOR Body Mass Index 32.78 04/28/2016 9:54 AM EVALUATION ADVISOR Plan of Treatment Health Maintenance Due Date [...] patient's age to complete this topic Insurance [employer] MEDICARE MEDICARE Care Teams Family Preservation Officer Relationship Specialty Start Date End Date Jayashree Alan MD PCP - General Internal Medicine 04/28/16
--- OUTSIDE RECORDS SUMMARY | 2024-07-26 10:59 | XMS_ITS | Referral Summary ---
Author Organization [place] [address] [facility] Address [address] [place] [address] Care Team Providers Care Power Superintendent Name Role Phone Jayashree Alan MD Primary Care Provider + [phone] Arpan Zamora MD Unavailable Victoria Connolly MD PhD Unavailable Encounters Date Type Department Care Team Description 07/11/2024 Telephone [facility] Oncology [address] [facility] Floor [address] [place] [address] Mis Travis, RN apt cancellation 07/10/2024 Orders Only [facility] Oncology [address] [place] [address] Mis Trvais, RN Malignant neoplasm of central portion of left breast in female, estrogen receptor positive (HCC) (Primary Dx); [facility] (current) use of aromatase inhibitors 06/04/2024 8:40 AM CDT Office Visit [facility] Radiation Oncology [facility] [place] [address] Gertrude Marquez PA Malignant neoplasm [...] on file Legal Sex Female 2:40 PM RESIDENCE LEASING AGENT Gender Identity Not on file Sexual Orientation Not on file Last Filed Vital Signs Vital Sign Reading Time Taken Comments Blood Pressure 159/130 04/11/2024 9:26 AM RESIDENCE LEASING AGENT Pulse 62 04/11/2024 9:26 AM RESIDENCE LEASING AGENT Temperature 36.9 C (98.5 F) 04/11/2024 9:26 AM RESIDENCE LEASING AGENT Respiratory Rate 16 04/11/2024 9:26 AM RESIDENCE LEASING AGENT Oxygen Saturation 96% 04/11/2024 9:26 AM RESIDENCE LEASING AGENT Inhaled Oxygen Concentration - - Weight 99.8 kg (220 lb 1.6 oz) 06/04/2024 8:35 A M CDT Height 165.1 cm (5' 5 ) 03/22/2024 8:36 AM RESIDENCE LEASING AGENT Body Mass Index 36.63 03/22/2024 8:36 AM RESIDENCE LEASING AGENT Plan of Treatment Not on file Medical Devices Implanted Type Area Floor Technician Device Identifier Shelf Expiration Date Model / Serial / Lot Bard Peripheral Vascular Ultraclip Bard 17ga 10cm 2 Trigger Permanent Ultrasound [id number] - [id number] Implanted:Qty: 1 on 05/25/2023 at [facility] Left: Breast Bard Peripheral Vascular [id number] / / [employer] [place] 20ga 7.5cm 2 Part Stabilizer Repositionable Depth Uday [id number] - [id number] Implanted:Qty: 1 on 08/05/2023 at [facility] [employer] [id number] 12/31/2027 [id number] / / [id number] Procedures Procedure Name Priority Date/Time Associated Diagnosis Comments DEXA AXIAL SKELETON BONE DENSITY 1 OR MORE SITES Schedule Routine, Read Routine (OP Routine) 04/25/2024 2:16 PM RESIDENCE LEASING AGENT DIAGNOSTIC MAMMOGRAM BILATERAL W MIGUEL Schedule Routine, Read Routine (OP Routine) 03/22/2024 9:46 AM RESIDENCE LEASING AGENT Malignant neoplasm of upper-outer quadrant of left breast in female, estrogen receptor positive (HCC) from Last 3 Months or Most Recently Relevant to Health Maintenance Results * Dexa Axial Skeleton Bone Density 1 or 2 Site (04/25/2024 2:16 PM RESIDENCE LEASING AGENT) Anatomical Region Laterality Modality Body N/A Radiographic Siobhan ging Arpan Zamora MD IMG DXA PROCEDURE S Final Result * Diagnostic Mammogram Bilateral W Miguel (03/22/2024 9:46 AM RESIDENCE LEASING AGENT) Anatomical Region Laterality Modality Breast Bilateral Mammography 03/22/2024 10:2 2 AM RESIDENCE LEASING AGENT Impressions 03/22/2024 10:22 AM RESIDENCE LEASING AGENT 1. Post breast conservation therapy changes within [...] Papito Armstrong MD Narrative 03/22/2024 10:22 AM RESIDENCE LEASING AGENT EXAMINATION: BILATERAL DIGITAL DIAGNOSTIC MAMMOGRAM INCLUDING CAD [...] RIGHT breast was performed by a trained music historian and by Dr. Armstrong. BREAST PARENCHYMAL COMPOSITION: [...] RIGHT breast was performed by a trained music historian and by Dr. Armstrong. BREAST PARENCHYMAL COMPOSITION: [...] Recently Relevant to Health Maintenance Insurance MEDICARE [facility] Address: [address] [address] [place] [address] [facility] MEDICARE SUPPLEMENT MEDICARE [employer] MEDICARE SUPPLEMENT Care Teams Power Superintendent Relationship Specialty Start Date End Date Jayashree Alan MD [address] [place] [address] PCP - General Internal Medicine 04/18/23 Arpan Zamora MD [address] [place] [address] Consulting Physician Medical Oncology 08/19/23 Victoria Connolly MD PhD [address] [facility] [address] [place] [address] Radiation Oncologist Radiation Oncology 10/10/23
[2024-07-26 11:15] LABS: Hematocrit 42.2 % (35.0-42.0); Hemoglobin 13.6 g/dL (11.7-13.8); Mean Corpuscular HGB Conc 32.2 g/dL (32-36); Mean Corpuscular Hemoglobin 28.9 pg (27.0-31.0); Mean Corpuscular Volume 89.6 fL (78.0-102.0); Mean Platelet Volume 12.2 fl (9.2-11.8); Platelet Count Result 117 K/mm3 (150-420); Red Blood Count 4.71 M/mm3 (4.20-5.40); Red Cell Distribution Width 13.7 % (11.6-14.4); White Blood Count 7.2 K/mm3 (4.8-10.8)
[2024-07-26 11:16] LABS: Add Urine Microscopic? YES; Bilirubin Urine 1+ (Negative); Blood Urine 3+ (Negative); Glucose Urine UA Negative (Negative); Ketones Urine Negative (Negative); Leukocyte Esterase Ur 1+ (Negative); Nitrate Urine Negative (Negative); Protein Urine 1+ (Negative); Specific Grav Ur 1.025 (1.010-1.020); Urobilinogen Urine 0.2 mg/dL (0.2-1.0)
[2024-07-26 11:26] LABS: Creatinine Urine 162.7 mg/dL
[2024-07-26 11:27] LABS: Creatinine Urine 165.8 mg/dL; Total Protein Urine Random 48 mg/dL; Ur Ttl Prot Creatinine Ratio 0.29 mg/mg (0-0.20)
[2024-07-26 11:31] LABS: MALB Creatinine Ratio 78.7 mg/g (0-30)
[2024-07-26 11:33] LABS: Hemoglobin A1C 5.4 % (<5.7)
[2024-07-26 11:36] LABS: Alanine Aminotransferase 17 U/L (6-35); Albumin Level 3.9 g/dL (3.5-5.1); Alkaline Phosphatase 95 U/L (38-126); Anion Gap 3 mmol/L (4-12); Aspartate Amino Transferase 21 U/L (14-36); Bilirubin,Total 1.5 mg/dL (0.2-1.3); Blood Urea Nitrogen 17 mg/dL (7-17); Calcium 10.3 mg/dL (8.4-10.2); Carbon Dioxide 30 mmol/L (22-30); Chloride 105 mmol/L (98-107); Cholesterol 153 mg/dL (0-200); Estimated Glomerular Filt Rate 49; Glucose 106 mg/dL (65-110); HDL Direct 41 mg/dL; LDL Cholesterol Calculated 93 mg/dL (<130); Osmolality Calculated 287 mOsm/kg (285-295); Phosphorus 3.3 mg/dL (2.5-4.5); Sodium 138 mmol/L (137-145); Total Protein 6.2 g/dL (6.3-8.2); Triglycerides 95 mg/dL (<150)
[2024-07-26 11:37] LABS: Color Urine Dark Amber (Yellow)
[2024-07-26 11:39] LABS: Appearance Urine Cloudy (Clear)
[2024-07-26 11:40] LABS: Bacteria Urine Rare /hpf; RBC Urine 51-75 /hpf (0-2); Squamous Epithelial Cell Urine Rare /hpf (Few)
[2024-07-26 11:56] LABS: Free T3 2.41 pg/mL (2.18-3.98)
[2024-07-26 12:07] LABS: Thyroid Stimulating Hormone 0.707 uIU/mL (0.465-4.680)
[2024-07-27 14:04] LABS: Parathyroid Intact 42 pg/mL (16-77)
== END 2024-07-26 10:56 | disposition home or self-care (01) ==
PROVIDERS: PCP Internal Medicine; Visit Provider Internal Medicine Nephrology
DX: N18.2 Chronic kidney disease, stage 2 (mild) (principal); I10 Essential (primary) hypertension; R73.01 Impaired fasting glucose; C50.911 Malignant neoplasm of unspecified site of right female breast; E21.0 Primary hyperparathyroidism
CPT/HCPCS: 36415; 80053; 80061; 81001; 82043; 82570; 83036; 83970; 84100; 84156; 84439; 84443; 84481; 85027

== ENCOUNTER 2024-09-26 10:51 | Outpatient (CLI) | payer MEDICARE, SELFPAY ==
--- OUTSIDE RECORDS SUMMARY | 2024-09-26 11:02 | XMS_ITS | Clinical Summary ---
Author Organization [facility] Address [address] [facility] [place] [address] Care Team Providers Care Manager Of Organizational Development Name Role Phone Jayashree Alan MD Primary Care Provider [phone] Source Comments [facility],non-owned Affiliates and Associated Physician Practices is amultiple site organization consisting of ambulatory clinics and hospital sitesin [place] and [place]. This disclosure is being madepursuant to the Care Everywhere program and may not contain all information available regarding this patient. Last updated 17.[facility] [employer] Allergies Active Allergy Reactions Criticality Noted Date [...] on file Legal Sex Female 9:37 AM TIE MAN Gender Identity Not on file Sexual Orientation Not on file Last Filed Vital Signs Vital Sign Reading Time Taken Comments Blood Pressure 142/98 04/28/2016 9:54 AM TIE MAN Pulse 88 04/28/2016 9:54 AM TIE MAN Temperature 36.8 C (98.3 F) 04/28/2016 9:54 AM TIE MAN Respiratory Rate 16 04/28/2016 9:54 AM TIE MAN Oxygen Saturation 96% 04/28/2016 9:54 AM TIE MAN Inhaled Oxygen Concentration - - Weight 90.7 kg (200 lb) 04/28/2016 9:54 AM TIE MAN Height 166.4 cm (5' 5.5) 04/28/2016 9:54 AM TIE MAN Body Mass Index 32.78 04/28/2016 9:54 AM TIE MAN Plan of Treatment Health Maintenance Due Date [...] VACCINE (1 - 2023-2 5 season) 2023 Respiratory Syncytial Virus (RSV) Vaccine Pt: or over 60 yrs (1 - 1-dose 75+ series) 11/11/2023 DEPRESSION SCREENING 03/07/2024 INFLUENZA VACCINE (#1) 2024 HEPATITIS B VACCINE Aged Out No [...] patient's age to complete this topic Insurance Remote [employer] MEDICARE MEDICARE Care Teams Manager Of Organizational Development Relationship Specialty Start Date End Date Jayashree Alan MD PCP - General Internal Medicine 04/28/16
--- OUTSIDE RECORDS SUMMARY | 2024-09-26 11:02 | XMS_ITS ---
Author Organization [place] [id number] [facility] Address [address] [place] [address] Care Team Providers Care Almond Paste Mixer Name Role Phone Jayashree Alan MD Primary Care Provider + [phone] Arpan Zamora MD Unavailable Victoria Connolly MD PhD Unavailable [phone] Active Problems Problem Noted Date Diagnosed Date Malignant neoplasm of centra l portion of left breast in female, estrogen receptor positive 08/05/2023 Cancer Staging:Clinical:Stage IB(cT1c, cN1, cM0, G2, ER+, [place]+, HER2-) - Unsigned Abnormal mammogram 07/08/2023 Mass [...]
--- OUTSIDE RECORDS SUMMARY | 2024-09-26 11:02 | XMS_ITS | Encounter Summary ---
Author Organization [facility] Address [address] [place] [address] Phone Care Team Providers Care Motor Vehicle Lecturer Name Role Phone Jayashree Alan MD Primary Care Provider + [phone] Arpan Zamora MD Unavailable Victoria Connolly MD PhD Unavailable [phone] Encounter Details Date Type Department Care Team (Latest Contact Info) Description 06/28/2024 Orders Only [facility] Scanning, Provider Social History Tobacco Use Types Packs/Day Years Used Date Smoking Tobacco: Never Smokeless Tobacco: Never AUDIT-C Answer Date Recorded Q1: How often [...] on file Legal Sex Female 2:40 PM BUSINESS EDUCATION PROFESSOR Gender Identity Not on file Sexual Orientation Not on file documented as of this encounter Plan of Treatment Not on file documented as of this encounter Procedures Procedure Name Priority Date/Time Associated Diagnosis Comments SCAN - RADIOLOGY/IMAGING 06/28/2024 documented in this encounter Results * SCAN - RADIOLOGY/IMAGING (06/28/2024) Anatomical Region Laterality Modality Other us Provider Scanning Edited Result - Final documented in this encounter Visit Diagnoses Not on filedocumented in this encounter Care Teams Motor Vehicle Lecturer Relationship Specialty Start Date End Date Jayashree Alan MD [address] [place] [address] PCP - General Internal Medicine 04/18/23 Arpan Zamora MD [address] [place] [address] Consulting Physician Medical Oncology 08/19/23 Victoria Connolly MD PhD [address] [facility] [address] [place] [address] Radiation Oncologist Radiation Oncology 10/10/23 documented as of this encounter
--- OUTSIDE RECORDS SUMMARY | 2024-09-26 11:02 | XMS_ITS | Encounter Summary ---
Author Organization [facility] Address [address] [place] [address] Phone Care Team Providers Care Clinical Trial Leader Name Role Phone Jayashree Alan MD Primary Care Provider + [phone] Arpan Zamora MD Unavailable Victoria Connolly MD PhD Unavailable [phone] Encounter Details Date Type Department Care Team (Latest Contact Info) Description 07/09/2024 Orders Only [facility] Scanning, Provider [...] on file Legal Sex Female 2:40 PM SERVICE WRITER ADVISOR Gender Identity Not on file Sexual Orientation Not on file documented as of this encounter Plan of Treatment Not on file documented as of this encounter Procedures Procedure Name Priority Date/Time Associated Diagnosis Comments SCAN - RADIOLOGY/IMAGING 07/09/2024 documented in this encounter Results * SCAN - RADIOLOGY/IMAGING (07/09/2024) Anatomical Region Laterality Modality Other us Provider Scanning Final Result documented in this encounter Visit Diagnoses Not on filedocumented in this encounter Care Teams Clinical Trial Leader Relationship Specialty Start Date End Date Jayashree Alan MD [address] [place] [address] PCP - General Internal Medicine 04/18/23 Arpan Zamora MD [address] [place] [address] Consulting Physician Medical Oncology 08/19/23 Victoria Connolly MD PhD [address] [facility] [address] [place] [address] Radiation Oncologist Radiation Oncology 10/10/23 documented as of this encounter
--- OUTSIDE RECORDS SUMMARY | 2024-09-26 11:02 | XMS_ITS | Clinical Summary ---
Author Organization [facility] [id number] [facility] Address [address] [place] [address] Care Team Providers Care Insulation Helper Name Role Phone Jayashree Alan MD Primary Care Provider + [phone] Arpan Zamora MD Unavailable Victoria Connolly MD PhD Unavailable [phone] Allergies Active Allergy Reactions Criticality Noted Date [...] Encounters Date Type Department Care Team Description 08/01/2024 9:45 AM CDT Office Visit [facility] [address] [place] [phone] Arpan Zamora MD Menopausal symptoms (Primary Dx); Malignant neoplasm of central portion of left breast in female, estrogen receptor positive (HCC); [facility] (current) use of aromatase inhibitors 08/01/2024 8:45 AM CDT Lab [facility] Lab [address] [place] [phone] Malignant neoplasm of central portion of left breast in female, estrogen receptor positive (HCC) 08/01/2024 8:30 AM CDT Lab [facility] - Lab Collection [address] [place] [address] [address] [place] [address] Malignant neoplasm of central portion of left breast in female, estrogen receptor positive (HCC); [facility]FP (current) use of aromatase inhibitors 07/11/2024 Telephone [facility] [address] [place] [address] 8 [place] [phone] Mis Travis, RN apt cancellation 07/10/2024 Orders Only [facility] [address] [place] [address] Mis Travis, RN Malignant neoplasm of central portion of left breast in female, estrogen receptor positive (HCC) (Primary Dx); [facility] (current) use of aromatase inhibitors 07/09/2024 Orders Only [facility] Scanning, Provider 06/28/2024 Orders Only [facility] Scanning, Provider from Last 3 Months Immunizations Immunization Administration [...] on file Legal Sex Female 2:40 PM BLIND ESCORT Gender Identity Not on file Sexual Orientation Not on file Obstetrics History Last Filed Vital Signs Vital Sign Reading Time Taken Comments Blood Pressure 157/79 08/01/2024 9:16 AM CDT Pulse 63 08/01/2024 9:16 AM CDT Temperature 36.8 C (98.2 F) 08/01/2024 9:16 AM CDT Respiratory Rate 16 08/01/2024 9:16 AM CDT Oxygen Saturation 97% 08/01/2024 9:16 AM CDT Inhaled Oxygen Concentration - - Weight 96.6 kg (213 lb) 08/01/2024 9:16 AM CDT Height 165.1 cm (5' 5) 03/22/2024 8:36 AM BLIND ESCORT Body Mass Index 35.45 03/22/2024 8:36 AM BLIND ESCORT Plan of Treatment Health Maintenance Due Date Last Done Comments Colon Cancer Screening-Colonoscopy 1950 Depression Screening 1950 Hepatitis C Screening 1950 Hepatitis B Screening 1966 Zoster Vaccine (1 of 2) 11/11/1967 Well Visit 65+ 2013 Covid-19 Vaccine (2023-2 5 season) 2023 12/07/2022, 01/13/2022, 07/24/2021, Additional history exists Fall Risk Assessment 09/11/2024 09/12/2023, 08/05/19 24 Influenza Vaccine (#1) 2024 , 01/13/2022, 11/07/2019, Additional history exists Osteoporosis Screening-Bone Density Scan 04/25/2026 04/25/2024 DTaP/Tdap/Td Vaccine (2 - Td or Tdap) 09/01/2032 09/01/2022 Pneumococcal vaccine 65+ Completed 03/24/2018, 09/05 Breast Cancer Screening-Mammogram Discontinued 025 Medical Devices Implanted Type Area Birdcage Assembler Device Identifier Shelf Expiration Date Model / Serial / Lot Bard Peripheral Vascular Ultraclip Bard 17ga 10cm 2 Trigger Permanent Ultrasound [id number] - [id number] Implanted:Qty: 1 on 05/25/2023 at [facility] Left: Breast Bard Peripheral Vascular [id number] / / [employer] [place] 20ga 7.5cm 2 Part Stabilizer Repositionable Depth Uday [id number] - [id number] Implanted:Qty: 1 on 08/05/2023 at [facility] [employer] [id number] 12/31/2027 [id number] / / [id number] Procedures Procedure Name Priority Date/Time Associated Diagnosis Comments EGFR Routine 08/01/2024 8:26 AM CDT Malignant neoplasm of central portion of left breast in female, estrogen receptor positive (HCC) DIFFERENTIAL AUTO Routine 08/01/2024 8:2 6 AM CDT Malignant neoplasm of central portion of left breast in female, estrogen receptor positive (HCC) CBC WITH AUTO DIFFERENTIAL Routine 08/01/2024 8:26 AM CDT Malignant neoplasm of central portion of left breast in female, estrogen receptor positive (HCC) COMPREHENSIVE METABOLIC PANEL Routine 08/01/2024 8:26 AM CDT Malignant neoplasm of central portion of left breast in female, estrogen receptor positive (HCC) SCAN - RADIOLOGY/IMAGING 07/09/2024 SCAN - RADIOLOGY/IMAGING 06/28/2024 DEXA AXIAL SKELETON BONE DENSITY 1 OR MORE SITES Schedule Routine, Read Routine (OP Routine) 04/25/2024 2:16 PM BLIND ESCORT DIAGNOSTIC MAMMOGRAM BILATERAL W MIGUEL Schedule Routine, Read Routine (OP Routine) 03/22/2024 9:46 AM BLIND ESCORT Malignant neoplasm of upper-outer quadrant of left breast in female, estrogen receptor positive (HCC) from Last 3 Months or Most Recently Relevant to Health Maintenance Results * (ABNORMAL) eGFR (08/01/2024 8:26 AM CDT) eGFR 55(L) >=60 mL/min/1. 73 m2 Comment: Interpretive Data Reference Interval Normal >/= 90 mL/min/1.73m2 Mildly decreased* 60 - 89 mL/min/1.73m2 Mildly to moderately decreased 45 - 59 mL/min/1.73m2 Moderately to severely decreased 30 - 44 mL/min/1.73m2 Severely decreased 15 - 29 mL/min/1.73m2 Kidney Failure < 15 mL/min/1.73m2 *Relative to young adult level Estimated glomerular filtration rate is determined by the 2020 CKD-EPI equation recommended by the National Kidney Foundation (A Unifying Approach to GFR Estimation: Recommendations of the NKF-ASK Task Force on Reassessing the Inclusion of Race in Diagnosing Kidney Disease, JASN 2020). The CKD-EPI equation should not be used for patients with unstable renal function and has not been validated in children and those over 70. Current interpretive data was last reviewed 2021. Blood 08/01/2024 8:26 AM CDT 08/01/2024 8:32 AM CDT us Arpan Zamora MD LAB BLOOD ORDERAB LES Final Result [facility] [place] [address] * Differential, auto (08/01/2024 8:26 AM CDT) Neutrophil abs 3.25 1.50 - 6.50 K/cumm Comment:Testing performed by : [facility], [address] [place] [phone] Lymphocyte abs 1.16 0.80 - 3.30 K/cumm JOHN SANDOVAL Comment:Testing performed by : [facility], [address] [place] [phone] Monocyte abs 0.42 0.20 - 0.80 K/cumm JOHN SANDOVAL Comment:Testing performed by : [facility], [address] [place] [phone] Eosinophil abs 0.19 0.00 - 0.50 K/cumm JOHN SANDOVAL Comment:Testing performed by : [facility], [address] [place] [phone] Basophil abs 0.05 0.00 - 0.10 K/cumm JOHN BJ Comment:Testing performed by : [facility], [address] [place] [phone] Neutrophil pct 64.2 % JOHN SANDOVAL Comment: Interpretive Data Percent cell count reference ranges are not reported, since discordance with absolute values may lead to misinterpretation of CBC data. Current Interpretive Data was last revised on 2017. Testing performed by: [facility], [address] [place] [phone] Lymphocyte pct 23.0 % [facility] Comment: Interpretive Data Percent cell count reference ranges are not reported, since discordance with absolute values may lead to misinterpretation of CBC data. Current Interpretive Data was last revised on 2017. Testing performed by: [facility], [address] [place] [phone] Monocyte pct 8.2 % [facility] Comment: Interpretive Data Percent cell count reference ranges are not reported, since discordance with absolute values may lead to misinterpretation of CBC data. Current Interpretive Data was last revised on 2017. Testing performed by: [facility], [address] [place] [phone] Eosinophil pct 3.7 % [facility] Comment: Interpretive Data Percent cell count reference ranges are not reported, since discordance with absolute values may lead to misinterpretation of CBC data. Current Interpretive Data was last revised on 2017. Testing performed by: [facility], [address] [place] [phone] Basophil pct 1.0 % [facility] Comment: Interpretive Data Percent cell count reference ranges are not reported, since discordance with absolute values may lead to misinterpretation of CBC data. Current Interpretive Data was last revised on 2017. Testing performed by: [facility], [address] [place] [phone] Blood 08/01/2024 8:26 AM CDT 08/01/2024 8:31 AM CDT us Arpan Zamora MD LAB BLOOD ORDERAB LES Final Result [facility] [place] [address] * CBC with auto differential (08/01/2024 8:26 AM CDT) WBC 5.07 3.80 - 9.90 K/cumm Comment:Testing performed by : [facility], [address] [place] [address] Hgb 13.2 11.9 - 15.5 g/dL CERNER BJ Comment:Testing performed by : [facility], [address] [place] [address] Hct 39.5 35.6 - 45.5 % CERNER BJ Comment:Testing performed by : [facility], [address] [place] [address] Plt 168 150 - 400 K/cumm CERNER BJ Comment:Testing performed by : [facility], [address] [place], [place] [phone] MPV 9.5 6.8 - 10.4 fL CERNER BJ Comment:Testing performed by : [facility], [address] [place] [address] RBC 4.51 3.90 - 5.20 M/cumm CERNER BJ Comment:Testing performed by : [facility], [address] [place] [address] MCV 87.7 81.3 - 96.4 fL CERNER BJ Comment:Testing performed by : [facility], [address] [place] [address] MCH 29.4 27.1 - 33.3 pg CERNER BJ Comment:Testing performed by : [facility], [address] [place] [address] MCHC 33.5 32.3 - 35.7 g/dL CERNER BJ Comment:Testing performed by : [facility], [address] [place] [address] RDW CV 14.5 11.1 - 14.9 % CERNER BJ Comment:Testing performed by : [facility], [address] [place] [address] NRBC abs 0.00 0.00 - 0.01 K/cumm CERNER BJ Comment:Testing performed by : [facility], [address] [place] [address] Blood 08/01/2024 8:26 AM CDT 08/01/2024 8:31 AM CDT Arpan Zamora MD LAB BLOOD ORDERAB LES Final Result [facility] [place] [address] * (ABNORMAL) Comprehensive metabolic panel (08/01/2024 8:26 AM CDT) Sodium 142 135 - 145 mmol/L Potassium, pl 4.8 3.3 - 4.9 mmol/L [facility] Chloride 107 97 - 110 mmol/L [facility] CO2 28 22 - 32 mmol/L [facility] Anion gap 7 2 - 15 mmol/L [facility] BUN 17 6 - 25 mg/dL [facility] Creatinine 1.06 0.60 - 1.10 mg/dL [facility] Glucose 132 70 - 199 mg/dL [facility] Comment: Interpretive Data Fasting glucose >/= 126 mg/dl is diagnostic for diabetes. Fasting is defined as no caloric intake for at least 8 hours. Fasting glucose between 100 mg/dl to 125 mg/dl is diagnostic of prediabetes. In a patient with classic symptoms of hyperglycemia or hyperglycemic crisis, a random glucose >/= 200 mg/dl is diagnostic for diabetes. In the absence of unequivocal hyperglycemia, results should be confirmed by repeat testing. The classification and Diagnosis of Diabetes Diabetes Care 2021; 46: S19-S40. Current interpretive data was last revised 2022. Calcium 10.9(H) 8.5 - 10.3 mg/dL [facility] Bilirubin, total 0.5 0.1 - 1.2 mg/dL [facility] Protein, pl 6.7 6.5 - 8.5 g/dL [facility] Albumin 4.1 3.5 - 5.0 g/dL [facility] Alk phos 107 40 - 130 Units/L [facility] ALT 21 7 - 45 Units/L [facility] AST 23 10 - 45 Units/L [facility] Blood 08/01/2024 8:26 AM CDT 08/01/2024 8:32 AM CDT us Arpan Zamora MD LAB BLOOD ORDERAB LES Final Result [facility] [place] [address] * SCAN - RADIOLOGY/IMAGING (07/09/2024) Anatomical Region Laterality Modality Other us Provider Scanning Final Result * SCAN - RADIOLOGY/IMAGING (06/28/2024) Anatomical Region Laterality Modality Other us Provider Scanning Edited Result - Final * Dexa Axial Skeleton Bone Density 1 or 2 Site (04/25/2024 2:16 PM BLIND ESCORT) Anatomical Region Laterality Modality Body N/A Radiographic Siobhan ging us Arpan Zamora MD IMG DXA PROCEDURE S Final Result * Diagnostic Mammogram Bilateral W Miguel (03/22/2024 9:46 AM BLIND ESCORT) Anatomical Region Laterality Modality Breast Bilateral Mammography 03/22/2024 10:2 2 AM BLIND ESCORT Impressions 03/22/2024 10:22 AM BLIND ESCORT 1. Post breast conservation therapy changes within [...] Papito Armstrong MD Narrative 03/22/2024 10:22 AM BLIND ESCORT EXAMINATION: BILATERAL DIGITAL DIAGNOSTIC MAMMOGRAM INCLUDING CAD [...] RIGHT breast was performed by a trained hose tester and by Dr. Armstrong. BREAST PARENCHYMAL COMPOSITION: [...] RIGHT breast was performed by a trained hose tester and by Dr. Armstrong. BREAST PARENCHYMAL COMPOSITION: [...] Recently Relevant to Health Maintenance Insurance MEDICARE [employer] MEDICARE SUPPLEMENT MEDICARE [employer] MEDICARE SUPPLEMENT Care Teams Insulation Helper Relationship Specialty Start Date End Date Jayashree Alan MD [address] [place] [address] PCP - General Internal Medicine 04/18/23 Arpan Zamora MD [address] [place] [address] Consulting Physician Medical Oncology 08/19/23 Victoria Connolly MD PhD [address] [facility] [address] [place] [address] Radiation Oncologist Radiation Oncology 10/10/23
--- OUTSIDE RECORDS SUMMARY | 2024-09-26 11:03 | XMS_ITS | Referral Summary ---
Author Organization [place] [id number] [facility] Address [address] [place] [address] Care Team Providers Care Motorcycle Sales Associate Name Role Phone Jayashree Alan MD Primary Care Provider + [phone] Arpan Zamora MD Unavailable Victoria Connolly MD PhD Unavailable [phone] Encounters Date Type Department Care Team Description 08/01/2024 8:30 AM CDT Lab [facility] - Lab Collection [address] [place] [address] Malignant neoplasm of central portion of left breast in female, estrogen receptor positive (HCC); exterminator helper termite (current) use of aromatase inhibitors 08/01/2024 8:45 AM CDT Lab [facility] Oncology Lab [address] [place] [phone] Malignant neoplasm of central portion of left breast in female, estrogen receptor positive (HCC) 08/01/2024 9:45 AM CDT Office Visit [facility] Oncology [address] [place] [phone] Arpan Zamora MD Menopausal symptoms (Primary Dx); Malignant neoplasm of central portion of left breast in female, estrogen receptor positive (HCC); exterminator helper termite (current) use of aromatase inhibitors 07/11/2024 Telephone [facility] Oncology [address] [place] [phone] Mis Travis RN apt cancellation 07/10/2024 Orders Only [facility] Oncology [address] [place] [phone] Mis Travis, RN Malignant neoplasm of central portion of left breast in female, estrogen receptor positive (HCC) (Primary Dx); exterminator helper termite (current) use of aromatase inhibitors 07/09/2024 Orders Only [facility] Scanning, Provider 06/28/2024 Orders Only [facility] Scanning, Provider from Last 3 Months Allergies Active Allergy [...] Cancer Staging:Clinical:Stage IB(cT1c, cN1, cM0, G2, ER+, [place]+, HER2-) - Unsigned Abnormal mammogram 07/08/2023 Mass [...] on file Legal Sex Female 2:40 PM ALLIANCES CONSULTANT Gender Identity Not on file Sexual Orientation [...] 165.1 cm (5' 5) 03/22/2024 8:36 AM ALLIANCES CONSULTANT Body Mass Index 35.45 03/22/2024 8:36 AM ALLIANCES CONSULTANT Plan of Treatment Not on file Medical Devices Implanted Type Area Brazer Induction Device Identifier Shelf Expiration Date Model / Serial / Lot Bard Peripheral Vascular Ultraclip Bard 17ga 10cm 2 Trigger Permanent Ultrasound [id number] - [id number] Implanted:Qty: 1 on 05/25/2023 at [facility] Left: Breast Bard Peripheral Vascular [id number] / / [employer] [place] 20ga 7.5cm 2 Part Stabilizer Repositionable Depth Uday [id number] - [id number] Implanted:Qty: 1 on 08/05/2023 at [facility] [employer] [id number] 12/31/2027 [id number] / / [id number] Procedures Procedure Name Priority Date/Time Associated Diagnosis [...] Read Routine (OP Routine) 04/25/2024 2:16 PM ALLIANCES CONSULTANT DIAGNOSTIC MAMMOGRAM BILATERAL W MIGUEL Schedule Routine, Read Routine (OP Routine) 03/22/2024 9:46 AM ALLIANCES CONSULTANT Malignant neoplasm of upper-outer quadrant of left breast in female, estrogen receptor positive (HCC) from Last 3 Months or Most Recently Relevant to Health Maintenance Results * (ABNORMAL) eGFR (08/01/2024 8:26 AM CDT) [facility] eGFR 55(L) >=60 mL/min/1. 73 m2 Comment: [...] MD LAB BLOOD ORDERAB LES Final Result [facility] Department [place] [address] * Differential, auto (08/01/2024 8:26 AM CDT) [facility] Neutrophil abs 3.25 1.50 - 6.50 K/cumm Comment:Testing performed by : [facility]e Lab, [address] [place] [phone] Lymphocyte abs 1.16 0.80 - 3.30 K/cumm JOHN BERGMAN Comment:Testing performed by : [facility], [address] [place] [phone] Monocyte abs 0.42 0.20 - 0.80 K/cumm [facility] Comment:Testing performed by : [facility], [address] [place] [phone] Eosinophil abs 0.19 0.00 - 0.50 K/cumm [facility] Comment:Testing performed by : [facility], [address] [place] [phone] Basophil abs 0.05 0.00 - 0.10 K/cumm [facility] Comment:Testing performed by : [facility], [address] [place] [phone] Neutrophil pct 64.2 % [facility] Comment: Interpretive Data Percent cell count reference ranges are not reported, since discordance with absolute values may lead to misinterpretation of CBC data. Current Interpretive Data was last revised on 2017. Testing performed by: [facility], [address] [place] [phone] Lymphocyte pct 23.0 % CERNER BJ Comment: Interpretive Data Percent cell count reference ranges are not reported, since discordance with absolute values may lead to misinterpretation of CBC data. Current Interpretive Data was last revised on 2017. Testing performed by: [facility], [address] [place] [phone] Monocyte pct 8.2 % [facility] Comment: Interpretive Data Percent cell count reference ranges are not reported, since discordance with absolute values may lead to misinterpretation of CBC data. Current Interpretive Data was last revised on 2017. Testing performed by: [facility], [address] [place] [phone] Eosinophil pct 3.7 % [facility] Comment: Interpretive Data Percent cell count reference ranges are not reported, since discordance with absolute values may lead to misinterpretation of CBC data. Current Interpretive Data was last revised on 2017. Testing performed by: [facility], [address] [place] [phone] Basophil pct 1.0 % [facility] Comment: Interpretive Data Percent cell count reference ranges are not reported, since discordance with absolute values may lead to misinterpretation of CBC data. Current Interpretive Data was last revised on 2017. Testing performed by: [facility], [address] [place] [address] Blood 08/01/2024 8:26 AM CDT 08/01/2024 8:31 AM CDT Arpan Zamora MD LAB BLOOD ORDERAB LES Final Result [facility] Department [place] [address] * CBC with auto differential (08/01/2024 8:26 AM CDT) WBC 5.07 3.80 - 9.90 K/cumm Comment:Testing performed by : [facility]e [facility], [address] [place] [address] Hgb 13.2 11.9 - 15.5 g/dL JOHN SANDOVAL Comment:Testing performed by : [facility]e [facility], [address] [place] [address] Hct 39.5 35.6 - 45.5 % CERDYLON SANDOVAL Comment:Testing performed by : [facility], [address] [place] [address] Plt 168 150 - 400 K/cumm JOHN SANDOVAL Comment:Testing performed by : [facility]e Lab, [address] [place] [address] MPV 9.5 6.8 - 10.4 fL CERDYLON BJ Comment:Testing performed by : [facility]e Lab, [address] [place] [address] RBC 4.51 3.90 - 5.20 M/cumm CERDYLON BJ Comment:Testing performed by : [facility]e Lab, [address] [place] [address] MCV 87.7 81.3 - 96.4 fL CERDYLON BJ Comment:Testing performed by : [facility], [address] [place] [address] MCH 29.4 27.1 - 33.3 pg [facility] Comment:Testing performed by : [facility], [address] [place] [phone] MCHC 33.5 32.3 - 35.7 g/dL JOHN [facility] Comment:Testing performed by : [facility]e Lab, [address] [place] [phone] RDW CV 14.5 11.1 - 14.9 % [facility] Comment:Testing performed by : [facility]e Lab, [address] [place] [phone] NRBC abs 0.00 0.00 - 0.01 K/cumm JOHN [facility] Comment:Testing performed by : [facility]e Lab, [address] [place] [phone] Blood 08/01/2024 8:26 AM CDT 08/01/2024 8:31 AM CDT Arpan Zamora MD LAB BLOOD ORDERAB LES Final Result [facility] Department [place] [address] * (ABNORMAL) Comprehensive metabolic panel (08/01/2024 8:26 AM CDT) Sodium 142 135 - 145 mmol/L Potassium, pl 4.8 3.3 - 4.9 mmol/L [facility] Chloride 107 97 - 110 mmol/L [facility] CO2 28 22 - 32 mmol/L [facility] Anion gap 7 2 - 15 mmol/L [facility] BUN 17 6 - 25 mg/dL [facility] Creatinine 1.06 0.60 - 1.10 mg/dL [facility] Glucose 132 70 - 199 mg/dL [facility] Comment: Interpretive Data Fasting glucose >/= 126 [...] 2022. Calcium 10.9(H) 8.5 - 10.3 mg/dL CERNER [facility] Bilirubin, total 0.5 0.1 - 1.2 mg/dL [facility] Protein, pl 6.7 6.5 - 8.5 g/dL [facility] Albumin 4.1 3.5 - 5.0 g/dL C[facility] Alk phos 107 40 - 130 Units/L [facility] ALT 21 7 - 45 Units/L [facility] AST 23 10 - 45 Units/L [facility] Blood 08/01/2024 8:26 AM CDT 08/01/2024 8:32 AM CDT Arpan Zamora MD LAB BLOOD ORDERAB LES Final Result [facility] Department [place] [address] * SCAN - RADIOLOGY/IMAGING (07/09/2024) Anatomical Region Laterality Modality Other Provider Scanning Final Result * SCAN - RADIOLOGY/IMAGING (06/28/2024) Anatomical Region Laterality Modality Other Provider Scanning Edited Result - Final * Dexa Axial Skeleton Bone Density 1 or 2 Site (04/25/2024 2:16 PM ALLIANCES CONSULTANT) Anatomical Region Laterality Modality Body N/A Radiographic Siobhan ging Arpan Zamora MD IMG DXA PROCEDURE S Final Result * Diagnostic Mammogram Bilateral W Miguel (03/22/2024 9:46 AM ALLIANCES CONSULTANT) Anatomical Region Laterality Modality Breast Bilateral Mammography 03/22/2024 10:2 2 AM ALLIANCES CONSULTANT Impressions 03/22/2024 10:22 AM ALLIANCES CONSULTANT 1. Post breast conservation therapy changes within [...] Papito Armstrong MD Narrative 03/22/2024 10:22 AM ALLIANCES CONSULTANT EXAMINATION: BILATERAL DIGITAL DIAGNOSTIC MAMMOGRAM INCLUDING CAD [...] RIGHT breast was performed by a trained customer trainer and by Dr. Armstrong. BREAST PARENCHYMAL COMPOSITION: [...] RIGHT breast was performed by a trained customer trainer and by Dr. Armstrong. BREAST PARENCHYMAL COMPOSITION: [...] Recently Relevant to Health Maintenance Insurance MEDICARE [facility] MEDICARE SUPPLEMENT MEDICARE [facility] MEDICARE SUPPLEMENT Care Teams Motorcycle Sales Associate Relationship Specialty Start Date End Date Jayashree Alan MD [address] [place] [address] PCP - General Internal Medicine 04/18/23 Arpan Zamora MD [address] [place] [address] Consulting Physician Medical Oncology 08/19/23 Victoria Connolly MD PhD [address] [facility] [address] [place] [address] Radiation Oncologist Radiation Oncology 10/10/23
--- OUTSIDE RECORDS SUMMARY | 2024-09-26 11:03 | XMS_ITS | Clinical Summary ---
Author Organization [facility] Address [address] [place] [address] Care Team Providers Care Technical Recruiter Name Role Phone Unavailable Primary Care Provider [...]
--- OUTSIDE RECORDS SUMMARY | 2024-09-26 11:03 | XMS_ITS | Encounter Summary ---
Author Organization [facility] Address [address] [place] [address] Phone Care Team Providers Care Compliance Reviewer Name Role Phone Jayashree Alan MD Primary Care Provider + [phone] Arpan Zamora MD Unavailable Victoria Connolly MD PhD Unavailable [phone] Encounter Details Date Type Department Care Team (Latest Contact Info) Description 03/02/2022 Orders Only [facility] Scanning, Provider Social History Tobacco Use Types Packs/Day Years Used Date Smoking Tobacco: Never Assessed Comments Unknown Sex and Gender Information Value Date Recorded Sex Assigned at Not on file Legal Sex Female 2:40 PM 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
[2024-09-26 11:23] LABS: Hematocrit 42.3 % (35.0-42.0); Hemoglobin 14.1 g/dL (11.7-13.8); Mean Corpuscular HGB Conc 33.3 g/dL (32-36); Mean Corpuscular Hemoglobin 29.7 pg (27.0-31.0); Mean Corpuscular Volume 89.1 fL (78.0-102.0); Platelet Count Result 153 K/mm3 (150-420); Red Blood Count 4.75 M/mm3 (4.20-5.40); White Blood Count 6.5 K/mm3 (4.8-10.8)
[2024-09-26 11:36] LABS: Albumin Level 4.1 g/dL (3.5-5.1); Anion Gap 4 mmol/L (4-12); Blood Urea Nitrogen 17 mg/dL (7-17); Calcium 10.5 mg/dL (8.4-10.2); Carbon Dioxide 27 mmol/L (22-30); Chloride 106 mmol/L (98-107); Estimated Glomerular Filt Rate 53; Glucose 108 mg/dL (65-110); Osmolality Calculated 286 mOsm/kg (285-295); Potassium 4.6 mmol/L (3.4-5.0); Sodium 137 mmol/L (137-145)
[2024-09-26 11:38] LABS: Total Protein Urine Random 10 mg/dL; Ur Ttl Prot Creatinine Ratio 0.11 mg/mg (0-0.20)
== END 2024-09-26 10:52 | disposition home or self-care (01) ==
LOC: CHSLAB 10:53
PROVIDERS: PCP Internal Medicine; Visit Provider Internal Medicine Nephrology
DX: N18.31 Chronic kidney disease, stage 3a (principal)
CPT/HCPCS: 36415; 80069; 82570; 83970; 84156; 85027

== ENCOUNTER 2025-03-06 08:26 | Outpatient (CLI) | payer MEDICARE, SELFPAY ==
--- OUTSIDE RECORDS SUMMARY | 2025-03-06 08:37 | XMS_ITS | Encounter Summary ---
Author Organization [facility] Address [address] [place] [address] Phone Care Team Providers Care Director Of Manufacturing Operations Name Role Phone Jayashree Alan MD Primary Care Provider + [phone] Arpan Zamora MD Unavailable Victoria Connolly MD PhD Unavailable [phone] Encounter Details Date Type Department Care Team (Latest Contact Info) Description 03/02/2022 Orders Only [facility] Scanning, Provider Social History Tobacco Use Types Packs/Day Years Used Date Smoking Tobacco: Never Assessed Comments Unknown Sex and Gender Information Value Date Recorded Sex Assigned at Not on file 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
--- OUTSIDE RECORDS SUMMARY | 2025-03-06 08:37 | XMS_ITS | Encounter Summary ---
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
--- OUTSIDE RECORDS SUMMARY | 2025-03-06 08:37 | XMS_ITS ---
Author Organization [place] [id number] [facility] Address [address] [place] [address] Care Team Providers Care Mobile Crane Operator Name Role Phone Jayashree Alan MD Primary Care Provider + [phone] Arpan Zamora MD Unavailable Victoria Connolly MD PhD Unavailable [phone] Active Problems Problem Noted Date Diagnosed Date Malignant neoplasm of centra l portion of left breast in female, estrogen receptor positive 08/05/2023 Cancer Staging:Clinical:Stage IB(cT1c, cN1, cM0, G2, ER+, [place]+, HER2-) - Unsigned Abnormal mammogram 07/08/2023 Mass [...]
--- OUTSIDE RECORDS SUMMARY | 2025-03-06 08:37 | XMS_ITS | Clinical Summary ---
Author Organization [facility] Address [address] [place] [address] Care Team Providers Care Peoplesoft Business Analyst Name Role Phone Unavailable Primary Care Provider Unavailabl e Social History Tobacco Use Types Packs/Day Years Used Date Smoking Tobacco: Never Assessed Comments Unknown Sex and Gender Information Value Date Recorded Sex Assigned at Not on file Legal Sex Female 9:43 AM CDT Gender Identity Not on file Sexual Orientation Not on file Plan of Treatment Health Maintenance Due Date Last Done Comments Hepatitis C 1966 DTaP, Tdap and Td Vaccines ( 1 - Tdap) 11/11/1967 Pneumococcal Vaccine: 50+ Ye ars (1 of 1 - PCV) 1998 Zoster Vaccines (1 of 2) 1998 Annual Medicare Wellness Visit 2013 Dexa Scan (General) 2013 RSV Immunization or 60+ Years (1 - 1-dose 75+ series) 11/11/2023 COVID-19 Vaccine (2024-2 6 season) 2024 Influenza Adult (#1) 2024 Hepatitis A Vaccines Aged Out No long er eligible based on patient's age to complete this topic Meningococcal B Vaccine Aged Out No l onger eligible based on patient's age to complete this topic Meningococcal Vaccine Aged Out No anika alejandra eligible based on patient's age to complete this topic RSV Immunizations Under 20 Months Aged Out No longer eligible based on patient's age to complete this topic Insurance MEDICARE [employer]
--- OUTSIDE RECORDS SUMMARY | 2025-03-06 08:37 | XMS_ITS | Encounter Summary ---
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
--- OUTSIDE RECORDS SUMMARY | 2025-03-06 08:37 | XMS_ITS | Clinical Summary ---
Author Organization [place] [id number] Address [address] [place] [address] Care Team Providers Care Boiler/Chiller Operator Name Role Phone Jayashree Alan MD Primary Care Provider + [phone] Arpan Zamora MD Unavailable Victoria Connolly MD PhD Unavailable [phone] Allergies Active Allergy Reactions Criticality Noted Date Comments Adhesive Blisters High 05/23/2023 Sulfa Nausea only Low 10/19/2023 Medications carvediloL (COREG) 25 mg tabletIndicatio ns:hypertension Take 1 tablet (25 mg total) by mouth 2 (two) times a day 3 Active spironolactone (ALDACTONE) 25 mg tabletIndicatio ns:hypertension Take 0.5 tablets (12.5 mg total) by mouth every morning 3 Active cetirizine (ZyrTEC) 10 mg tabletIndicatio ns:Perennial Allergic Rhinitis Take 1 tablet (10 mg total) by mouth every morning Active losartan (COZAAR) 100 mg tablet Take 1 tablet (100 mg total) by mouth daily 4 Active anastrozole (ARIMIDEX) 1 mg tabletIndicatio ns:Malignant neoplasm of central portion of left breast in female, estrogen receptor positive (HCC) Take 1 tablet (1 mg total) by mouth daily ; to begin taking 2 weeks after the completion of radiation therapy 30 tablet 11 5 04/11/19 26 Active ipratropium (ATROVENT) 42 mcg (0.06 %) nasal spray USE TWO SPRAYS IN EACH NOSTRIL THREE TIMES A DAY 5 Active Active Problems Problem Noted Date Diagnosed [...] on file 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 Gender Identity Not on file Sexual Orientation Not on file Obstetrics History Para Term AB IAB SAB Ectopic Multiple Livin g Live Births 3 3 3 3 3 Date Outcome GA Total Labor Labor/2nd/3rd Weight Sex Type Anes PTL Ashley A1 A5 Name Clin 1972 Term F Vaginal N Living 1974 Term 3.629 kg (8 lb) M C-Secti on N Living Complications:None 1977 Term 3.175 kg (7 lb) F C-Secti on N Living Complications:None Last Filed Vital Signs Vital Sign Reading Time Taken Comments Blood Pressure 157/77 10/31/2024 8:17 AM CDT Pulse 51 10/31/2024 8:17 AM CDT Temperature 36.6 C (97.8 F) 10/31/2024 8:17 AM CDT Respiratory Rate 18 10/31/2024 8:17 AM CDT Oxygen Saturation 97% 10/31/2024 8:17 AM CDT Inhaled Oxygen Concentration - - Weight 101.6 kg (223 lb 14.4 oz) 12/03/2024 8:20 AM CDT Height 167 cm (5' 5.75) 12/03/2024 8:20 AM CDT Body Mass Index 36.41 12/03/2024 8:20 AM CDT Plan of Treatment Health Maintenance Due Date Last Done Comments Depression Screening 1950 Hepatitis C Screening 1950 Hepatitis B Screening 1966 Zoster Vaccine (1 of 2) 11/11/1967 Well Visit 65+ 2013 Fall Risk Assessment 09/11/2024 09/12/2023, 08/05/19 24 Covid-19 Vaccine (2024-2 6 season) 2024 12/07/2022, 01/13/2022, 07/24/2021, Additional history exists Influenza Vaccine (#1) 2024 3, 01/13/2022, 11/07/2019, Additional history exists Osteoporosis Screening-Bone Density Scan 04/25/2026 04/25/2024 DTaP/Tdap/Td Vaccine (2 - Td or Tdap) 09/01/2032 09/01/2022 Pneumococcal vaccine 65+ Completed 03/24/2018, 09/05 Breast Cancer Screening-Mammogram Discontinued 025 Medical Devices Implanted Type Area Tonal Regulator Device Identifier Shelf Expiration Date Model / Serial / Lot Bard Peripheral Vascular Ultraclip Bard 17ga 10cm 2 Trigger Permanent Ultrasound [id number] - [id number] Implanted:Qty: 1 on 05/25/2023 at [facility] Left: Breast Bard Peripheral Vascular [id number] / / [employer] Dixon 20ga 7.5cm 2 Part Stabilizer Repositionable Depth Uday [id number] - [id number] Implanted:Qty: 1 on 08/05/2023 at [facility] [employer] [id number] 12/31/2027 [id number] / / [id number] Procedures Procedure Name Priority Date/Time Associated Diagnosis Comments DEXA AXIAL SKELETON BONE DENSITY 1 OR MORE SITES Schedule Routine, Read Routine (OP Routine) 04/25/2024 2:16 PM CRIMINAL ATTORNEY DIAGNOSTIC MAMMOGRAM BILATERAL W MIGUEL Schedule Routine, Read Routine (OP Routine) 03/22/2024 9:46 AM CRIMINAL ATTORNEY Malignant neoplasm of upper-outer quadrant of left breast in female, estrogen receptor positive (HCC) from Last 3 Months or Most Recently Relevant to Health Maintenance Results * Dexa Axial Skeleton Bone Density 1 or 2 Site (04/25/2024 2:16 PM CRIMINAL ATTORNEY) Anatomical Region Laterality Modality Body N/A Radiographic Siobhan ging us Arpan Zamora MD IMG DXA PROCEDURE S Final Result * Diagnostic Mammogram Bilateral W Miguel (03/22/2024 9:46 AM CRIMINAL ATTORNEY) Anatomical Region Laterality Modality Breast Bilateral Mammography 03/22/2024 10:2 2 AM CRIMINAL ATTORNEY Impressions 03/22/2024 10:22 AM CRIMINAL ATTORNEY 1. Post breast conservation therapy changes within [...] Papito Armstrong MD Narrative 03/22/2024 10:22 AM CRIMINAL ATTORNEY EXAMINATION: BILATERAL DIGITAL DIAGNOSTIC MAMMOGRAM INCLUDING CAD [...] RIGHT breast was performed by a trained certified surgical tech/first assistant and by Dr. Armstrong. BREAST PARENCHYMAL COMPOSITION: [...] RIGHT breast was performed by a trained certified surgical tech/first assistant and by Dr. Armstrong. BREAST PARENCHYMAL COMPOSITION: [...] Relevant to Health Maintenance Insurance MEDICARE [facility] MEDICARE SUPPLEMENT MEDICARE [employer] MEDICARE SUPPLEMENT Care Teams Boiler/Chiller Operator Relationship Specialty Start Date End Date Jayashree Alan MD [address] [place] [address] PCP - General Internal Medicine 04/18/23 Arpan Zamora MD [address] [place] [address] Consulting Physician Medical Oncology 08/19/23 Victoria Connolly MD PhD [id number] [facility] [address] [facility] [address] [place] [address] Radiation Oncologist Radiation Oncology 10/10/23
[2025-03-06 08:53] LABS: Hematocrit 43.6 % (35.0-42.0); Hemoglobin 14.3 g/dL (11.7-13.8); Mean Corpuscular HGB Conc 32.8 g/dL (32-36); Mean Corpuscular Hemoglobin 29.2 pg (27.0-31.0); Mean Corpuscular Volume 89.0 fL (78.0-102.0); Platelet Count Result 171 K/mm3 (150-420); Red Blood Count 4.90 M/mm3 (4.20-5.40); White Blood Count 7.0 K/mm3 (4.8-10.8)
[2025-03-06 09:09] LABS: Add Urine Microscopic? YES; Appearance Urine Clear (Clear); Glucose Urine UA Negative (Negative); Leukocyte Esterase Ur 1+ (Negative); Nitrate Urine Positive (Negative); Specific Grav Ur 1.020 (1.010-1.020)
[2025-03-06 09:20] LABS: Hemoglobin A1C 5.3 % (<5.7)
[2025-03-06 10:06] LABS: Alanine Aminotransferase 19 U/L (6-35); Albumin Level 4.4 g/dL (3.5-5.1); Alkaline Phosphatase 119 U/L (38-126); Anion Gap 8 mmol/L (4-12); Aspartate Amino Transferase 24 U/L (14-36); Bilirubin,Total 1.0 mg/dL (0.2-1.3); Blood Urea Nitrogen 23 mg/dL (7-17); Calcium 11.2 mg/dL (8.4-10.2); Carbon Dioxide 28 mmol/L (22-30); Chloride 107 mmol/L (98-107); Cholesterol 201 mg/dL (0-200); Creatine Kinase 39 U/L (30-135); Estimated Glomerular Filt Rate 48; Glucose 121 mg/dL (65-110); HDL Direct 51 mg/dL; Osmolality Calculated 300 mOsm/kg (285-295); Potassium 5.3 mmol/L (3.4-5.0); Sodium 143 mmol/L (137-145); Total Protein 6.4 g/dL (6.3-8.2); Triglycerides 163 mg/dL (<150)
[2025-03-06 10:22] LABS: Free T4 Free Thyroxine 0.97 ng/dL (0.78-2.19)
[2025-03-06 10:36] LABS: Thyroid Stimulating Hormone 1.440 uIU/mL (0.465-4.680)
[2025-03-08 10:38] LABS: Parathyroid Intact 52.8 pg/mL (14.5-75.2)
[2025-03-08 14:08] LABS: Calcium, Ionized 5.9 mg/dL (4.5-5.6)
== END 2025-03-06 08:27 | disposition home or self-care (01) ==
LOC: CHSLAB 08:28
PROVIDERS: PCP Internal Medicine; Visit Provider Internal Medicine
DX: I10 Essential (primary) hypertension (principal); E78.2 Mixed hyperlipidemia; R73.01 Impaired fasting glucose; R30.0 Dysuria; E21.0 Primary hyperparathyroidism
CPT/HCPCS: 36415; 80053; 80061; 81001; 82330; 82550; 83036; 83970; 84439; 84443; 85027; 87086; 87186